=== PATIENT | female | born 1950 | race Caucasian/White ===

== ENCOUNTER 2024-05-31 22:23 | Inpatient (IN) | payer MEDICAID, OTHER ==
[~2024-05-31] VITALS: Ht 149.9 cm; Wt 66.0 kg
[2024-05-31 22:42] VITALS: PULSE 120; RESP 25; O2SAT 82
--- NOTE | 2024-05-31 22:43 | ED.PDOC ---
HPI Comments 74-year-old female came to the ER due to chest pains. Patient has history of hypertension, diabetes and dyslipidemia. Patient Lithuanian-speaking. States she has been having episodes of chest pains the past few days but the resolves spontaneously. For the past 2 hours, patient has been having constant substernal chest pains, pressure, radiating down her left arm, associated with shortness of breath. Denies any nausea or vomiting. Persistence of chest pains prompted patient to come to the emergency room. Patient saturating of 76% on room air, with a blood pressure of 155/82 mm Hg Chief Complaint: Chest Pain Time Seen by MD: 22:42 Reviewed Notes: Nurses Notes Allergies: Coded Allergies: No Known Drug Allergy (Verified Allergy, Unknown, 05/31/24) Information Source: Patient Mode of Arrival: Ambulatory Severity: Moderate Timing: Hours Duration: Since onset Prehospital treatment: None Location: Substernal Radiation: Arm (L) Quality: Pressure Onset: With Light Exertion Cardiac Risk Factors: Hyperlipidemia, HTN, Diabetes History of: Similar pain in past Associated Signs and Symptoms: SOB Past Medical History PAST MEDICAL HISTORY: DM, High Lipids, HTN Surgical History: Denies all surgeries LONG TERM CARE ADMINISTRATOR History: Denies all LONG TERM CARE ADMINISTRATOR Hx Family History Family History: Reviewed,noncontributory to illness Social History Smoker: Non-Smoker Alcohol: Denies ETOH Use Drugs: Denies Drug Use Lives In: Home Constitutional: denies: chills, diaphoresis, fatigue, fever, malaise, sweats, weakness, others EENTM: denies: blurred vision, double vision, ear bleeding, ear discharge, ear drainage, ear pain, ear ringing, eye pain, eye redness, hearing loss, mouth pain, mouth swelling, nasal discharge, nose bleeding, nose congestion, nose pain, photophobia, tearing, throat pain, throat swelling, voice changes, others Respiratory: reports: SOB at rest, shortness of breath; denies: cough, hemoptysis, orthopnea, SOB with excertion, stridor, wheezing, others Cardiovascular: reports: chest pain, dizzy spells, diaphoresis, left arm pain; denies: Dyspnea on exertion, edema, irregular heart beat, lightheadedness, palpitations, PND, syncope, others Gastrointestinal: denies: abdomen distended, abdominal pain, blood streaked bowels, constipated, diarrhea, dysphagia, difficulty swallowing, hematemesis, melena, nausea, poor appetite, poor fluid intake, rectal bleeding, rectal pain, vomiting, others Genitourinary: denies: abnormal vagina bleeding, burning, dyspareunia, dysuria, flank pain, frequency, hematuria, incontinence, pain, , vagina discharge, urgency, others Neurological: denies: dizziness, fainting, headache, left sided numbness, left sided weakness, numbness, paresthesia, pre-existing deficit, right sided numbness, right sided weakness, seizure, speech problems, tingling, tremors, weakness, others Musculoskeletal: denies: back pain, gout, joint pain, joint swelling, muscle pain, muscle stiffness, neck pain, others Integumetry: denies: bruises, change in color, change in hair/nails, dryness, laceration, lesions, lumps, rash, wounds, others Allergic/Immunocompromised: denies: Difficulty Healing, Frequent Infections, Hives, Itching, others Hematologic/Lymphatic: denies: anemia, blood clots, easy bleeding, easy bruising, swollen glands, others Endocrine: denies: excessive hunger, excessive sweating, excessive thirst, excessive urination, flushing, intolerance to cold, intolerance to heat, unexplained weight gain, unexplained weight loss, others Psychiatric: denies: anxiety, bipolar disorder, depression, hopeless, panic disorder, schizophrenia, sleepless, suicidal, others Physical Exam General Appearance: No Apparent Distress, Normal HEENT: Normal ENT Inspection, Pharynx Normal, TMs Normal Neck: Full Range of Motion, Non-Tender, Normal, Normal Inspection Respiratory: Chest Non-Tender, Lungs Clear, No Accessory Muscle Use, No Respiratory Distress, Normal Breath Sounds Cardiovascular: No Edema, No JVD, No Murmur, No Gallop, Normal Peripheral Pulses, Regular Rate/Rhythm Breast Exam: Deferred Gastrointestinal: No Organomegaly, Non Tender, No Pulsatile Mass, Normal Bowel Sounds, Soft Genitalia: Deferred Pelvic: Deferred Rectal: Deferred Extremities: No calf tenderness, Normal capillary refill, Normal inspection, Normal range of motion, Non-tender, No pedal edema Musculoskeletal : Apperance: Normal 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 Was a procedure done?: No CP Differential Dx Differential Diagnosis: Angina, Anxiety / Panic Attack, Hypoxia Differential Diagnosis: CHF Differential Diagnosis: Angina, Chest Wall Pain, Costochondritis, Esophageal reflux/spasm, Gastritis, Myocardial Infarction, Pneumonia X-Ray, Labs, Meds, VS Vital Signs Date Time Temp Pulse Resp B/P (MAP) Pulse Ox O2 Delivery O2 Flow Rate FiO2 06/01/24 02:16 127/50 06/01/24 02:00 90 31 127/50 (75) 93 06/01/24 02:00 86 06/01/24 01:48 93 06/01/24 01:13 109 24 165/76 (105) 100 06/01/24 01:10 105 164/76 99 Facial BiPAP Mask 80 06/01/24 00:37 190/69 06/01/24 00:00 98 22 209/94 (132) 100 05/31/24 23:52 158/91 05/31/24 23:08 104 24 158/91 (113) 100 05/31/24 23:05 105 21 100 Bi-Pap+ 80 80 05/31/24 23:00 105 25 158/91 95 80 05/31/24 22:55 106 158/91 95 Facial BiPAP Mask 80 05/31/24 22:52 205/91 05/31/24 22:49 114 05/31/24 22:43 109 05/31/24 22:43 106 05/31/24 22:42 120 25 82 Non-Rebreather 15 N/A 05/31/24 22:42 97.2 120 25 205/103 (137) 82 97.2 05/31/24 22:39 98.4 116 22 155/82 (106) 77 98.4 05/31/24 22:37 111 05/31/24 22:26 106 Lab Test 06/01/24 01:02 06/01/24 00:55 06/01/24 00:45 05/31/24 23:47 Range/Units Blood Gas Specimen Type Arterial Blood Gas Sample Site Right radial Blood Gas Patient Temperature 37.0 Arterial Blood Date Drawn [id number] Arterial Blood pH 7.274 L 7.350-7.450 Arterial Blood Partial Pressure CO2 31.2 L 32.0-45.0 mmHg Arterial Blood Partial Pressure O2 201.5 H 83.0-108.0 mmHg Arterial Blood HCO3 14.1 L 21.0-28.0 mmol/L Arterial Blood Oxygen Saturation 98.9 H 94.0-98.0 % Arterial Blood Base Excess -11.6 L -2.0-3.0 mmol/L Arterial Blood Oxyhemoglobin 98.3 H 94.0-98.0 % Arterial Blood Carboxyhemoglobin 0.3 L 0.5-1.5 % Arterial Blood Methemoglobin 0.3 0.0-1.5 % Anil Test Yes Blood Gas Total Hemoglobin 9.20 L 12.0-16.0 g/dL Blood Gas Modality Mask - bipap FiO2 % 80.0 Blood Gas EPAP 5 Blood Gas IPAP 12 Lactic Acid Level 1.8 0.4-2.0 mmol/L Troponin I High Sensitivity 2372 *H 1354 *H </=34 ng/L Test 05/31/24 22:36 Range/Units White Blood Count 21.0 H 4.4-10.8 10^3/uL Red Blood Count 3.29 L 4.0-5.20 10^6/uL Hemoglobin 9.1 L 12.2-16.2 g/dL Hematocrit 27.7 L 36.0-46.0 % Mean Corpuscular Volume 84.1 80.0-100.0 fL Mean Corpuscular Hemoglobin 27.6 L 28.0-32.0 pg Mean Corpuscular Hemoglobin Concent 32.8 32.0-36.0 g/dL Red Cell Distribution Width 14.4 H 11.8-14.3 % Platelet Count 397 140-450 10^3/uL Mean Platelet Volume 9.3 6.9-10.8 fL Neutrophils (%) (Auto) 81.4 H 37.0-80.0 % Lymphocytes (%) (Auto) 12.9 10.0-50.0 % Monocytes (%) (Auto) 4.7 0.0-12.0 % Eosinophils (%) (Auto) 0.6 0.0-7.0 % Basophils (%) (Auto) 0.4 0.0-2.0 % Neutrophils # (Auto) 17.1 H 1.6-8.6 10 ^3/uL Lymphocytes # (Auto) 2.7 0.4-5.4 10 ^3/uL Monocytes # (Auto) 1.0 0-1.3 10 ^3/uL Eosinophils # (Auto) 0.1 0-0.8 10 ^3/uL Basophils # (Auto) 0.1 0-0.2 10 ^3/uL Nucleated Red Blood Cells 0.0 % Prothrombin Time 10.0 9.3-11.8 sec Prothrombin Time INR 0.94 0.9-1.15 Activated Partial Thromboplast Time 30.1 24.5-34.5 SEC Sodium Level 133 L 136-145 mmol/L Potassium Level 5.4 H 3.5-5.1 mmol/L Chloride Level 102 98-107 mmol/L Carbon Dioxide Level 15 L 20-31 mmol/L Anion Gap 16 H 5-15 Blood Urea Nitrogen 101 *H 9-23 mg/dL Creatinine 7.38 H 0.550-1.02 mg/dL Glomerular Filtration Rate Calc 5 >90 mL/min BUN/Creatinine Ratio 13.7 10.0-20.0 Serum Glucose 349 H 74-106 mg/dL Calcium Level 9.6 8.7-10.4 mg/dL Troponin I High Sensitivity 276 *H </=34 ng/L B-Type Natriuretic Peptide 604.23 0-100 pg/mL Microbiology Date/Time Source Procedure Growth Status 06/01/24 00:55 Blood Blood Culture - Preliminary Resulted 06/01/24 00:45 Blood Blood Culture - Preliminary NO GROWTH AFTER 72 HOURS OF INCUBATION. Resulted CHEST RADIOGRAPH Indication: chest pain Technique: Single frontal view of the chest was obtained COMPARISON: None FINDINGS: Lines and Tubes: None Lungs: Clear Pleura: No effusion. No pneumothorax. Cardiomediastinal contours: Unremarkable Bones: Unremarkable IMPRESSION: No acute disease. Time of 1ST Reevaluation: 22:37 Reevaluation 1ST: Unchanged Patient Education/Counseling: Diagnosis, Treatment Family Education/Counseling: No Family Present Departure 1 Departure Time of Disposition: 01:49 (Patient with a acute on chronic respiratory failure presented with the shortness of breath. Patient likely with flash pulmonary edema. Patient placed on BiPAP received nitro patient was admitted for further workup) Impression: Primary Impression: Acute and chronic respiratory failure Additional Impressions: Shortness of breath Chest pain Qualified Codes: R07.9 - Chest pain, unspecified Disposition: 09 ADMITTED INPATIENT Admit to: Med Surg Condition: Serious Critical Care Note Critical Care Time?: Yes (45 min-critical care time only) Critical care comment: Acute chest pain Authorized and Performed by: Roberto Gaitan MD Total critical care time: Approximately 39 minutes Due to a high probability of clinically significant, life threatening deterioration, the patient required my highest level of preparedness to intervene emergently and I personally spent this critical care time directly and personally managing the patient. This critical care time included obtaining a history; examining the patient; pulse oximetry; ordering and review of studies; arranging urgent treatment with development of a management plan; evaluation of patient's response to treatment; frequent reassessment; and, discussions with other providers. This critical care time was performed to assess and manage the high probability of imminent, life-threatening deterioration that could result in multi-organ failure. It was exclusive of separately billable procedures and treating other patients and teaching time. Please see my other sections and the rest of the note for further information on patient assessment and treatment. Stability Stability form required: No Heart Score Heart Score: Heart Score Response (Comments) Value History Highly Suspicious [address]-Deviation 2 Age >65 2 Risk Factors >3 or Hx ASHD 2 Troponin 1-2 x's Normal limit 1 Total 9 I personally scribed for ROBERTO GAITAN MD (ÓSCAR) on 05/31/24 at 22:43. Electronically submitted by Ceasar Nieto ([employer]). I personally scribed for ROBERTO GAITAN MD (ÓSCAR) on 06/01/24 at 01:52. Electronically submitted by Ceasar Nieto ([employer]). I personally scribed for ROBERTO GAITAN MD (ÓSCAR) on 06/02/24 at 00:50. Electronically submitted by Ceasar Nieto ([facility]). ROBERTO GAITAN MD May 31, 2024 22:43
[2024-05-31 22:49] LABS: Basophils # (auto) 0.1 10 ^3/uL (0-0.2); Basophils % (auto) 0.4 % (0.0-2.0); Eosinophils # (auto) 0.1 10 ^3/uL (0-0.8); Eosinophils % (auto) 0.6 % (0.0-7.0); Hematocrit 27.7 % (36.0-46.0); Hemoglobin 9.1 g/dL (12.2-16.2); Lymphocytes # (auto) 2.7 10 ^3/uL (0.4-5.4); Lymphocytes % (auto) 12.9 % (10.0-50.0); Mean Corpuscular Hemoglobin 27.6 pg (28.0-32.0); Mean Corpuscular Hgb Conc. 32.8 g/dL (32.0-36.0); Mean Corpuscular Volume 84.1 fL (80.0-100.0); Monocytes % (auto) 4.7 % (0.0-12.0); Neutrophils # (auto) 17.1 10 ^3/uL (1.6-8.6); Neutrophils % (auto) 81.4 % (37.0-80.0); Platelet Count (auto) 397 10^3/uL (140-450); Red Blood Cells 3.29 10^6/uL (4.0-5.20); Red Cell Distribution Width 14.4 % (11.8-14.3)
[2024-05-31] MEDS: ASPirin 81 mg TAB PO ONE (22:52)
[2024-05-31] MEDS: NITROGLYCERIN 0.4 MG SL TAB SL ONE (22:52)
[2024-05-31 22:55] VITALS: BP 158/91; PULSE 106; O2SAT 95
[2024-05-31 23:00] VITALS: BP 158/91; PULSE 105; RESP 25; O2SAT 95
[2024-05-31 23:05] VITALS: PULSE 105; RESP 21; O2SAT 100
[2024-05-31 23:05] LABS: Chloride 102 mmol/L (98-107)
[2024-05-31 23:06] LABS: Anion Gap 16 (5-15); Calcium 9.6 mg/dL (8.7-10.4)
[2024-05-31 23:11] LABS: BUN/Creatinine Ratio 13.7 (10.0-20.0)
[2024-05-31 23:12] LABS: Carbon Dioxide 15 mmol/L (20-31); Glucose 349 mg/dL (74-106); Potassium 5.4 mmol/L (3.5-5.1); Sodium 133 mmol/L (136-145)
[2024-05-31 23:13] LABS: Blood Urea Nitrogen 101 mg/dL (9-23)
--- NOTE | 2024-05-31 23:22 | DVH ---
CHEST RADIOGRAPH Indication: chest pain Technique: Single frontal view of the chest was obtained COMPARISON: None FINDINGS: Lines and Tubes: None Lungs: Clear Pleura: No effusion. No pneumothorax. Cardiomediastinal contours: Unremarkable Bones: Unremarkable IMPRESSION: No acute disease.
[2024-06-01] VITALS (37 sets, daily range): BP systolic 96–164; BP diastolic 43–89; PULSE 84–116; RESP 19–30; TEMP 94.5–98.2; O2SAT 89–100
[2024-06-01] MEDS: hydrALAZINE HCL 20 MG/ML VL IV ONE (00:37)
[2024-06-01 00:50] LABS: INR 0.94 (0.9-1.15); Partial Thromboplastin Time 30.1 SEC (24.5-34.5)
[2024-06-01] MEDS: VANCOMYCIN 1GM/200ML PM 200 ML IV ONE (01:07)
[2024-06-01 01:12] LABS: Base Excess -11.6 mmol/L (-2.0-3.0)
[2024-06-01] MEDS: HEPARIN SODIUM (PORCINE) 5000 UNITS/ML 1ML VIAL IV ONE (01:42)
[2024-06-01] MEDS: HEPARIN DRIP/D5W 100UNITS/ML 250 ML IV SCH ×2 (01:57→09:30)
[2024-06-01] MEDS: CEFEPIME 2GM/50ML NS 50 ML IV ONE (02:08)
[2024-06-01] MEDS ORDERED: NITROGLYCERIN 50MG/250ML 250 ML IV SCH (02:15)
[2024-06-01] MEDS: NITROGLYCERIN 50MG/250ML 250 ML IV ONE (02:16)
[2024-06-01] MEDS ORDERED: DOCUSATE SOD 100 MG CAP PO PRN (02:30)
[2024-06-01] MEDS ORDERED: MORPHINE SULFATE INJ 2 MG/ml SYRG IV PRN ×2 (02:30)
[2024-06-01] MEDS ORDERED: DEXTROSE (50%) 50ML SYRG IV PRN ×4 (02:30→13:30)
[2024-06-01] MEDS ORDERED: NITROGLYCERIN 0.4 MG SL TAB SL PRN (02:30)
[2024-06-01] MEDS ORDERED: LORazepam 0.5 MG TAB PO PRN (02:30)
[2024-06-01] MEDS ORDERED: ONDANSETRON HCL 4 MG/2 ML VIAL IV PRN (02:30)
[2024-06-01] MEDS ORDERED: ACETAMINOPHEN 325 MG TAB PO PRN (02:30)
[2024-06-01] MEDS: INSULIN DRIP 100 UNIT/100ML 100 ML IV SCH ×3 (03:01→08:49)
--- NOTE | 2024-06-01 03:01 | DVHHPRES ---
History of Present Illness Resident Creating Document: IZZY MEJIAS History of Present Illness Shea Aviles 74-year-old female patient who presents to ED with chief complaint of intermittent oppressive retrosternal chest pain which started approximately two weeks ago in functional class IV which lasted approximately 30 minutes with intensity 5/10, radiates towards left arm and associated with dyspnea. Patient reports that her chest pain increased in intensity to 10/10, prompting her visit to the ED. patient came this past Tuesday to [place] to visit her daughter for Marlena, she is originally from [place]. Her PCP is in [place], when asked about her home medication, she presents all her pills in one bottle of telmisartan and hydrochlorothiazide, she does not recall what medication she takes and she is noncompliant with this medication. denies fever, chills, palpitation, syncope, nausea, vomiting, diarrhea, constipation, sick contacts, dysuria, bleeding and motor or sensory deficit. Time Past medical history: Hypertension, diabetes non insulin requiring, non adherent Surgical history: Denies Family history: Noncontributory Social history: Patient lives in [place], came to visit her daughter in [place]. Denies current tobacco, alcohol and other drug abuse Allergies: Denies Home medication: She does not recall home medication. Patient showed a bottle of telmisartan and hydrochlorothiazide Patient seen and examined at bedside. Currently has no chest pain. She is on nasal cannula at 2 liters/minute. Required during her ED visit BiPAP with FiO2 at 80%. Past Medical History Per HPI Past Surgical History Per HPI Family History Per HPI Past Social History Per HPI Review of Systems Review of Systems Per HPI Allergies: Coded Allergies: No Known Drug Allergy (Verified Allergy, Unknown, 05/31/24) Medications Current Medications Medications Dose Ordered Sig/[place] Route Start Time Stop Time Status Last Admin Dose Admin Heparin Sodium/ Dextrose 250 ml @ 6 mls/hr Q24H IV 06/01/24 01:45 06/01/24 01:57 6 MLS/HR Lorazepam 0.5 mg Q6HP PRN PO 06/01/24 02:30 UNV Docusate Sodium 100 mg BIDPRN PRN PO 06/01/24 02:30 UNV Acetaminophen 650 mg Q6HP PRN PO 06/01/24 02:30 UNV Ondansetron HCl 4 mg Q4HP PRN IV 06/01/24 02:30 UNV Morphine Sulfate 2 mg Q4HPRN PRN IV 06/01/24 02:30 UNV Nitroglycerin 0.4 mg Q5MINP PRN SL 06/01/24 02:30 UNV Morphine Sulfate 2 mg Q30M PRN IV 06/01/24 02:30 UNV Insulin Human (Reg)/Sodium Chloride 100 ml @ 0.5 mls/hr Q24H IV 06/01/24 02:30 UNV Diagnostic Test (Pha) 1 strip Q90MIN 06/01/24 03:00 UNV Dextrose 50 ml PRN PRN IV 06/01/24 02:30 UNV Insulin Glargine 15 units DAILY SC 06/02/24 10:00 UNV Aspirin 81 mg DAILY PO 06/01/24 10:00 UNV Atorvastatin Calcium 40 mg HS PO 06/01/24 22:00 UNV Carvedilol 3.125 mg Q12HR PO 06/01/24 10:00 UNV Furosemide 20 mg DAILY IV 06/01/24 10:00 UNV Pantoprazole Sodium 40 mg DAILY IV 06/01/24 10:00 UNV Ipratropium Lyman 0.5 mg Q6HWA NEB 06/01/24 06:00 UNV Levalbuterol HCl 0.625 mg Q6HR NEB 06/01/24 06:00 UNV Ceftriaxone Sodium 50 ml @ 100 mls/hr DAILY@09 IV 06/01/24 09:00 UNV Exam Vital Signs Vital Signs Date Time Temp Pulse Resp B/P (MAP) Pulse Ox O2 Delivery O2 Flow Rate FiO2 06/01/24 02:16 127/50 06/01/24 02:00 90 31 93 06/01/24 01:10 Facial BiPAP Mask 80 05/31/24 22:42 15 05/31/24 22:42 97.2 97.2 Exam Patient lying in bed, in no acute distress General: Lucid, afebrile, mucosae are moist Cardiovascular: Normal S1 and S2. No murmurs, gallops or rubs Respiratory: Regular ventilation mechanics, tachypneic. Diffuse expiratory wheezing, bibasilar rales, rest of lung auscultation is clear. She is on nasal cannula2 liters/minute Abdomen: Soft, nontender, no organomegaly, normal bowel sounds MSK/skin: Mobilizes 4 limbs. Skin is dry and warm Neurological: Oriented in 3 spheres. No motor no sensitive deficits. Pupils are isocoric and reactive Labs/Xrays Labs Test 06/01/24 01:02 06/01/24 00:55 06/01/24 00:45 05/31/24 22:36 Range/Units Blood Gas Specimen Type Arterial Blood Gas Sample Site Right radial Blood Gas Patient Temperature 37.0 Arterial Blood Date Drawn [id number] Arterial Blood pH 7.274 L 7.350-7.450 Arterial Blood Partial Pressure CO2 31.2 L 32.0-45.0 mmHg Arterial Blood Partial Pressure O2 201.5 H 83.0-108.0 mmHg Arterial Blood HCO3 14.1 L 21.0-28.0 mmol/L Arterial Blood Oxygen Saturation 98.9 H 94.0-98.0 % Arterial Blood Base Excess -11.6 L -2.0-3.0 mmol/L Arterial Blood Oxyhemoglobin 98.3 H 94.0-98.0 % Arterial Blood Carboxyhemoglobin 0.3 L 0.5-1.5 % Arterial Blood Methemoglobin 0.3 0.0-1.5 % Anil Test Yes Blood Gas Total Hemoglobin 9.20 L 12.0-16.0 g/dL Blood Gas Modality Mask - bipap FiO2 % 80.0 Blood Gas EPAP 5 Blood Gas IPAP 12 Lactic Acid Level 1.8 0.4-2.0 mmol/L Troponin I High Sensitivity 2372 *H </=34 ng/L White Blood Count 21.0 H 4.4-10.8 10^3/uL Red Blood Count 3.29 L 4.0-5.20 10^6/uL Hemoglobin 9.1 L 12.2-16.2 g/dL Hematocrit 27.7 L 36.0-46.0 % Mean Corpuscular Volume 84.1 80.0-100.0 fL Mean Corpuscular Hemoglobin 27.6 L 28.0-32.0 pg Mean Corpuscular Hemoglobin Concent 32.8 32.0-36.0 g/dL Red Cell Distribution Width 14.4 H 11.8-14.3 % Platelet Count 397 140-450 10^3/uL Mean Platelet Volume 9.3 6.9-10.8 fL Neutrophils (%) (Auto) 81.4 H 37.0-80.0 % Lymphocytes (%) (Auto) 12.9 10.0-50.0 % Monocytes (%) (Auto) 4.7 0.0-12.0 % Eosinophils (%) (Auto) 0.6 0.0-7.0 % Basophils (%) (Auto) 0.4 0.0-2.0 % Neutrophils # (Auto) 17.1 H 1.6-8.6 10 ^3/uL Lymphocytes # (Auto) 2.7 0.4-5.4 10 ^3/uL Monocytes # (Auto) 1.0 0-1.3 10 ^3/uL Eosinophils # (Auto) 0.1 0-0.8 10 ^3/uL Basophils # (Auto) 0.1 0-0.2 10 ^3/uL Nucleated Red Blood Cells 0.0 % Prothrombin Time 10.0 9.3-11.8 sec Prothrombin Time INR 0.94 0.9-1.15 Activated Partial Thromboplast Time 30.1 24.5-34.5 SEC Sodium Level 133 L 136-145 mmol/L Potassium Level 5.4 H 3.5-5.1 mmol/L Chloride Level 102 98-107 mmol/L Carbon Dioxide Level 15 L 20-31 mmol/L Anion Gap 16 H 5-15 Blood Urea Nitrogen 101 *H 9-23 mg/dL Creatinine 7.38 H 0.550-1.02 mg/dL Glomerular Filtration Rate Calc 5 >90 mL/min BUN/Creatinine Ratio 13.7 10.0-20.0 Serum Glucose 349 H 74-106 mg/dL Calcium Level 9.6 8.7-10.4 mg/dL B-Type Natriuretic Peptide 604.23 0-100 pg/mL Assessment/Plan Assessment/Plan Assessment: NSTEMI probable type 1 Hypertensive emergency DKA Sepsis probably secondary to UTI does pneumonia Acute congestive heart failure (pending LVEF) Acute respiratory failure due to above ROSSY hemodynamically mediated Hyperkalemia Diabetes Nonadherent Plan: Optimize afterload, resolved with IV hydralazine and p.o. antihypertensive medication. Nitroglycerin on standby Patient is currently on heparin drip, IV furosemide, administer low-dose aspirin, on statins. EKG completed which shows severe ischemia (ST elevation in aVR, which is associated with severe left main disease). Consulted Cardiology to evaluate coronary angiography (patient has severe ROSSY) Consulted Nephrology to evaluate need of hemodialysis Patient currently on IV insulin drip, oxygen therapy (on admission required BiPAP, currently on nasal cannula2 liters/minute), empiric IV antibiotic (ceftriaxone), bronchodilators. Have counseled patient with adherence to medication and the importance of knowing what medication she is taking. Goals of care discussed with patient for over 18 minutes: Full code status Discussed plan with Dr. Astudillo, patient, family and nurses: Patient is currently on LOVE status due to insulin drip, she is on heparin drip, requiring oxygen therapy, IV antibiotics, bronchodilators. Consulted Cardiology and Nephrology to optimize medical therapy and evaluate need for coronary angiography and hemodialysis. Patient has poor prognosis. Plan discussed with: Patient, Daughter, Other (Nurses) My Orders Orders - IZZY MEJIAS RESIDENT Procedure Category Date Status Time Admit ADMIT 06/01/24 Transmitted 02:26 Code Status CODE 06/01/24 Transmitted 02:26 Vital Signs [facility] 06/01/24 In Process 02:26 Review Orders With [facility] 06/01/24 In Process Adm. 02:26 Npo (Nothing By DIET 06/01/24 Transmitted Mouth) Diet Breakfast Lorazepam Tablet PHA 06/01/24 Logged (Ativan Tablet) 02:30 Docusate Sodium PHA 06/01/24 Logged Capsule (Colace 02:30 Acetaminophen Tablet PHA 06/01/24 Logged (Tylenol Tablet) 02:30 Notify Md Of Changes [facility] 06/01/24 In Process From Base 02:26 Advance Directive [facility] 06/01/24 In Process 02:26 Echo 2d Mode Cardiac US 06/01/24 Logged DOP 02:26 Patient Condition ORDERS 06/01/24 Transmitted 02:26 Allergies [facility] 06/01/24 In Process 02:26 Ondansetron Hcl PHA 06/01/24 Logged (Zofran) 02:30 Morphine Sulfate PHA 06/01/24 Logged Injection 02:30 Nitroglycerin PHA 06/01/24 Logged Sublingual (Ntrostat 02:30 Morphine Sulfate PHA 06/01/24 Logged Injection 02:30 Oxygen By Nasal RT 06/01/24 Transmitted Cannula 02:26 Notify Of Changes [facility] 06/01/24 In Process From Base 02:26 Brick Loader For [facility] 06/01/24 In Process 24 Hours 02:26 Emergency Dysrhythmia [facility] 06/01/24 In Process Protocol 02:26 Rhythm Strips Once [facility] 06/01/24 In Process Every Shift 02:26 Vitamin D, 25-Hydroxy LAB 06/01/24 Logged 02:26 Vitamin B12 LAB 06/01/24 Logged 02:26 Urinalysis LAB 06/01/24 Logged 02:26 Thyroid Stimulating LAB 06/01/24 Logged Hormone 02:26 Phosphorus LAB 06/01/24 Logged 02:26 Magnesium LAB 06/01/24 Logged 02:26 Lipid Panel LAB 06/01/24 Logged 02:26 Hemoglobin A1c LAB 06/01/24 Logged 02:26 Drug Screen LAB 06/01/24 Logged 02:26 Urine Creatinine LAB 06/01/24 Logged 02:26 Osmolality Urine LAB 06/01/24 Logged 02:26 Microalbumin Random LAB 06/01/24 Logged Urine 02:26 Urine Sodium LAB 06/01/24 Logged 02:26 Urine LAB 06/01/24 Logged Protein/Creatinine Urine Protein LAB 06/01/24 Logged 02:26 Urine Bacterial [facility] 06/01/24 Logged Culture 02:26 Kidney US 06/01/24 Logged 04:00 Complete Blood Count LAB 06/01/24 Logged 04:00 Insulin Drip 100 PHA 06/01/24 Logged Unit/100ml (Myxredlin 02:30 Glucose Blood PHA 06/01/24 Logged (Accu-Chek Comfort 03:00 D/C All Diabetic [facility] 06/01/24 In Process Medications 02:26 Insulin Drip Protocol [facility] 06/01/24 In Process 02:26 Dextrose 50% Syringe PHA 06/01/24 Logged 02:30 Insulin Lantus PHA 06/01/24 Logged (Glargine) (Lantus) 02:30 Insulin Lantus PHA 06/02/24 Logged (Glargine) (Lantus) 10:00 Basic Metabolic Panel LAB 06/01/24 Logged 02:26 Aspirin Tablet PHA 06/01/24 Logged 10:00 Atorvastatin (Lipitor) PHA 06/01/24 Logged 02:30 Atorvastatin (Lipitor) PHA 06/01/24 Logged 22:00 Carvedilol Tablet PHA 06/01/24 Logged (Coreg Tablet) 10:00 Furosemide Injection PHA 06/01/24 Logged (Lasix Injection) 10:00 Furosemide Injection PHA 06/01/24 Logged (Lasix Injection) 02:30 Pantoprazole PHA 06/01/24 Logged (Protonix) 02:30 Pantoprazole PHA 06/01/24 Logged (Protonix) 10:00 Ipratropium Medneb PHA 06/01/24 Logged (Atrovent Medneb) 06:00 Levalbuterol Hcl PHA 06/01/24 Logged (Xopenex Medneb) 06:00 Ceftriaxone 1gm/50ml PHA 06/01/24 Logged D5w (Rocephin) 09:00 Respiratory Culture [facility]ORGAN 06/01/24 Logged W/ Gs 02:38 Sputum Induction RT 06/01/24 Logged 02:38 Comprehensive LAB 06/01/24 Logged Metabolic Panel 04:00 Date of Service: Jun 01, 2024 Billing Provider: JOSHUA ASTUDILLO MD Common Visit Codes: [id number] INP/OBS CARE (HIGH) Secondary Visit Codes: [id number] CARE PLAN 30 MINUTES IZZY MEJIAS RESIDENT Jun 01, 2024 03:01 OJSHUA ASTUDILLO MD Jun 01, 2024 09:55
[2024-06-01] MEDS: ACCU-CHEK COMFORT CURVE STRIP VI SCH ×4 (03:03→16:40)
[2024-06-01 03:07] LABS: Basophils # (auto) 0.1 10 ^3/uL (0-0.2); Basophils % (auto) 0.4 % (0.0-2.0); Eosinophils # (auto) 0 10 ^3/uL (0-0.8); Lymphocytes # (auto) 0.6 10 ^3/uL (0.4-5.4); Lymphocytes % (auto) 2.5 % (10.0-50.0)
[2024-06-01 03:08] LABS: Hematocrit 25.4 % (36.0-46.0); Hemoglobin 7.8 g/dL (12.2-16.2); Mean Corpuscular Hemoglobin 26.8 pg (28.0-32.0); Mean Corpuscular Hgb Conc. 30.6 g/dL (32.0-36.0); Mean Corpuscular Volume 87.6 fL (80.0-100.0); Monocytes # (auto) 0.7 10 ^3/uL (0-1.3); Monocytes % (auto) 3.1 % (0.0-12.0); Neutrophils # (auto) 22.1 10 ^3/uL (1.6-8.6); Platelet Count (auto) 354 10^3/uL (140-450); Red Cell Distribution Width 14.4 % (11.8-14.3); White Blood Cell 23.5 10^3/uL (4.4-10.8)
[2024-06-01] MEDS: ATORVASTATIN 20 MG TAB PO ONE (03:13)
[2024-06-01] MEDS: INSULIN LANTUS (GLARGINE) 1 /0.01ml (100units/ml) SC ONE (03:13)
[2024-06-01] MEDS: PANTOPRAZOLE 40 MG/10 ML VIAL INJ IV ONE (03:13)
[2024-06-01] MEDS: FUROSEMIDE 20 MG/2 ML VIAL IV ONE (03:13)
[2024-06-01 03:31] LABS: Alanine Aminotransferase 14 U/L (7-40); Albumin 4.4 g/dL (3.2-4.8); Alkaline Phosphatase 99 U/L (46-116); Anion Gap 17 (5-15); Aspartate Aminotransferase 39 U/L (13-40); BUN/Creatinine Ratio 13.5 (10.0-20.0); Calcium 9.1 mg/dL (8.7-10.4); Chloride 102 mmol/L (98-107); Magnesium 2.5 mg/dL (1.6-2.6); Total Protein 7.8 g/dL (5.7-8.2)
[2024-06-01 03:37] LABS: Bilirubin, Total 0.3 mg/dL (0.2-1.0); Carbon Dioxide 12 mmol/L (20-31); Sodium 131 mmol/L (136-145)
[2024-06-01 03:38] LABS: Blood Urea Nitrogen 103 mg/dL (9-23); Glucose 419 mg/dL (74-106); Potassium 6.3 mmol/L (3.5-5.1)
[2024-06-01] MEDS: InsuLIN REG 1unit/0.01ml Soln (100units/ml) IV ONE (04:03)
[2024-06-01 04:14] LABS: Triglycerides 147 mg/dL (< 150)
[2024-06-01] MEDS: CALCIUM GLUC 1,000mg/50ml-NS 50 ML IV ONE (04:17)
[2024-06-01 04:19] LABS: Cholesterol 227 mg/dL (< 200); HDL Cholesterol 37 mg/dL (40-59); LDL Cholesterol 165 mg/dL (< 100)
[2024-06-01] MEDS: InsuLIN REG 1unit/0.01ml Soln (100units/ml) SC SCH ×2 (04:31→16:41)
[2024-06-01] MEDS: ALBUTEROL SULF 2.5 MG/0.5ML(0.5%) NEB SOLN NEB ONE (04:38)
[2024-06-01] MEDS: SODIUM ZIRCONIUM CYCL 10 GM PAK PO ONE (04:38)
[2024-06-01] MEDS: SODIUM BICARB 8.4% 50Meq/50ml SYR INJ IV ONE (04:50)
[2024-06-01] MEDS: DEXTROSE (50%) 50ML SYRG IV ONE (04:57)
[2024-06-01 05:24] LABS: Urine Bacteria None Seen /hpf (None Seen)
[2024-06-01 05:47] LABS: Creatinine, Urine 42.8 mg/dL (30.0-125.0); Creatinine, Urine 44.36 mg/dL (30.0-125.0)
[2024-06-01 05:50] LABS: Urine Protein/Creatinine Ratio 8.53
[2024-06-01 05:56] LABS: Amphetamine Screen, Urine Neg (NEGATIVE); Barbiturate Scree,Urine Neg (NEGATIVE); Benzodiazephine Screen, Urine Neg (NEGATIVE); Cannabinoid Screen, Urine Neg (NEGATIVE); Cocaine Screen, Urine Neg (NEGATIVE); Opiate Scree,Urine Neg (NEGATIVE); Phencyclidine Screen, Urine Neg (NEGATIVE); Protein, Urine 378.6 mg/dL (1-14)
[2024-06-01 06:08] LABS: Urine Blood 1+ /uL (Negative); Urine Clarity Clear (Clear); Urine Color Colorless (Yellow); Urine Protein, UAD 2+ (Negative); Urine Specific Gravity 1.012 (1.001-1.035); Urine Squamous Epithelial Cell FEW /hpf (<5); Urine Urobilinogen Normal (Negative); Urine WBC 17 /HPF (0-5)
[2024-06-01 06:19] LABS: COVID19 ANTIGEN SOFIA FIA NEGATIVE (NEGATIVE); Rapid Influenza A Negative (Negative); Rapid Influenza B Negative (Negative)
--- NOTE | 2024-06-01 06:48 | DVH ---
INDICATION: ROSSY TECHNIQUE: Multiple real-time sonographic images of the kidneys and bladder were obtained. COMPARISON: None FINDINGS: The right kidney measures 8.1 cm in length, which is normal in size. There is increased ech ogenicity of the right kidney. No hydronephrosis. Perinephric free fluid. The left kidney measures 9.3 cm in length, which is normal in size. There is increased echogenicity o f the left kidney. There is a hypoechoic mass with peripheral vascularity that measures 2.4 x 2.1 x 2 .3 cm in the interpolar region. No hydronephrosis. Perinephric free fluid. No large intraluminal masses are seen in the bladder. Prior to voiding the bladder volume measures vo lume 400 cc. IMPRESSION: 1. Increased echotexture of the kidneys which May suggest medical renal disease. No hydronephrosis. 2. Indeterminate 2.4 cm hypoechoic mass in the left kidney. MRI of the abdomen pelvis is recommende d with intravenous contrast when clinically feasible.
[2024-06-01] MEDS: LEVALBUTEROL HCL 1.25 MG/3 ML NEB NEB SCH ×2 (06:56→09:56)
[2024-06-01] MEDS: IPRATROPIUM BROM 0.5 MG/2.5ML INH SOL NEB SCH ×2 (06:56→09:56)
[2024-06-01 07:12] LABS: Base Excess -16.6 mmol/L (-2.0-3.0)
[2024-06-01 08:11] LABS: Chloride 102 mmol/L (98-107); Potassium 3.9 mmol/L (3.5-5.1)
[2024-06-01 08:12] LABS: Anion Gap 22 (5-15)
[2024-06-01 08:13] LABS: Calcium 9.8 mg/dL (8.7-10.4)
[2024-06-01 08:18] LABS: INR 0.97 (0.9-1.15); Partial Thromboplastin Time 36.5 SEC (24.5-34.5); Prothrombin Time 10.3 sec (9.3-11.8)
[2024-06-01 08:23] LABS: Carbon Dioxide 11 mmol/L (20-31); Sodium 135 mmol/L (136-145)
[2024-06-01 08:24] LABS: Blood Urea Nitrogen 106 mg/dL (9-23); Glucose 457 mg/dL (74-106)
--- NOTE | 2024-06-01 08:24 | ECG ---
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
--- NOTE | 2024-06-01 08:25 | ECG ---
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
--- NOTE | 2024-06-01 08:26 | ECG ---
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
[2024-06-01 08:27] LABS: BUN/Creatinine Ratio 13.7 (10.0-20.0)
[2024-06-01] MEDS ORDERED: LACTATED RINGER'S 250 ML IV ONE (08:30)
[2024-06-01] MEDS: SODIUM BICARB 8.4% 50Meq/50ml SYR Vial IV ONE (08:30)
[2024-06-01] MEDS ORDERED: SODIUM CHLORIDE 0.9% 250 ML IV ONE (08:30)
[2024-06-01] MEDS ORDERED: LABETALOL HCL 20 MG/4 ML VL IV PRN (08:45)
--- NOTE | 2024-06-01 08:58 | DVHINCON2 ---
Date Seen: Jun 01, 2024 Referring Physician MD Kandy Reason for Consultation NSTEMI, chest pain History of Present Illness This is a pleasant Maori-speaking 74-year-old female patient who presents to the emergency room with chief complaint of chest pain. The patient reports that she started experiencing chest pain on 05/28/24. She reports that the pain was intermittent and went away so she did not think much of it. She reports having intermittent chest pain everyday until emergency room arrival. She describes the pain as unprovoked, intermittent, pressure-like in nature, substernal with radiation towards her left arm. Associated symptoms include shortness of breath. Initial twelve lead electrocardiogram reveals sinus tachycardia with global ST segment changes. Initial troponin level of 276ng/L with significant up trend and current peak level at 3306ng/L. Significant past medical history includes hypertension, dyslipidemia, and type 2 diabetes mellitus. Of note, the patient came to the emergency room with blood pressures reaching as high as 209/94. The patient is not from this area and states that she is visiting her daughter from [place]. Past Medical History Past medical history reviewed. No other significant than mentioned above. Past Surgical History Family History Family history reviewed. Social History Denies the use of tobacco, alcohol or illicit drugs. Allergies: Coded Allergies: No Known Drug Allergy (Verified Allergy, Unknown, 05/31/24) Home Meds Home medications reviewed. Current Medications Current Medications Medications (Trade) Dose Ordered Sig/[place] Route PRN Reason Start Time Stop Time Status Last Admin Heparin Sodium/ Dextrose 250 ml @ 6 mls/hr Q24H IV 06/01/24 01:45 06/01/24 01:57 Nitroglycerin 250 ml @ 1.5 mls/hr Q24H IV 06/01/24 02:15 06/01/24 02:08 DC Lorazepam (Ativan Tablet) 0.5 mg Q6HP PRN PO ANXIETY 06/01/24 02:30 Docusate Sodium (Colace Capsule) 100 mg BIDPRN PRN PO FOR CONSTIPATION 06/01/24 02:30 06/01/24 08:29 DC Acetaminophen (Tylenol Tablet) 650 mg Q6HP PRN PO PAIN SCALE 1-3 OR TEMP>100.4 06/01/24 02:30 Ondansetron HCl (Zofran) 4 mg Q4HP PRN IV NAUSEA / VOMITING 06/01/24 02:30 Morphine Sulfate 2 mg Q4HPRN PRN IV SEVERE PAIN (7-10 PAIN SCALE) 06/01/24 02:30 Nitroglycerin (Ntrostat Sublingual) 0.4 mg Q5MINP PRN SL FOR CHEST PAIN 06/01/24 02:30 Morphine Sulfate 2 mg Q30M PRN IV FOR CHEST PAIN 06/01/24 02:30 Insulin Human (Reg)/Sodium Chloride 100 ml @ 0.5 mls/hr Q24H IV 06/01/24 02:30 06/01/24 08:30 DC 06/01/24 08:24 Diagnostic Test (Pha) (Accu-Chek Comfort Curve T) 1 strip Q90MIN 06/01/24 03:00 06/01/24 05:27 DC 06/01/24 03:03 Dextrose 50 ml PRN PRN IV BG LESS Than 70 AND CALL MD 06/01/24 02:30 06/01/24 03:04 DC Insulin Glargine (Lantus) 15 units DAILY SC 06/02/24 10:00 06/01/24 08:35 DC Aspirin 81 mg DAILY PO 06/01/24 10:00 Atorvastatin Calcium (Lipitor) 40 mg HS PO 06/01/24 22:00 Carvedilol (Coreg Tablet) 3.125 mg Q12HR PO 06/01/24 10:00 06/01/24 08:29 DC Furosemide (Lasix Injection) 20 mg DAILY IV 06/01/24 10:00 06/01/24 05:59 DC Pantoprazole Sodium (Protonix) 40 mg DAILY IV 06/01/24 10:00 Ipratropium [place] (Atrovent Medneb) 0.5 mg Q6HWA NEB 06/01/24 06:00 06/01/24 08:29 DC 06/01/24 06:56 Levalbuterol HCl (Xopenex Medneb) 0.625 mg Q6HR NEB 06/01/24 06:00 06/01/24 08:29 DC 06/01/24 06:56 Ceftriaxone Sodium 50 ml @ 100 mls/hr DAILY@09 IV 06/01/24 09:00 06/01/24 08:29 DC Diagnostic Test (Pha) (Accu-Chek Comfort Curve T) 1 strip IQ4HR 06/01/24 04:00 06/01/24 08:06 DC 06/01/24 04:25 Insulin Human Regular (InsuLIN R) IQ4HR SC 06/01/24 04:00 06/01/24 08:06 DC 06/01/24 04:31 Dextrose 50 ml UD PRN IV Blood Sugar LESS THAN 60 06/01/24 03:15 06/01/24 08:06 DC Insulin Human (Reg)/Sodium Chloride 100 ml @ 0.5 mls/hr Q24H IV 06/01/24 08:15 06/01/24 08:38 DC Diagnostic Test (Pha) (Accu-Chek Comfort Curve T) 1 strip Q90MIN 06/01/24 09:00 Dextrose 50 ml PRN PRN IV BG LESS Than 70 AND CALL MD 06/01/24 08:15 Insulin Glargine (Lantus) 15 units DAILY SC 06/02/24 10:00 Cancel Ipratropium [place] (Atrovent Medneb) 0.5 mg Q4HR NEB 06/01/24 10:00 Levalbuterol HCl (Xopenex Medneb) 0.625 mg Q4HR NEB 06/01/24 10:00 Cefepime HCl 50 ml @ 12.5 mls/hr DAILY IV 06/01/24 10:00 Doxycycline Hyclate 100 ml @ 50 mls/hr Q12H IV 06/01/24 08:30 Labetalol HCl (Labetalol HCl) 10 mg Q6HPRN PRN IV SBP>160 06/01/24 08:45 Insulin Human (Reg)/Sodium Chloride 100 ml @ 0.5 mls/hr Q24H IV 06/01/24 08:45 06/01/24 08:49 Review of Systems Constitutional: No symptom reported Ears, Nose, & Throat: No symptom reported Eyes: No symptom reported Neurological: No symptoms reported Pulmonary/Respiratory: Shortness of breath Cardiovascular: Chest pain Gastrointestinal: No symptom reported Genitourinary: No symptom reported Musculoskeletal: No symptom reported Skin: No symptom reported Psychiatric: No symptom reported Endocrine: No symptom reported Hematologic/Lymphatic: No symptom reported Vital Signs Vital Signs Date Time Temp Pulse Resp B/P (MAP) Pulse Ox O2 Delivery O2 Flow Rate FiO2 06/01/24 07:49 98 Simple Mask* 6 50 06/01/24 07:41 98.0 105 25 150/63 (92) 98.0 Physical Exam General Appearance: Cooperative. Well-developed. Well-nourished. No acute distress. Pulmonary/Respiratory: Coarse throughout Cardiovascular/Chest: Regular rate and rhythm. Peripheral Pulses: 2+ Radial (R). 2+ Radial (L). 2+ Pedal (R). 2+ Pedal (L) Abdominal Exam: Normal bowel sounds. Ankle Exam: Negative ankle edema Lower extremities: Negative lower extremity edema Neuro/Mental Status: A/OX4, coherent. Thoughts/Psych: Normal thought pattern. Appropriate mood and affect. Good judgment and insight. Appearance: No acute distress. Skin Exam: Normal inspection. Normal color. Warm and dry. Labs/Diagnostic Data Labs Test 06/01/24 08:25 06/01/24 07:56 06/01/24 07:50 06/01/24 07:05 Range/Units POC Glucose 421 *H 70-106 mg/dl Prothrombin Time 10.3 9.3-11.8 sec Prothrombin Time INR 0.97 0.9-1.15 Activated Partial Thromboplast Time 36.5 H 24.5-34.5 SEC Sodium Level 135 L 136-145 mmol/L Potassium Level 3.9 # 3.5-5.1 mmol/L Chloride Level 102 98-107 mmol/L Carbon Dioxide Level 11 L 20-31 mmol/L Anion Gap 22 H 5-15 Blood Urea Nitrogen 106 *H 9-23 mg/dL Creatinine 7.73 H 0.550-1.02 mg/dL Glomerular Filtration Rate Calc 5 >90 mL/min BUN/Creatinine Ratio 13.7 10.0-20.0 Serum Glucose 457 *H 74-106 mg/dL Calcium Level 9.8 8.7-10.4 mg/dL Beta-Hydroxybutyric Acid 0.137 < 0.4 mmol/L Blood Gas Specimen Type Arterial Blood Gas Sample Site Right radial Blood Gas Patient Temperature 37.0 Arterial Blood Date Drawn [id number] Arterial Blood pH 7.217 *L 7.350-7.450 Arterial Blood Partial Pressure CO2 24.1 L 32.0-45.0 mmHg Arterial Blood Partial Pressure O2 61.6 L 83.0-108.0 mmHg Arterial Blood HCO3 9.6 L 21.0-28.0 mmol/L Arterial Blood Oxygen Saturation 88.0 L 94.0-98.0 % Arterial Blood Base Excess -16.6 L -2.0-3.0 mmol/L Arterial Blood Oxyhemoglobin 87.5 L 94.0-98.0 % Arterial Blood Carboxyhemoglobin 0.2 L 0.5-1.5 % Arterial Blood Methemoglobin 0.4 0.0-1.5 % Anil Test Modified Blood Gas Total Hemoglobin 8.40 L 12.0-16.0 g/dL Blood Gas Liter Flow 5.00 Blood Gas Modality Nasal cannula Blood Gas Spontaneous Rate 28 FiO2 % 40.0 Blood Gas Critical Value Read Back Yes Blood Gas Notified Whom piotr Gardner Blood Gas Notified Time [id number] Blood Gas Notified By jeffrey Moran 06/01/24 05:07 06/01/24 05:05 06/01/24 02:55 06/01/24 01:02 Range/Units Urine Color Colorless Yellow Urine Clarity Clear Clear Urine pH 6.0 5.0-9.0 Urine Specific [place] 1.012 1.001-1.035 Urine Protein 2+ H Negative Urine Ketones Negative Negative Urine Blood 1+ H Negative /uL Urine Nitrite Negative Negative Urine Bilirubin Negative Negative Urine Urobilinogen Normal Negative mg/dL Urine Leukocyte Esterase Negative Negative /uL Urine RBC 2 0 - 4 /hpf Urine Microscopic WBC 17 H 0-5 /HPF Urine Squamous Epithelial Cells Few <5 /hpf Urine Bacteria None seen None Seen /hpf Urine Osmolality 382 mOsm/kg Urine Creatinine 44.36 30.0-125.0 mg/dL Urine Protein/Creatinine Ratio 8.53 Urine Sodium 49 40-220 mmol/L Urine Glucose 4+ H Normal mg/dL Urine Total Protein 378.6 H 1-14 mg/dL Urine Opiates Screen Neg NEGATIVE Urine Fentanyl Screen Neg NEGATIVE Urine Barbiturates Screen Neg NEGATIVE Urine Phencyclidine Screen Neg NEGATIVE Urine Amphetamines Screen Neg NEGATIVE Urine Benzodiazepines Screen Neg NEGATIVE Urine Cocaine Screen Neg NEGATIVE Urine Cannabinoids Screen Neg NEGATIVE Influenza Type A Antigen Negative Negative Influenza Type B Antigen Negative Negative SARS-CoV-2 Antigen (Rapid) Negative NEGATIVE White Blood Count 23.5 H 4.4-10.8 10^3/uL Red Blood Count 2.90 L 4.0-5.20 10^6/uL Hemoglobin 7.8 L 12.2-16.2 g/dL Hematocrit 25.4 L 36.0-46.0 % Mean Corpuscular Volume 87.6 # 80.0-100.0 fL Mean Corpuscular Hemoglobin 26.8 L 28.0-32.0 pg Mean Corpuscular Hemoglobin Concent 30.6 L 32.0-36.0 g/dL Red Cell Distribution Width 14.4 H 11.8-14.3 % Platelet Count 354 140-450 10^3/uL Mean Platelet Volume 9.3 6.9-10.8 fL Neutrophils (%) (Auto) 94.0 H 37.0-80.0 % Lymphocytes (%) (Auto) 2.5 L 10.0-50.0 % Monocytes (%) (Auto) 3.1 0.0-12.0 % Eosinophils (%) (Auto) 0.0 0.0-7.0 % Basophils (%) (Auto) 0.4 0.0-2.0 % Neutrophils # (Auto) 22.1 H 1.6-8.6 10 ^3/uL Lymphocytes # (Auto) 0.6 0.4-5.4 10 ^3/uL Monocytes # (Auto) 0.7 0-1.3 10 ^3/uL Eosinophils # (Auto) 0 0-0.8 10 ^3/uL Basophils # (Auto) 0.1 0-0.2 10 ^3/uL Nucleated Red Blood Cells 0.0 % Hemoglobin A1c 5.3 <5.7 % A1C Phosphorus Level 6.0 H 2.4-5.1 mg/dL Magnesium Level 2.5 1.6-2.6 mg/dL Total Bilirubin 0.3 0.2-1.0 mg/dL Aspartate Amino Transferase (AST) 39 13-40 U/L Alanine Aminotransferase (ALT) 14 7-40 U/L Alkaline Phosphatase 99 46-116 U/L Total Protein 7.8 5.7-8.2 g/dL Albumin 4.4 3.2-4.8 g/dL Triglycerides Level 147 < 150 mg/dL Cholesterol Level 227 H < 200 mg/dL LDL Cholesterol 165 H < 100 mg/dL HDL Cholesterol 37 L 40-59 mg/dL Vitamin B12 Level 390 211-911 pg/mL Vitamin D 25-Hydroxy 10.9 L 30.0-100 ng/mL Thyroid Stimulating Hormone (TSH) 0.71 0.55-4.78 uIU/mL Blood Gas EPAP 5 Blood Gas IPAP 12 Test 05/31/24 22:36 Range/Units B-Type Natriuretic Peptide 604.23 0-100 pg/mL Assessment NSTEMI, rule out type 1 Rule out structural heart disease Hypertensive emergency, resolved Dyslipidemia Sepsis DKA Acute kidney injury Hyperkalemia Plan/Recommendation We will continue with the following plan/recommendations (Dr. De La Cruz): * Transthoracic echocardiogram to evaluate cardiac function * Chest pain protocol * MARTHA score: 5 points * HEART score: 8 points (high score) * Heparin drip per pharmacy protocol * Single antiplatelet therapy and lipid-lowering agent * Antibiotics per primary care team * Close Cardiac surveillance Case discussed with . Given the patient's clinical presentation, elevated troponin level, and twelve lead electrocardiogram, the patient may benefit from a coronary angiogram with left heart catheterization.The procedure was discussed with the patient in full detail including risks and benefits. Risks include but are not limited to bleeding, contrast-induced nephropathy, stroke, and even . The patient and her family are concerned about risks of further renal damage. At this time, the patient would like time to consider undergoing a coronary angiogram. If the patient is agreeable, we will tentatively schedule the patient for coronary angiogram with left heart cath eterization on 06/04/24 if clinically stable. In the meantime, continue with medical management. Further recommendations per clinical course and progression. Thank you for allowing us to care for this patient. Please call with any questions or concerns. Critical care time spent: 44 minutes This medical document was created using an electronic medical record system with voice recognition software and computerized dictation system. Although this document has been carefully reviewed, there might still be some phonetic and typographical errors. Occasional wrong-word or ``sound-alike substitutions may have occurred due to the inherent limitations of voice recognition software. These areas are purely typographical due to imperfections of the software programs and do not reflect any compromise in the patient's medical care. Please read the chart carefully and recognize, using context, where these substitutions have occurred. Plan discussed with: Patient, Daughter NYHA Physical activity limitations: NA Date of Service: Jun 01, 2024 Billing Provider: RYAN WOODS Cardiology Common Codes: 33859-JNAFLIV INP/OBS CARE (High) Cardiology Consultation Codes: 38102-[id number] CONSULT <45MIN RYAN WOODS Jun 01, 2024 08:58
[2024-06-01] MEDS ORDERED: cefTRIAXone 1GM/50ML D5W 50 ML IV SCH (09:00)
[2024-06-01] MEDS: FUROSEMIDE 100 MG/10ML VIAL IV ONE (09:06)
[2024-06-01] MEDS: DOXYCYCLINE 100MG/100ML 100 ML IV SCH (09:14)
[2024-06-01] MEDS ORDERED: FUROSEMIDE 20 MG/2 ML VIAL IV SCH (10:00)
[2024-06-01] MEDS ORDERED: CEFEPIME 1GM/ 50ML 50 ML IV SCH (10:00)
[2024-06-01] MEDS ORDERED: CARVEDILOL 3.125 MG TAB PO SCH (10:00)
[2024-06-01] MEDS: SODIUM CHLORIDE 0.9% 500 ML IV ONE ×2 (10:06→22:00)
[2024-06-01] MEDS: PANTOPRAZOLE 40 MG/10 ML VIAL INJ IV SCH (10:10)
[2024-06-01] MEDS: ASPirin 81 mg TAB PO SCH (10:10)
--- NOTE | 2024-06-01 10:12 | DVHPNRES ---
Progress Note Date Seen: Jun 01, 2024 Resident Creating Document: MARIO SANDERS RESIDENT Medical Necessity Reason Pt with a Central, PICC or Fol: Yes The following are medically ne: Central Line, Dixon Catheter Subjective Review of Systems Patient was a 74-year-old female with a past medical history of type 2 diabetes mellitus, hypertension, hyperlipidemia presented to the ED with a chief complaint of chest pain. Patient reports that with the chest pain started 2 weeks ago while she was in [place] but was intermittent, left-sided/retrosternal which was [id number] in intensity which she acknowledged following which she came to the [facility] about a week ago. On Tuesday, patient started to have worsening chest pain which was radiating to the left arm and associated with dyspnea. Last night patient's chest pain increased in intensity to 10/10 following which she came to the ED. patient denied having fever or chills, had episodes of cough but denied any phlegm. Patient did not have any sick contacts. As the patient does not have teeth she has been eating pureed diet, denies any episode of syncope or loss of consciousness or aspiration. Past medical history: Type 2 diabetes mellitus, hypertension, hyperlipidemia Past surgical history: 1 C section Social history: Patient lives with her son in [place] and is currently visiting her daughter lives in [facility], denies smoking, alcohol or drug use Home medications: Amlodipine 5 mg, valsartan 160 mg, hydrochlorothiazide 12.5 mg, dapagliflozin 10 mg, aspirin 81 mg Review of systems Patient seen and examined at the bedside Had increased work of breathing and was not able to talk in full sentences with respiratory rate 24-30 Patient reported that the chest pain had improved while she was in the hospital Denied abdominal pain, nausea, vomiting, diarrhea or constipation Patient was in metabolic acidosis, increased work of breathing following which she had to be intubated and put on mechanical ventilation Objective vital signs Vital Sign Date Time Temp Pulse Resp B/P (MAP) Pulse Ox O2 Delivery O2 Flow Rate FiO2 06/01/24 09:06 136/59 06/01/24 09:00 98.1 100 25 98 98.1 06/01/24 07:49 Simple Mask* 6 50 Total Intake and Output 05/31/24 05/31/24 06/01/24 15:00 23:00 07:00 Intake Total 342.5 ml Balance 342.5 ml medications Current Medications Medications Dose Ordered Sig/[place] Route Start Time Stop Time Status Last Admin Dose Admin Lorazepam 0.5 mg Q6HP PRN PO 06/01/24 02:30 Acetaminophen 650 mg Q6HP PRN PO 06/01/24 02:30 Ondansetron HCl 4 mg Q4HP PRN IV 06/01/24 02:30 Morphine Sulfate 2 mg Q4HPRN PRN IV 06/01/24 02:30 Nitroglycerin 0.4 mg Q5MINP PRN SL 06/01/24 02:30 Morphine Sulfate 2 mg Q30M PRN IV 06/01/24 02:30 Aspirin 81 mg DAILY PO 06/01/24 10:00 06/01/24 10:10 81 MG Atorvastatin Calcium 40 mg HS PO 06/01/24 22:00 Pantoprazole Sodium 40 mg DAILY IV 06/01/24 10:00 06/01/24 10:10 40 MG Diagnostic Test (Pha) 1 strip Q90MIN 06/01/24 09:00 06/01/24 09:06 1 STRIP Dextrose 50 ml PRN PRN IV 06/01/24 08:15 Insulin Glargine 15 units DAILY SC 06/02/24 10:00 Cancel Ipratropium [place] 0.5 mg Q4HR NEB 06/01/24 10:00 06/01/24 09:56 0.5 MG Levalbuterol HCl 0.625 mg Q4HR NEB 06/01/24 10:00 06/01/24 09:56 0.625 MG Cefepime HCl 50 ml @ 12.5 mls/hr DAILY IV 06/01/24 10:00 Doxycycline Hyclate 100 ml @ 50 mls/hr Q12H IV 06/01/24 08:30 06/01/24 09:14 50 MLS/HR Labetalol HCl 10 mg Q6HPRN PRN IV 06/01/24 08:45 Insulin Human (Reg)/Sodium Chloride 100 ml @ 0.5 mls/hr Q24H IV 06/01/24 08:45 06/01/24 08:49 6 MLS/HR Heparin Sodium/ Dextrose 250 ml @ 8 mls/hr Q24H IV 06/01/24 09:30 06/01/24 09:48 8 MLS/HR Examination Constitutional: Patient is sedated and on mechanical ventilation with RASS -3 Gen - mild conjunctival pallor, no icterus, no cyanosis, no clubbing, no LAD, no pedal edema. Skin - Patients skin is warm and dry. HEENT - normocephalic, atraumatic, dry mucous membranes. Neck - full ROM, no LAD, no JVD Pulmonary - B/L diffuse coarse inspiratory crackles, no wheezing, no stridor. cardiovascular - Regular S1,S2 heard, no added sounds, no murmurs heard. capillary refill normal <2 secs. GI - soft, nontender abdomen. no hepatospleenomegaly. Bowel sounds normoactive Neurological -on mechanical ventilation, pupils equal and reactive, gag reflex present laboratory and microbiology Laboratory Tests 06/01/24 07:50 06/01/24 02:55 Test 06/01/24 07:50 Range/Units Serum Glucose 457 *H 74-106 mg/dL Problem List/Assessment/Plan Problem List/Assessment/Plan Neurology # Acute metabolic encephalopathy likely due to uremia # S/p Mechanical ventilation - sedated with fentanyl and midazolam - RASS -4 Respiratory # Acute hypoxic respiratory failure likely d/t acute CHF # B/L acute pulmonary edema # Sepsis likely due to pneumonia with Gram +/- bacteria # ?ARDS - On mechanical ventilation with PEEP 5, Vt- 400ml, FiO2- 70%, RR 22 - one dose of lasix 60mg IV given, will monitor for urine output and aggressive diuresis to be avoided as the patient is volume depleted with underlying sepsis - IV meropenam and doxycycline for broad spectrum coverage - sputum cultures pending Cardiovascular # NSTEMI likely type I # acute congestive heart failure - EKG shows ST elevation in aVr, STd in I,II,V5,V6 - troponins uptrending - on heparin drip - atorvastatin and aspirin - cardiology consultation for possible angiographic evaluation - POCUS revealed collapsible IVC and patient given fluids - ECHO shows right ventricular strain Nephrology # Anion Gap Metabolic acidosis likely due to uremia/lactic acidosis with sepsis # severe ROSSY on CKD likely d/t sepsis causing ATN # Lactic acidosis # DKA less likely - 100Meq sodium bicarb given - ABG reviewed shows metabolic acidosis - serum bicarb and anion gap improving - insulin drip but discontinued - responds to fluid challenge with improvement in lactic acid - nephrology on board Hematology # severe acute anemia - stool occult blood negative - given one unit PRBC - monitor H&H Infectious disease # Sepsis likely d/t pneumonia - IV meropenam and doxycycline for broad spectrum coverage - sputum cultures pending Goals of care discussed with the daughter for over 27 mins. Full code Lines right femoral TLC- inserted on 06/01 intubated- 06/01 dixon cath- 06/01 critical care time spent excluding procedures: 51 mins Plan discussed with Plan discussed with: Daughter My Orders My Orders Orders - MARIO SANDERS Procedure Category Date Status Time Ipratropium Medneb PHA 06/01/24 In Process (Atrovent Medneb) 10:00 Levalbuterol Hcl PHA 06/01/24 In Process (Xopenex Medneb) 10:00 Mrsa Screen MORGAN 06/01/24 Uncollected 08:21 Cefepime 1gm/ 50ml PHA 06/01/24 In Process (Maxipime 1gm/50ml) 10:00 Doxycycline PHA 06/01/24 In Process 100mg/100ml 08:[address] 06/01/24 Taken 08:35 Ferritin LAB 06/01/24 In Process 08:35 Stool Occult Blood LAB 06/01/24 Logged 08:35 Iron Panel LAB 06/01/24 In Process 08:35 Labetalol Hcl PHA 06/01/24 In Process (Labetalol Hcl) 08:45 Potassium Chloride PHA 06/01/24 In Process (Potassium Chloride). 09:30 Chest Xray 1 View XY 06/01/24 Taken 09:26 Sodium Chloride 0.9% PHA 06/01/24 In Process 09:30 Sodium Chloride 0.9% PHA 06/01/24 Logged 10:15 MARIO SANDERS Jun 01, 2024 10:11
[2024-06-01 10:26] LABS: % Iron Saturation 6.7 % (15-50)
[2024-06-01 10:46] LABS: Chloride 100 mmol/L (98-107); Potassium 3.6 mmol/L (3.5-5.1); Sodium 138 mmol/L (136-145)
[2024-06-01 10:47] LABS: Anion Gap 22 (5-15); Calcium 9.7 mg/dL (8.7-10.4)
[2024-06-01 10:50] LABS: Carbon Dioxide 16 mmol/L (20-31)
[2024-06-01 10:52] LABS: BUN/Creatinine Ratio 13.6 (10.0-20.0)
[2024-06-01 10:56] LABS: Glucose 366 mg/dL (74-106)
[2024-06-01 10:57] LABS: Blood Urea Nitrogen 104 mg/dL (9-23)
[2024-06-01] MEDS: SODIUM CHLORIDE 0.9% 1,000 ML IV ONE (11:19)
[2024-06-01] MEDS: POTASSIUM CHLORIDE 20 MEQ, LIDOCAINE 1% (LOCAL ANESTH.) 2 ML in SODIUM CHL 0.9% 100 ML IV ONE ×2 (11:32→17:44)
--- NOTE | 2024-06-01 11:41 | DVH ---
CHEST RADIOGRAPH Indication: SOB Technique: Single frontal view of the chest was obtained Comparison: XY CHEST PORTABLE on DOS: 05/31/24 FINDINGS: Lines and Tubes: None Lungs: Worsening interstitial edema Pleura: No effusion. No pneumothorax. Cardiomediastinal contours: Unremarkable Bones: No acute osseous abnormality. IMPRESSION: Worsening interstitial edema
[2024-06-01 12:03] LABS: Basophils # (auto) 0 10 ^3/uL (0-0.2); Eosinophils # (auto) 0 10 ^3/uL (0-0.8); Lymphocytes % (auto) 4.5 % (10.0-50.0)
[2024-06-01 12:05] LABS: Basophils % (auto) 0.2 % (0.0-2.0); Hematocrit 17.3 % (36.0-46.0); Lymphocytes # (auto) 0.6 10 ^3/uL (0.4-5.4); Mean Corpuscular Hemoglobin 27.6 pg (28.0-32.0); Mean Corpuscular Hgb Conc. 30.9 g/dL (32.0-36.0); Mean Corpuscular Volume 89.3 fL (80.0-100.0); Monocytes # (auto) 0.4 10 ^3/uL (0-1.3); Neutrophils # (auto) 13.3 10 ^3/uL (1.6-8.6); Neutrophils % (auto) 92.3 % (37.0-80.0); Platelet Count (auto) 234 10^3/uL (140-450); Red Blood Cells 1.94 10^6/uL (4.0-5.20); Red Cell Distribution Width 14.2 % (11.8-14.3); White Blood Cell 14.5 10^3/uL (4.4-10.8)
[2024-06-01 12:12] LABS: Hemoglobin 5.3 g/dL (12.2-16.2)
--- NOTE | 2024-06-01 12:43 | DVH ---
Procedure: CT CHEST WITHOUT CONTRAST Reason for study/Clinical History: pneumonia, pulmonary edema Comparison Study: None available at time of dictation. Exam Date: 06/01/2024 09:37 AM TECHNIQUE: Multidetector CT of the chest was performed from the lung apices to the upper abdomen with out the use of intravenous contract. Axial, coronal and sagittal multiplanar reformats were performed . Radiation Dose Information: CT Dose: CTDI volume is 14.73 mGy. Dose-length product is 467.96 mGy*cm The dose indicators for CT are the volume Computed Tomography (CT) Dose Index (CTDIvol) and the Dose Length Product (DLP), and are measured in units of mGy and mGy-cm, respectively. These indicators are not patient dose, but values generated from the CT scanner acquisition factors. The report includes radiation exposure data for exposures received during this examination. FINDINGS: Lower neck: Normal thyroid. Lungs: Increased interstitial edema. Heart/Vascular Structures: Cardiomegaly. Lymph Nodes: No adenopathy Pleura: Small bilateral pleural effusions. Increased interstitial edema. Musculoskeletal: No acute osseous abnormality. Soft tissues: Normal. Upper abdomen: Limited portions of the upper abdomen are unremarkable. IMPRESSION: Small bilateral pleural effusions. Increased interstitial edema. Radiation optimization: All CT scans at this facility use at least one of these dose optimization flaquita hniques: automated exposure control mA and/or kV adjustment per patient size (includes targeted exam s where dose is matched to clinical indication) or iterative reconstruction.
[2024-06-01] MEDS: ROCURONIUM 10MG/ML 10ML VIAL IV ONE ×2 (13:11→13:13)
[2024-06-01] MEDS: ETOMIDATE (2MG/ML) 20ML VIAL IV ONE ×2 (13:11→13:12)
[2024-06-01] MEDS ORDERED: NOREPINEPHRINE 8 MG/250ML KIT 250 ML IV SCH (13:15)
[2024-06-01] MEDS: fentaNYL Drip 2500mCg/250mlNS 250 ML IV SCH (13:18)
[2024-06-01] MEDS: MIDAZOLAM DRIP 50 mg/50mL 50 ML IV ONE (13:21)
[2024-06-01] MEDS: fentaNYL Drip 2500mCg/250mlNS 250 ML IV ONE (13:21)
[2024-06-01] MEDS: MIDAZOLAM DRIP 50 mg/50mL 50 ML IV SCH (13:23)
[2024-06-01 13:24] LABS: Base Excess -10.1 mmol/L (-2.0-3.0)
--- NOTE | 2024-06-01 14:06 | DVH ---
CHEST RADIOGRAPH Indication: OG TUBE, ET TUBE PLACEMENT Technique: Single frontal view of the chest was obtained COMPARISON: XY CHEST XRAY 1 VIEW on DOS: 06/01/24, XY CHEST PORTABLE on DOS: 05/31/24 FINDINGS: Lines and Tubes: Endotracheal tube and enteric catheter in satisfactory position. Lungs: Multifocal airspace disease. Pleura: No effusion. No pneumothorax. Cardiomediastinal contours: Unremarkable Bones: Unremarkable IMPRESSION: Endotracheal tube and enteric catheter in satisfactory position. Severe multifocal airspace disease.
[2024-06-01 14:41] LABS: Base Excess -10.4 mmol/L (-2.0-3.0)
[2024-06-01 14:44] LABS: Potassium 3.7 mmol/L (3.5-5.1); Sodium 143 mmol/L (136-145)
[2024-06-01 14:45] LABS: Anion Gap 17 (5-15)
[2024-06-01 14:46] LABS: Calcium 8.4 mg/dL (8.7-10.4); Carbon Dioxide 18 mmol/L (20-31); Chloride 108 mmol/L (98-107)
[2024-06-01 14:47] LABS: Lactic Acid w/Reflex 3.6 mmol/L (0.4-2.0)
[2024-06-01 14:50] LABS: BUN/Creatinine Ratio 14.9 (10.0-20.0)
[2024-06-01 14:51] LABS: Glucose 193 mg/dL (74-106)
[2024-06-01 14:53] LABS: Blood Urea Nitrogen 107 mg/dL (9-23)
--- NOTE | 2024-06-01 16:02 | DVHINCON2 ---
Date of service: Jun 01, [address] Paul Reason for Consultation acute kidney injury History of Present Illness Mrs. Lucio Aviles is a 74-year-old female from [place] who is visiting family who presented for further evaluation and management of reported subacute history of chest discomfort. Current consultation requested due to significant kidney insufficiency noted on initial lab data with creatinine elevated to 7 range. Her clinical course has been notable for respiratory demise requiring intubation, mechanical ventilatory support. She is seen in the emergency department, all the history was obtained through the chart. Initial lab data notable for metabolic acidosis with elevated anion gap. Her urine ketones were unremarkable. She has been treated with intravenous fluids, insulin, and therapeutic interventions for acute coronary syndrome.Per chart documentation, outpatient medications did include angiotensin receptor thang, and a thiazide diuretic Past Medical History diabetes Allergies: Coded Allergies: No Known Drug Allergy (Verified Allergy, Unknown, 05/31/24) Current Medications Current Medications Medications (Trade) Dose Ordered Sig/[place] Route PRN Reason Start Time Stop Time Status Last Admin Heparin Sodium/ Dextrose 250 ml @ 6 mls/hr Q24H IV 06/01/24 01:45 06/01/24 09:29 DC 06/01/24 01:57 Nitroglycerin 250 ml @ 1.5 mls/hr Q24H IV 06/01/24 02:15 06/01/24 02:08 DC Lorazepam (Ativan Tablet) 0.5 mg Q6HP PRN PO ANXIETY 06/01/24 02:30 06/01/24 13:29 DC Docusate Sodium (Colace Capsule) 100 mg BIDPRN PRN PO FOR CONSTIPATION 06/01/24 02:30 06/01/24 08:29 DC Acetaminophen (Tylenol Tablet) 650 mg Q6HP PRN PO PAIN SCALE 1-3 OR TEMP>100.4 06/01/24 02:30 06/01/24 13:29 DC Ondansetron HCl (Zofran) 4 mg Q4HP PRN IV NAUSEA / VOMITING 06/01/24 02:30 06/01/24 13:29 DC Morphine Sulfate 2 mg Q4HPRN PRN IV SEVERE PAIN (7-10 PAIN SCALE) 06/01/24 02:30 06/01/24 13:29 DC Nitroglycerin (Ntrostat Sublingual) 0.4 mg Q5MINP PRN SL FOR CHEST PAIN 06/01/24 02:30 06/01/24 13:29 DC Morphine Sulfate 2 mg Q30M PRN IV FOR CHEST PAIN 06/01/24 02:30 06/01/24 13:29 DC Insulin Human (Reg)/Sodium Chloride 100 ml @ 0.5 mls/hr Q24H IV 06/01/24 02:30 06/01/24 08:30 DC 06/01/24 08:24 Diagnostic Test (Pha) (Accu-Chek Comfort Curve T) 1 strip Q90MIN 06/01/24 03:00 06/01/24 05:27 DC 06/01/24 03:03 Dextrose 50 ml PRN PRN IV BG LESS Than 70 AND CALL MD 06/01/24 02:30 06/01/24 03:04 DC Insulin Glargine (Lantus) 15 units DAILY SC 06/02/24 10:00 06/01/24 08:35 DC Aspirin 81 mg DAILY PO 06/01/24 10:00 06/01/24 10:10 Atorvastatin Calcium (Lipitor) 40 mg HS PO 06/01/24 22:00 Carvedilol (Coreg Tablet) 3.125 mg Q12HR PO 06/01/24 10:00 06/01/24 08:29 DC Furosemide (Lasix Injection) 20 mg DAILY IV 06/01/24 10:00 06/01/24 05:59 DC Pantoprazole Sodium (Protonix) 40 mg DAILY IV 06/01/24 10:00 06/01/24 10:10 Ipratropium [place] (Atrovent Medneb) 0.5 mg Q6HWA NEB 06/01/24 06:00 06/01/24 08:29 DC 06/01/24 06:56 Levalbuterol HCl (Xopenex Medneb) 0.625 mg Q6HR NEB 06/01/24 06:00 06/01/24 08:29 DC 06/01/24 06:56 Ceftriaxone Sodium 50 ml @ 100 mls/hr DAILY@09 IV 06/01/24 09:00 06/01/24 08:29 DC Diagnostic Test (Pha) (Accu-Chek Comfort Curve T) 1 strip IQ4HR 06/01/24 04:00 06/01/24 08:06 DC 06/01/24 04:25 Insulin Human Regular (InsuLIN R) IQ4HR SC 06/01/24 04:00 06/01/24 08:06 DC 06/01/24 04:31 Dextrose 50 ml UD PRN IV Blood Sugar LESS THAN 60 06/01/24 03:15 06/01/24 08:06 DC Insulin Human (Reg)/Sodium Chloride 100 ml @ 0.5 mls/hr Q24H IV 06/01/24 08:15 06/01/24 08:38 DC Diagnostic Test (Pha) (Accu-Chek Comfort Curve T) 1 strip Q90MIN 06/01/24 09:00 06/01/24 13:33 DC 06/01/24 13:32 Dextrose 50 ml PRN PRN IV BG LESS Than 70 AND CALL 06/01/24 08:15 06/01/24 13:33 DC Insulin Glargine (Lantus) 15 units DAILY SC 06/02/24 10:00 Cancel Ipratropium [place] (Atrovent Medneb) 0.5 mg Q4HR NEB 06/01/24 10:00 06/01/24 14:45 Levalbuterol HCl (Xopenex Medneb) 0.625 mg Q4HR NEB 06/01/24 10:00 06/01/24 14:45 Cefepime HCl 50 ml @ 12.5 mls/hr DAILY IV 06/01/24 10:00 06/01/24 10:22 DC Doxycycline Hyclate 100 ml @ 50 mls/hr Q12H IV 06/01/24 08:30 06/01/24 09:14 Labetalol HCl (Labetalol HCl) 10 mg Q6HPRN PRN IV SBP>160 06/01/24 08:45 06/01/24 13:20 DC Insulin Human (Reg)/Sodium Chloride 100 ml @ 0.5 mls/hr Q24H IV 06/01/24 08:45 06/01/24 15:27 DC 06/01/24 08:49 Heparin Sodium/ Dextrose 250 ml @ 8 mls/hr Q24H IV 06/01/24 09:30 06/01/24 09:48 Meropenem 50 ml @ 17 mls/hr DAILY IV 06/02/24 10:00 Norepinephrine Bitartrate 250 ml @ 3.75 mls/hr Q24H IV 06/01/24 13:15 Midazolam HCl 50 ml @ 1 mls/hr Q24H IV 06/01/24 13:15 06/01/24 13:23 Fentanyl Citrate 250 ml @ 2.5 mls/hr Q24H IV 06/01/24 13:15 06/01/24 13:18 Diagnostic Test (Pha) (Accu-Chek Comfort Curve T) 1 strip IQ4HR 06/01/24 16:00 Insulin Human Regular (InsuLIN R) IQ4HR SC 06/01/24 16:00 Dextrose 50 ml UD PRN IV Blood Sugar LESS THAN 60 06/01/24 13:30 Review of Systems unable to be obtained due to patient's critical status. H&P Exam Vital Signs/I&O Vital Sign Date Time Temp Pulse Resp B/P (MAP) Pulse Ox O2 Delivery O2 Flow Rate FiO2 06/01/24 15:44 86 23 111/55 (73) 95 80 06/01/24 15:00 94.5 94.5 06/01/24 07:49 Simple Mask* 6 Intake and Output 05/31/24 06/01/24 19:00 07:00 Intake Total 342.5 ml Balance 342.5 ml Intake IV Total 342.5 ml Physical Exam gen: nad, elderly female, intubated heent: + ett lungs: coarse bs cvs: no rub abd: soft ext: no significant edema skin: no petechiae neuro: sedated Labs/Diagnostic Data Labs/Diagnostic Data Laboratory Tests Test 06/01/24 15:01 06/01/24 14:33 06/01/24 14:00 06/01/24 13:32 Range/Units POC Glucose 157 H 186 H 70-106 mg/dl Blood Gas Specimen Type Arterial Blood Gas Sample Site Right radial Blood Gas Patient Temperature 37.0 Arterial Blood Date Drawn [id number] Arterial Blood pH 7.122 *L 7.350-7.450 Arterial Blood Partial Pressure CO2 57.5 H 32.0-45.0 mmHg Arterial Blood Partial Pressure O2 90.5 83.0-108.0 mmHg Arterial Blood HCO3 18.4 L 21.0-28.0 mmol/L Arterial Blood Oxygen Saturation 93.6 L 94.0-98.0 % Arterial Blood Base Excess -10.4 L -2.0-3.0 mmol/L Arterial Blood Oxyhemoglobin 92.6 L 94.0-98.0 % Arterial Blood Carboxyhemoglobin 0.3 L 0.5-1.5 % Arterial Blood Methemoglobin 0.8 0.0-1.5 % Anil Test Modified Blood Gas Total Hemoglobin 7.70 L 12.0-16.0 g/dL Blood Gas Set Respiration Rate 22.0 Blood Gas Modality Vent - ac FiO2 % 100.0 Blood Gas Tidal Volume 400.0 Blood Gas PEEP or CPAP 5.0 Blood Gas Critical Value Read Back Yes Blood Gas Notified Whom S franklin boucher Blood Gas Notified Time [id number] Blood Gas Notified By Platform Builder melissa chilel Sodium Level 143 # 136-145 mmol/L Potassium Level 3.7 3.5-5.1 mmol/L Chloride Level 108 H 98-107 mmol/L Carbon Dioxide Level 18 L 20-31 mmol/L Anion Gap 17 H 5-15 Blood Urea Nitrogen 107 *H 9-23 mg/dL Creatinine 7.18 H 0.550-1.02 mg/dL Glomerular Filtration Rate Calc 6 >90 mL/min BUN/Creatinine Ratio 14.9 10.0-20.0 Serum Glucose 193 H 74-106 mg/dL Lactic Acid Level 3.6 *H 0.4-2.0 mmol/L Calcium Level 8.4 L 8.7-10.4 mg/dL Troponin I High Sensitivity 6715 *H </=34 ng/L Test 06/01/24 12:35 06/01/24 12:06 06/01/24 12:00 06/01/24 11:54 Range/Units Blood Gas Specimen Type Arterial Blood Gas Sample Site Left radial Blood Gas Patient Temperature 37.0 Arterial Blood Date Drawn [id number] Arterial Blood pH 7.310 L 7.350-7.450 Arterial Blood Partial Pressure CO2 30.9 L 32.0-45.0 mmHg Arterial Blood Partial Pressure O2 61.0 L 83.0-108.0 mmHg Arterial Blood HCO3 15.2 L 21.0-28.0 mmol/L Arterial Blood Oxygen Saturation 90.4 L 94.0-98.0 % Arterial Blood Base Excess -10.1 L -2.0-3.0 mmol/L Arterial Blood Oxyhemoglobin 89.3 L 94.0-98.0 % Arterial Blood Carboxyhemoglobin 0.5 0.5-1.5 % Arterial Blood Methemoglobin 0.7 0.0-1.5 % Anil Test Yes Blood Gas Total Hemoglobin 7.40 L 12.0-16.0 g/dL Blood Gas Liter Flow 10.00 Blood Gas Modality Mask - simple Blood Gas Spontaneous Rate 20 FiO2 % 70.0 POC Glucose 249 H 70-106 mg/dl Stool Occult Blood Negative Negative Stool Occult Blood Sample #3 Negative White Blood Count 14.5 #H 4.4-10.8 10^3/uL Red Blood Count 1.94 L 4.0-5.20 10^6/uL Hemoglobin 5.3 #*L 12.2-16.2 g/dL Hematocrit 17.3 #L 36.0-46.0 % Mean Corpuscular Volume 89.3 80.0-100.0 fL Mean Corpuscular Hemoglobin 27.6 L 28.0-32.0 pg Mean Corpuscular Hemoglobin Concent 30.9 L 32.0-36.0 g/dL Red Cell Distribution Width 14.2 11.8-14.3 % Platelet Count 234 140-450 10^3/uL Mean Platelet Volume 9.2 6.9-10.8 fL Neutrophils (%) (Auto) 92.3 H 37.0-80.0 % Lymphocytes (%) (Auto) 4.5 L 10.0-50.0 % Monocytes (%) (Auto) 3.0 0.0-12.0 % Eosinophils (%) (Auto) 0.0 0.0-7.0 % Basophils (%) (Auto) 0.2 0.0-2.0 % Neutrophils # (Auto) 13.3 H 1.6-8.6 10 ^3/uL Lymphocytes # (Auto) 0.6 0.4-5.4 10 ^3/uL Monocytes # (Auto) 0.4 0-1.3 10 ^3/uL Eosinophils # (Auto) 0 0-0.8 10 ^3/uL Basophils # (Auto) 0 0-0.2 10 ^3/uL Nucleated Red Blood Cells 0.0 % Troponin I High Sensitivity 3477 *H </=34 ng/L Test 06/01/24 10:45 06/01/24 10:17 06/01/24 09:03 06/01/24 08:25 Range/Units POC Glucose 310 H 394 H 70-106 mg/dl Sodium Level 138 136-145 mmol/L Potassium Level 3.6 3.5-5.1 mmol/L Chloride Level 100 98-107 mmol/L Carbon Dioxide Level 16 L 20-31 mmol/L Anion Gap 22 H 5-15 Blood Urea Nitrogen 104 *H 9-23 mg/dL Creatinine 7.66 H 0.550-1.02 mg/dL Glomerular Filtration Rate Calc 5 >90 mL/min BUN/Creatinine Ratio 13.6 10.0-20.0 Serum Glucose 366 H 74-106 mg/dL Lactic Acid Level 6.8 *H 7.0 *H 0.4-2.0 mmol/L Calcium Level 9.7 8.7-10.4 mg/dL Troponin I High Sensitivity 3845 *H 3306 *H </=34 ng/L Serum Osmolality 363 H 278-298 mOsm/kg Iron Level 16 L 50-170 ug/dL Total Iron Binding Capacity 239 L 250-425 ug/dL Percent Iron Saturation 6.7 L 15-50 % Ferritin 111.5 10-291 ng/mL Test 06/01/24 07:56 06/01/24 07:50 06/01/24 07:05 06/01/24 05:07 Range/Units POC Glucose 421 *H 70-106 mg/dl Prothrombin Time 10.3 9.3-11.8 sec Prothrombin Time INR 0.97 0.9-1.15 Activated Partial Thromboplast Time 36.5 H 24.5-34.5 SEC Sodium Level 135 L 136-145 mmol/L Potassium Level 3.9 # 3.5-5.1 mmol/L Chloride Level 102 98-107 mmol/L Carbon Dioxide Level 11 L 20-31 mmol/L Anion Gap 22 H 5-15 Blood Urea Nitrogen 106 *H 9-23 mg/dL Creatinine 7.73 H 0.550-1.02 mg/dL Glomerular Filtration Rate Calc 5 >90 mL/min BUN/Creatinine Ratio 13.7 10.0-20.0 Serum Glucose 457 *H 74-106 mg/dL Calcium Level 9.8 8.7-10.4 mg/dL Beta-Hydroxybutyric Acid 0.137 < 0.4 mmol/L Blood Gas Specimen Type Arterial Blood Gas Sample Site Right radial Blood Gas Patient Temperature 37.0 Arterial Blood Date Drawn [id number] Arterial Blood pH 7.217 *L 7.350-7.450 Arterial Blood Partial Pressure CO2 24.1 L 32.0-45.0 mmHg Arterial Blood Partial Pressure O2 61.6 L 83.0-108.0 mmHg Arterial Blood HCO3 9.6 L 21.0-28.0 mmol/L Arterial Blood Oxygen Saturation 88.0 L 94.0-98.0 % Arterial Blood Base Excess -16.6 L -2.0-3.0 mmol/L Arterial Blood Oxyhemoglobin 87.5 L 94.0-98.0 % Arterial Blood Carboxyhemoglobin 0.2 L 0.5-1.5 % Arterial Blood Methemoglobin 0.4 0.0-1.5 % Anil Test Modified Blood Gas Total Hemoglobin 8.40 L 12.0-16.0 g/dL Blood Gas Liter Flow 5.00 Blood Gas Modality Nasal cannula Blood Gas Spontaneous Rate 28 FiO2 % 40.0 Blood Gas Critical Value Read Back Yes Blood Gas Notified Whom piotr Gardner Blood Gas Notified Time [id number] Blood Gas Notified By Platform Builder jeffrey cruz Urine Color Colorless Yellow Urine Clarity Clear Clear Urine pH 6.0 5.0-9.0 Urine Specific Waves 1.012 1.001-1.035 Urine Protein 2+ H Negative Urine Ketones Negative Negative Urine Blood 1+ H Negative /uL Urine Nitrite Negative Negative Urine Bilirubin Negative Negative Urine Urobilinogen Normal Negative mg/dL Urine Leukocyte Esterase Negative Negative /uL Urine RBC 2 0 - 4 /hpf Urine Microscopic WBC 17 H 0-5 /HPF Urine Squamous Epithelial Cells Few <5 /hpf Urine Bacteria None seen None Seen /hpf Urine Osmolality 382 mOsm/kg Urine Creatinine 44.36 30.0-125.0 mg/dL Urine Protein/Creatinine Ratio 8.53 Urine Sodium 49 40-220 mmol/L Urine Glucose 4+ H Normal mg/dL Urine Total Protein 378.6 H 1-14 mg/dL Urine Opiates Screen Neg NEGATIVE Urine Fentanyl Screen Neg NEGATIVE Urine Barbiturates Screen Neg NEGATIVE Urine Phencyclidine Screen Neg NEGATIVE Urine Amphetamines Screen Neg NEGATIVE Urine Benzodiazepines Screen Neg NEGATIVE Urine Cocaine Screen Neg NEGATIVE Urine Cannabinoids Screen Neg NEGATIVE Test 06/01/24 05:05 06/01/24 04:24 06/01/24 04:02 06/01/24 02:55 Range/Units Influenza Type A Antigen Negative Negative Influenza Type B Antigen Negative Negative SARS-CoV-2 Antigen (Rapid) Negative NEGATIVE POC Glucose 395 H 404 *H 70-106 mg/dl White Blood Count 23.5 H 4.4-10.8 10^3/uL Red Blood Count 2.90 L 4.0-5.20 10^6/uL Hemoglobin 7.8 L 12.2-16.2 g/dL Hematocrit 25.4 L 36.0-46.0 % Mean Corpuscular Volume 87.6 # 80.0-100.0 fL Mean Corpuscular Hemoglobin 26.8 L 28.0-32.0 pg Mean Corpuscular Hemoglobin Concent 30.6 L 32.0-36.0 g/dL Red Cell Distribution Width 14.4 H 11.8-14.3 % Platelet Count 354 140-450 10^3/uL Mean Platelet Volume 9.3 6.9-10.8 fL Neutrophils (%) (Auto) 94.0 H 37.0-80.0 % Lymphocytes (%) (Auto) 2.5 L 10.0-50.0 % Monocytes (%) (Auto) 3.1 0.0-12.0 % Eosinophils (%) (Auto) 0.0 0.0-7.0 % Basophils (%) (Auto) 0.4 0.0-2.0 % Neutrophils # (Auto) 22.1 H 1.6-8.6 10 ^3/uL Lymphocytes # (Auto) 0.6 0.4-5.4 10 ^3/uL Monocytes # (Auto) 0.7 0-1.3 10 ^3/uL Eosinophils # (Auto) 0 0-0.8 10 ^3/uL Basophils # (Auto) 0.1 0-0.2 10 ^3/uL Nucleated Red Blood Cells 0.0 % Sodium Level 131 L 136-145 mmol/L Potassium Level 6.3 *H 3.5-5.1 mmol/L Chloride Level 102 98-107 mmol/L Carbon Dioxide Level 12 L 20-31 mmol/L Anion Gap 17 H 5-15 Blood Urea Nitrogen 103 *H 9-23 mg/dL Creatinine 7.63 H 0.550-1.02 mg/dL Glomerular Filtration Rate Calc 5 >90 mL/min BUN/Creatinine Ratio 13.5 10.0-20.0 Serum Glucose 419 *H 74-106 mg/dL Hemoglobin A1c 5.3 <5.7 % A1C Calcium Level 9.1 8.7-10.4 mg/dL Phosphorus Level 6.0 H 2.4-5.1 mg/dL Magnesium Level 2.5 1.6-2.6 mg/dL Total Bilirubin 0.3 0.2-1.0 mg/dL Aspartate Amino Transferase (AST) 39 13-40 U/L Alanine Aminotransferase (ALT) 14 7-40 U/L Alkaline Phosphatase 99 46-116 U/L Troponin I High Sensitivity 2762 *H </=34 ng/L Total Protein 7.8 5.7-8.2 g/dL Albumin 4.4 3.2-4.8 g/dL Triglycerides Level 147 < 150 mg/dL Cholesterol Level 227 H < 200 mg/dL LDL Cholesterol 165 H < 100 mg/dL HDL Cholesterol 37 L 40-59 mg/dL Vitamin B12 Level 390 211-911 pg/mL Vitamin D 25-Hydroxy 10.9 L 30.0-100 ng/mL Thyroid Stimulating Hormone (TSH) 0.71 0.55-4.78 uIU/mL Test 06/01/24 02:53 06/01/24 01:02 06/01/24 00:55 06/01/24 00:45 Range/Units POC Glucose 371 H 70-106 mg/dl Blood Gas Specimen Type Arterial Blood Gas Sample Site Right radial Blood Gas Patient Temperature 37.0 Arterial Blood Date Drawn [id number] Arterial Blood pH 7.274 L 7.350-7.450 Arterial Blood Partial Pressure CO2 31.2 L 32.0-45.0 mmHg Arterial Blood Partial Pressure O2 201.5 H 83.0-108.0 mmHg Arterial Blood HCO3 14.1 L 21.0-28.0 mmol/L Arterial Blood Oxygen Saturation 98.9 H 94.0-98.0 % Arterial Blood Base Excess -11.6 L -2.0-3.0 mmol/L Arterial Blood Oxyhemoglobin 98.3 H 94.0-98.0 % Arterial Blood Carboxyhemoglobin 0.3 L 0.5-1.5 % Arterial Blood Methemoglobin 0.3 0.0-1.5 % Anil Test Yes Blood Gas Total Hemoglobin 9.20 L 12.0-16.0 g/dL Blood Gas Modality Mask - bipap FiO2 % 80.0 Blood Gas EPAP 5 Blood Gas IPAP 12 Lactic Acid Level 1.8 0.4-2.0 mmol/L Troponin I High Sensitivity 2372 *H </=34 ng/L Test 05/31/24 23:47 05/31/24 22:36 Range/Units Troponin I High Sensitivity 1354 *H 276 *H </=34 ng/L White Blood Count 21.0 H 4.4-10.8 10^3/uL Red Blood Count 3.29 L 4.0-5.20 10^6/uL Hemoglobin 9.1 L 12.2-16.2 g/dL Hematocrit 27.7 L 36.0-46.0 % Mean Corpuscular Volume 84.1 80.0-100.0 fL Mean Corpuscular Hemoglobin 27.6 L 28.0-32.0 pg Mean Corpuscular Hemoglobin Concent 32.8 32.0-36.0 g/dL Red Cell Distribution Width 14.4 H 11.8-14.3 % Platelet Count 397 140-450 10^3/uL Mean Platelet Volume 9.3 6.9-10.8 fL Neutrophils (%) (Auto) 81.4 H 37.0-80.0 % Lymphocytes (%) (Auto) 12.9 10.0-50.0 % Monocytes (%) (Auto) 4.7 0.0-12.0 % Eosinophils (%) (Auto) 0.6 0.0-7.0 % Basophils (%) (Auto) 0.4 0.0-2.0 % Neutrophils # (Auto) 17.1 H 1.6-8.6 10 ^3/uL Lymphocytes # (Auto) 2.7 0.4-5.4 10 ^3/uL Monocytes # (Auto) 1.0 0-1.3 10 ^3/uL Eosinophils # (Auto) 0.1 0-0.8 10 ^3/uL Basophils # (Auto) 0.1 0-0.2 10 ^3/uL Nucleated Red Blood Cells 0.0 % Prothrombin Time 10.0 9.3-11.8 sec Prothrombin Time INR 0.94 0.9-1.15 Activated Partial Thromboplast Time 30.1 24.5-34.5 SEC Sodium Level 133 L 136-145 mmol/L Potassium Level 5.4 H 3.5-5.1 mmol/L Chloride Level 102 98-107 mmol/L Carbon Dioxide Level 15 L 20-31 mmol/L Anion Gap 16 H 5-15 Blood Urea Nitrogen 101 *H 9-23 mg/dL Creatinine 7.38 H 0.550-1.02 mg/dL Glomerular Filtration Rate Calc 5 >90 mL/min BUN/Creatinine Ratio 13.7 10.0-20.0 Serum Glucose 349 H 74-106 mg/dL Calcium Level 9.6 8.7-10.4 mg/dL B-Type Natriuretic Peptide 604.23 0-100 pg/mL Microbiology Date/Time Source Procedure Growth Status 06/01/24 06:11 Nose MRSA Screen - Final Complete Assessment IMP: 1) hemodynamically mediated acute kidney injury, possible ischemic ATN 2) NSTEMI 3) acute anemia 4) acute hypoxemic respiratory failure 5) DM II 6) AGMA - possible uremic acidosis REC: - Agree with current plan of care, supportive measures - will continue to evaluate daily for KRT - Will repeat urine studies, maintain strict I's and O's, And monitor efficacy of loop diuretic tx. - General recommendations to avoid NSAIDs, intravenous contrast studies if able. - Should left heart catheterization be required for diagnostic and/or therapeutic purpose, in current situation, this intervention would be considered lifesaving and would pursue Cardiac catheterization as per discretion of cardiology. - will continue to follow closely with you. Thank you for the consultation. Plan discussed with: Other COOPER LOPEZ MD Jun 01, 2024 16:02
[2024-06-01] MEDS: NOREPINEPHRINE BITARTRATE 16 MG in SODIUM CHL 0.9% 234 ML IV SCH (16:30)
[2024-06-01 16:39] LABS: INR 1.01 (0.9-1.15); Prothrombin Time 10.7 sec (9.3-11.8)
--- NOTE | 2024-06-01 16:51 | DVHNC2 ---
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) Indication: Hypotension Room prepared for procedure: Yes Superintendent Stevedoring performed hand hygien: Yes Maximal sterile barrier precau: Mask/Eye shield, Sterile gown, Cap, Sterlie gloves, Large sterlie drape Skin Preparation: Providine iodine Skin preparation completely dr: Yes Insertion site: Right, Femoral Central line catheter type: [id number] dialysis Number of lumens: 3 Informed consent obtained: Yes Risks/benefits/alt described: Yes Date of Service: Jun 01, 2024 Billing Provider: DEIRDRE CASTANO MD Common Visit Codes: PROCEDURE ONLY MARIO SANDERS RESIDENT Jun 01, 2024 16:51
--- NOTE | 2024-06-01 16:54 | DVHNC2 ---
Intubation Indication: Respiratory Insufficiency Prep: Preoxygenation Pretreated with: Sedation (etomidate) Medicated with: Other (rocuronium) Intubation Approach: Orotracheal Intubation size: cm (8) Informed consent obtained: Yes Risks/benefits/alt described: Yes Notes ET 8.0 SECURED AT 22CM @ THE LIP + ETCO2 COLOR CHANGE TO YELLOW + CONDENSATION IN THE ET TUBE + BILATERAL EQUAL CHEST RISE AND FALL + BILATERAL ANTERIOR AND LATERAL LOWER LUNG SOUND Date of Service: Jun 01, 2024 Billing Provider: DEIRDRE CASTANO MD Common Visit Codes: PROCEDURE ONLY MARIO SANDERS RESIDENT Jun 01, 2024 16:54
[2024-06-01 19:28] LABS: Base Excess -10.3 mmol/L (-2.0-3.0)
[2024-06-01 19:42] LABS: Chloride 107 mmol/L (98-107); Potassium 4.8 mmol/L (3.5-5.1); Sodium 142 mmol/L (136-145)
[2024-06-01 19:43] LABS: Anion Gap 17 (5-15)
[2024-06-01 19:44] LABS: Calcium 9.1 mg/dL (8.7-10.4)
[2024-06-01 19:49] LABS: BUN/Creatinine Ratio 13.8 (10.0-20.0)
[2024-06-01 19:53] LABS: Carbon Dioxide 18 mmol/L (20-31); Glucose 208 mg/dL (74-106)
[2024-06-01 19:55] LABS: Blood Urea Nitrogen 103 mg/dL (9-23)
[2024-06-01 21:39] LABS: Hematocrit 25.6 % (36.0-46.0); Hemoglobin 8.5 g/dL (12.2-16.2)
[2024-06-01] MEDS: ATORVASTATIN 20 MG TAB PO SCH (22:00)
[2024-06-01 22:28] LABS: Potassium 4.5 mmol/L (3.5-5.1); Sodium 143 mmol/L (136-145)
[2024-06-01 22:29] LABS: Anion Gap 17 (5-15); Calcium 8.9 mg/dL (8.7-10.4)
[2024-06-01 22:34] LABS: BUN/Creatinine Ratio 13.8 (10.0-20.0)
[2024-06-01 22:37] LABS: Carbon Dioxide 18 mmol/L (20-31); Chloride 108 mmol/L (98-107); Glucose 212 mg/dL (74-106)
[2024-06-01 22:40] LABS: Blood Urea Nitrogen 104 mg/dL (9-23)
[2024-06-01 22:58] LABS: INR 1.02 (0.9-1.15); Prothrombin Time 10.8 sec (9.3-11.8)
[2024-06-01 23:03] LABS: Partial Thromboplastin Time 90.1 SEC (24.5-34.5)
--- NOTE | 2024-06-01 23:48 | DVHINCON2 ---
Date Seen: Jun 01, 2024 Referring Physician MD Kandy Reason for Consultation NSTEMI, chest pain History of Present Illness This is a Croatian-speaking 74-year-old female with a past medical history of hypertension, dyslipidemia, and type 2 diabetes mellitus who presents to the emergency room with a complaint of chest pain. The patient reports that she started experiencing chest pain on 05/28/24. She reports that the pain was intermittent and went away so she did not think much of it. She reports having intermittent chest pain everyday until emergency room arrival. She describes the pain as unprovoked, intermittent, pressure-like in nature, substernal with radiation towards her left arm. Associated symptoms include shortness of breath. Initial twelve lead electrocardiogram reveals sinus tachycardia with global ST segment changes. Initial troponin level of 276ng/L with significant up trend and current peak level at 3306ng/L. Chest x-ray showed NAD. Of note, the patient came to the emergency room with blood pressures reaching as high as 209/94. The patient is not from this area and states that she is visiting her daughter from [place]. Patient was admitted to the hospital. I am asked to consult on this patient. Allergies: Coded Allergies: No Known Drug Allergy (Verified Allergy, Unknown, 05/31/24) Current Medications Current Medications Medications (Trade) Dose Ordered Sig/[place] Route PRN Reason Start Time Stop Time Status Last Admin Heparin Sodium/ Dextrose 250 ml @ 6 mls/hr Q24H IV 06/01/24 01:45 06/01/24 09:29 DC 06/01/24 01:57 Nitroglycerin 250 ml @ 1.5 mls/hr Q24H IV 06/01/24 02:15 06/01/24 02:08 DC Lorazepam (Ativan Tablet) 0.5 mg Q6HP PRN PO ANXIETY 06/01/24 02:30 06/01/24 13:29 DC Docusate Sodium (Colace Capsule) 100 mg BIDPRN PRN PO FOR CONSTIPATION 06/01/24 02:30 06/01/24 08:29 DC Acetaminophen (Tylenol Tablet) 650 mg Q6HP PRN PO PAIN SCALE 1-3 OR TEMP>100.4 06/01/24 02:30 06/01/24 13:29 DC Ondansetron HCl (Zofran) 4 mg Q4HP PRN IV NAUSEA / VOMITING 06/01/24 02:30 06/01/24 13:29 DC Morphine Sulfate 2 mg Q4HPRN PRN IV SEVERE PAIN (7-10 PAIN SCALE) 06/01/24 02:30 06/01/24 13:29 DC Nitroglycerin (Ntrostat Sublingual) 0.4 mg Q5MINP PRN SL FOR CHEST PAIN 06/01/24 02:30 06/01/24 13:29 DC Morphine Sulfate 2 mg Q30M PRN IV FOR CHEST PAIN 06/01/24 02:30 06/01/24 13:29 DC Insulin Human (Reg)/Sodium Chloride 100 ml @ 0.5 mls/hr Q24H IV 06/01/24 02:30 06/01/24 08:30 DC 06/01/24 08:24 Diagnostic Test (Pha) (Accu-Chek Comfort Curve T) 1 strip Q90MIN 06/01/24 03:00 06/01/24 05:27 DC 06/01/24 03:03 Dextrose 50 ml PRN PRN IV BG LESS Than 70 AND CALL MD 06/01/24 02:30 06/01/24 03:04 DC Insulin Glargine (Lantus) 15 units DAILY SC 06/02/24 10:00 06/01/24 08:35 DC Aspirin 81 mg DAILY PO 06/01/24 10:00 06/01/24 10:10 Atorvastatin Calcium (Lipitor) 40 mg HS PO 06/01/24 22:00 Carvedilol (Coreg Tablet) 3.125 mg Q12HR PO 06/01/24 10:00 06/01/24 08:29 DC Furosemide (Lasix Injection) 20 mg DAILY IV 06/01/24 10:00 06/01/24 05:59 DC Pantoprazole Sodium (Protonix) 40 mg DAILY IV 06/01/24 10:00 06/01/24 10:10 Ipratropium [place] (Atrovent Medneb) 0.5 mg Q6HWA NEB 06/01/24 06:00 06/01/24 08:29 DC 06/01/24 06:56 Levalbuterol HCl (Xopenex Medneb) 0.625 mg Q6HR NEB 06/01/24 06:00 06/01/24 08:29 DC 06/01/24 06:56 Ceftriaxone Sodium 50 ml @ 100 mls/hr DAILY@09 IV 06/01/24 09:00 06/01/24 08:29 DC Diagnostic Test (Pha) (Accu-Chek Comfort Curve T) 1 strip IQ4HR 06/01/24 04:00 06/01/24 08:06 DC 06/01/24 04:25 Insulin Human Regular (InsuLIN R) IQ4HR SC 06/01/24 04:00 06/01/24 08:06 DC 06/01/24 04:31 Dextrose 50 ml UD PRN IV Blood Sugar LESS THAN 60 06/01/24 03:15 06/01/24 08:06 DC Insulin Human (Reg)/Sodium Chloride 100 ml @ 0.5 mls/hr Q24H IV 06/01/24 08:15 06/01/24 08:38 DC Diagnostic Test (Pha) (Accu-Chek Comfort Curve T) 1 strip Q90MIN 06/01/24 09:00 06/01/24 13:33 DC 06/01/24 13:32 Dextrose 50 ml PRN PRN IV BG LESS Than 70 AND CALL MD 06/01/24 08:15 06/01/24 13:33 DC Insulin Glargine (Lantus) 15 units DAILY SC 06/02/24 10:00 Cancel Ipratropium [place] (Atrovent Medneb) 0.5 mg Q4HR NEB 06/01/24 10:00 06/01/24 18:51 Levalbuterol HCl (Xopenex Medneb) 0.625 mg Q4HR NEB 06/01/24 10:00 06/01/24 18:51 Cefepime HCl 50 ml @ 12.5 mls/hr DAILY IV 06/01/24 10:00 06/01/24 10:22 DC Doxycycline Hyclate 100 ml @ 50 mls/hr Q12H IV 06/01/24 08:30 06/01/24 09:14 Labetalol HCl (Labetalol HCl) 10 mg Q6HPRN PRN IV SBP>160 06/01/24 08:45 06/01/24 13:20 DC Insulin Human (Reg)/Sodium Chloride 100 ml @ 0.5 mls/hr Q24H IV 06/01/24 08:45 06/01/24 15:27 DC 06/01/24 08:49 Heparin Sodium/ Dextrose 250 ml @ 8 mls/hr Q24H IV 06/01/24 09:30 06/01/24 09:48 Meropenem 50 ml @ 17 mls/hr DAILY IV 06/02/24 10:00 Norepinephrine Bitartrate 250 ml @ 3.75 mls/hr Q24H IV 06/01/24 13:15 06/01/24 17:28 DC Midazolam HCl 50 ml @ 1 mls/hr Q24H IV 06/01/24 13:15 06/01/24 13:23 Fentanyl Citrate 250 ml @ 2.5 mls/hr Q24H IV 06/01/24 13:15 06/01/24 13:18 Diagnostic Test (Pha) (Accu-Chek Comfort Curve T) 1 strip IQ4HR 06/01/24 16:00 06/01/24 20:29 Insulin Human Regular (InsuLIN R) IQ4HR SC 06/01/24 16:00 06/01/24 20:29 Dextrose 50 ml UD PRN IV Blood Sugar LESS THAN 60 06/01/24 13:30 Norepinephrine Bitartrate 16 mg/ Sodium Chloride 250 ml @ 1.875 mls/ hr Q24H IV 06/01/24 16:30 Review of Systems Constitutional: No symptom reported Ears, Nose, & Throat: No symptom reported Eyes: No symptom reported Neurological: No symptoms reported Pulmonary/Respiratory: Shortness of breath Cardiovascular: Chest pain Gastrointestinal: No symptom reported Genitourinary: No symptom reported Musculoskeletal: No symptom reported Skin: No symptom reported Psychiatric: No symptom reported Endocrine: No symptom reported Hematologic/Lymphatic: No symptom reported Vital Signs Vital Signs Date Time Temp Pulse Resp B/P (MAP) Pulse Ox O2 Delivery O2 Flow Rate FiO2 06/01/24 20:00 103 06/01/24 19:32 28 146/79 (101) 100 60 06/01/24 19:00 95.0 95.0 06/01/24 07:49 Simple Mask* 6 Physical Exam GENERAL: Alert and oriented x 3. No acute distress. EYES: PERRL, EOMI. Anicteric. HENT: Moist mucous membranes. LUNGS: Coarse breath sounds. CARDIOVASCULAR: Regular rate and rhythm. ABDOMEN: Soft, nontender and nondistended. EXTREMITIES: No edema. NEUROLOGIC: No focal neurological deficits. SKIN: Warm, dry. Labs/Diagnostic Data Labs Test 06/01/24 22:05 06/01/24 21:30 06/01/24 19:39 06/01/24 19:23 Range/Units Hemoglobin 8.5 #L 12.2-16.2 g/dL Hematocrit 25.6 #L 36.0-46.0 % Lactic Acid Level 1.7 0.4-2.0 mmol/L POC Glucose 193 H 70-106 mg/dl Blood Gas Specimen Type Arterial Blood Gas Sample Site Right radial Blood Gas Patient Temperature 37.0 Arterial Blood Date Drawn [id number] Arterial Blood pH 7.248 *L 7.350-7.450 Arterial Blood Partial Pressure CO2 37.9 32.0-45.0 mmHg Arterial Blood Partial Pressure O2 84.8 83.0-108.0 mmHg Arterial Blood HCO3 16.2 L 21.0-28.0 mmol/L Arterial Blood Oxygen Saturation 95.6 94.0-98.0 % Arterial Blood Base Excess -10.3 L -2.0-3.0 mmol/L Arterial Blood Oxyhemoglobin 94.7 94.0-98.0 % Arterial Blood Carboxyhemoglobin 0.3 L 0.5-1.5 % Arterial Blood Methemoglobin 0.6 0.0-1.5 % Anil Test Modified Blood Gas Total Hemoglobin 9.00 L 12.0-16.0 g/dL Blood Gas Set Respiration Rate 26.0 Blood Gas Modality Vent - ac FiO2 % 70.0 Blood Gas Tidal Volume 400.0 Blood Gas PEEP or CPAP 5.0 Blood Gas Critical Value Read Back Yes Blood Gas Notified Whom Md shorej Blood Gas Notified Time [id number] Blood Gas Notified By Cul[employer] Teacher edis rosa elena Test 06/01/24 14:00 06/01/24 12:35 06/01/24 12:00 06/01/24 11:54 Range/Units Troponin I High Sensitivity 6715 *H </=34 ng/L Blood Gas Liter Flow 10.00 Blood Gas Spontaneous Rate 20 Stool Occult Blood Negative Negative Stool Occult Blood Sample #3 Negative White Blood Count 14.5 #H 4.4-10.8 10^3/uL Red Blood Count 1.94 L 4.0-5.20 10^6/uL Mean Corpuscular Volume 89.3 80.0-100.0 fL Mean Corpuscular Hemoglobin 27.6 L 28.0-32.0 pg Mean Corpuscular Hemoglobin Concent 30.9 L 32.0-36.0 g/dL Red Cell Distribution Width 14.2 11.8-14.3 % Platelet Count 234 140-450 10^3/uL Mean Platelet Volume 9.2 6.9-10.8 fL Neutrophils (%) (Auto) 92.3 H 37.0-80.0 % Lymphocytes (%) (Auto) 4.5 L 10.0-50.0 % Monocytes (%) (Auto) 3.0 0.0-12.0 % Eosinophils (%) (Auto) 0.0 0.0-7.0 % Basophils (%) (Auto) 0.2 0.0-2.0 % Neutrophils # (Auto) 13.3 H 1.6-8.6 10 ^3/uL Lymphocytes # (Auto) 0.6 0.4-5.4 10 ^3/uL Monocytes # (Auto) 0.4 0-1.3 10 ^3/uL Eosinophils # (Auto) 0 0-0.8 10 ^3/uL Basophils # (Auto) 0 0-0.2 10 ^3/uL Nucleated Red Blood Cells 0.0 % Test 06/01/24 08:25 06/01/24 07:50 06/01/24 05:07 06/01/24 05:05 Range/Units Serum Osmolality 363 H 278-298 mOsm/kg Iron Level 16 L 50-170 ug/dL Total Iron Binding Capacity 239 L 250-425 ug/dL Percent Iron Saturation 6.7 L 15-50 % Ferritin 111.5 10-291 ng/mL Beta-Hydroxybutyric Acid 0.137 < 0.4 mmol/L Urine Color Colorless Yellow Urine Clarity Clear Clear Urine pH 6.0 5.0-9.0 Urine Specific [place] 1.012 1.001-1.035 Urine Protein 2+ H Negative Urine Ketones Negative Negative Urine Blood 1+ H Negative /uL Urine Nitrite Negative Negative Urine Bilirubin Negative Negative Urine Urobilinogen Normal Negative mg/dL Urine Leukocyte Esterase Negative Negative /uL Urine RBC 2 0 - 4 /hpf Urine Microscopic WBC 17 H 0-5 /HPF Urine Squamous Epithelial Cells Few <5 /hpf Urine Bacteria None seen None Seen /hpf Urine Osmolality 382 mOsm/kg Urine Creatinine 44.36 30.0-125.0 mg/dL Urine Protein/Creatinine Ratio 8.53 Urine Sodium 49 40-220 mmol/L Urine Glucose 4+ H Normal mg/dL Urine Total Protein 378.6 H 1-14 mg/dL Urine Opiates Screen Neg NEGATIVE Urine Fentanyl Screen Neg NEGATIVE Urine Barbiturates Screen Neg NEGATIVE Urine Phencyclidine Screen Neg NEGATIVE Urine Amphetamines Screen Neg NEGATIVE Urine Benzodiazepines Screen Neg NEGATIVE Urine Cocaine Screen Neg NEGATIVE Urine Cannabinoids Screen Neg NEGATIVE Influenza Type A Antigen Negative Negative Influenza Type B Antigen Negative Negative SARS-CoV-2 Antigen (Rapid) Negative NEGATIVE Test 06/01/24 02:55 06/01/24 01:02 05/31/24 22:36 Range/Units Hemoglobin A1c 5.3 <5.7 % A1C Phosphorus Level 6.0 H 2.4-5.1 mg/dL Magnesium Level 2.5 1.6-2.6 mg/dL Total Bilirubin 0.3 0.2-1.0 mg/dL Aspartate Amino Transferase (AST) 39 13-40 U/L Alanine Aminotransferase (ALT) 14 7-40 U/L Alkaline Phosphatase 99 46-116 U/L Total Protein 7.8 5.7-8.2 g/dL Albumin 4.4 3.2-4.8 g/dL Triglycerides Level 147 < 150 mg/dL Cholesterol Level 227 H < 200 mg/dL LDL Cholesterol 165 H < 100 mg/dL HDL Cholesterol 37 L 40-59 mg/dL Vitamin B12 Level 390 211-911 pg/mL Vitamin D 25-Hydroxy 10.9 L 30.0-100 ng/mL Thyroid Stimulating Hormone (TSH) 0.71 0.55-4.78 uIU/mL Blood Gas EPAP 5 Blood Gas IPAP 12 B-Type Natriuretic Peptide 604.23 0-100 pg/mL Microbiology Date/Time Source Procedure Growth Status 06/01/24 06:11 Nose MRSA Screen - Final Complete Assessment NSTEMI, rule out type 1. Rule out structural heart disease. Hypertensive emergency, resolved. Dyslipidemia. Sepsis. DKA. Acute kidney injury. Hyperkalemia. Plan/Recommendation I agree with your ongoing assessment and care of plan. Patient has been seen by Marguerite Willard NP on my behalf, her and I discussed the plan with the patient. Given the patient's clinical presentation, elevated troponin level, and twelve lead electrocardiogram, the patient may benefit from a coronary angiogram with left heart catheterization.The procedure was discussed with the patient in full detail including risks and benefits. Risks include but are not limited to bleeding, contrast-induced nephropathy, stroke, and even . The patient and her family are concerned about risks of further renal damage. At this time, the patient would like time to consider undergoing a coronary angiogram. If the patient is agreeable, we will tentatively schedule the patient for coronary angiogram with left heart catheterization on 06/04/24 if clinically stable. In the meantime, continue with medical management. Transthoracic echocardiogram to evaluate cardiac function. Chest pain protocol. MARTHA score: 5 points. HEART score: 8 points (high score). Heparin drip per pharmacy protocol. Single antiplatelet therapy and lipid-lowering agent. Antibiotics per primary care team. Close Cardiac surveillance. Additional plan as per the hospital course. Plan discussed with: Patient NYHA Physical activity limitations: NA Date of Service: Jun 01, 2024 Billing Provider: BRADEN RIVERA MD Cardiology Common Codes: 11227-[id number] INP/OBS CARE (High) Cardiology Consultation Codes: [id number] CONSULT <45MIN BRADEN RIVERA MD Jun 01, 2024 22:27
[2024-06-02] VITALS (105 sets, daily range): BP systolic 90–131; BP diastolic 41–69; PULSE 101–124; RESP 20–26; TEMP 98.6–101.3; O2SAT 96–100
[2024-06-02] MEDS: HEPARIN DRIP/D5W 100UNITS/ML 250 ML IV SCH ×2 (00:01→11:00)
--- NOTE | 2024-06-02 00:03 | DVH ---
CHEST RADIOGRAPH Indication: Eval ETT Technique: Single frontal view of the chest was obtained COMPARISON: XY CHEST XRAY 1 VIEW on DOS: 06/01/24, XY CHEST XRAY 1 VIEW on DOS: 06/01/24, XY CHEST PORT ABLE on DOS: 05/31/24 FINDINGS: Lines and Tubes: Unchanged. Lungs: Diffuse bilateral patchy multifocal consolidative infiltrate is grossly stable in appearance. Pleura: No effusion. No pneumothorax. Cardiomediastinal contours: Unremarkable Bones: Unremarkable IMPRESSION: 1. Stable diffuse patchy multifocal consolidative appearing bilateral pulmonary airspace disease. 2. Lines and tubes unchanged.
--- NOTE | 2024-06-02 01:44 | DVHSR ---
APPROVED REPORT EXAM: Two-dimensional and M-mode echocardiogram with Doppler and color Doppler. Blood Pressure: 150/63 mmHg INDICATION NSTEMI RISK FACTORS Height: 50, Weight: 105 DIMENSIONS LVDd (3.8-5.7cm)LA (2D)4.3 (1.9-4.0cm)Aortic Root2.8 (2.0-3.7cm) LVDs (2.5-4.0cm)LA (MM) (1.9-4.0cm)Aortic Cusp Exc1.3 (1.5-2.0cm) EF (%) 60.0 (55-70%)Rt. Atrium3.6 (1.9-4.0cm)Asc. Aorta cm Mitral Valve MitralMitral Stenosis E wave1.25m/sMV Mean GR.3mmHg A wave0.91m/sMV Peak GR.149mmHg E/A ratio1.42D MVAcm2 DECEL [id number] 1/2 Dhts73tu IVRTmsDop MVA4.30cm2 Aortic Valve Aortic ValveAortic Stenosis V10.99m/Lino Mean GR.6mmHg V21.72m/Lino Peak GR.12mmHg LVOT Diameter1.7 (1.8-2.4cm)Doppler AVA1.31cm2 Pulmonic Valve V21.36m/s Tricuspid Valve TR Velocity2.96m/s [id number] Conclusion MILD LVH AND MILD LV DIASTOLIC DYSFUNCTION LV EF IS 65% MODERATELY DILATED LA MODERATELY SEVERE MITRAL REGURGITATION SEVERE PULMONARY HYPERTENSION RVSP IS 67 MM OF HG AND IS VERY HIGH NO EFFUSION MILD AORTIC STENOSIS
[2024-06-02 02:31] LABS: Potassium 4.5 mmol/L (3.5-5.1); Sodium 142 mmol/L (136-145)
[2024-06-02 02:32] LABS: Anion Gap 18 (5-15)
[2024-06-02 02:33] LABS: Calcium 8.8 mg/dL (8.7-10.4)
[2024-06-02 02:37] LABS: BUN/Creatinine Ratio 13.7 (10.0-20.0)
[2024-06-02 02:40] LABS: Carbon Dioxide 16 mmol/L (20-31); Chloride 108 mmol/L (98-107); Glucose 158 mg/dL (74-106)
[2024-06-02 02:41] LABS: Blood Urea Nitrogen 103 mg/dL (9-23)
[2024-06-02 03:44] LABS: Basophils # (auto) 0 10 ^3/uL (0-0.2); Eosinophils # (auto) 0 10 ^3/uL (0-0.8); Hematocrit 22.3 % (36.0-46.0); Lymphocytes # (auto) 1.2 10 ^3/uL (0.4-5.4); Monocytes # (auto) 0.6 10 ^3/uL (0-1.3); Potassium 4.3 mmol/L (3.5-5.1); Red Blood Cells 2.64 10^6/uL (4.0-5.20); Sodium 142 mmol/L (136-145)
[2024-06-02 03:45] LABS: Anion Gap 17 (5-15)
[2024-06-02 03:46] LABS: Basophils % (auto) 0.2 % (0.0-2.0); Calcium 8.9 mg/dL (8.7-10.4); Hemoglobin 7.4 g/dL (12.2-16.2); Lymphocytes % (auto) 7.4 % (10.0-50.0); Mean Corpuscular Hemoglobin 28.1 pg (28.0-32.0); Mean Corpuscular Hgb Conc. 33.4 g/dL (32.0-36.0); Mean Corpuscular Volume 84.3 fL (80.0-100.0); Monocytes % (auto) 3.5 % (0.0-12.0); Neutrophils # (auto) 14.3 10 ^3/uL (1.6-8.6); Neutrophils % (auto) 88.9 % (37.0-80.0); Platelet Count (auto) 223 10^3/uL (140-450); White Blood Cell 16.1 10^3/uL (4.4-10.8)
[2024-06-02 03:58] LABS: Carbon Dioxide 16 mmol/L (20-31); Chloride 109 mmol/L (98-107); Glucose 149 mg/dL (74-106); INR 1.03 (0.9-1.15); Partial Thromboplastin Time 46.6 SEC (24.5-34.5); Prothrombin Time 10.9 sec (9.3-11.8)
[2024-06-02 03:59] LABS: Blood Urea Nitrogen 105 mg/dL (9-23)
[2024-06-02] MEDS: ACETAMINOPHEN 325 MG TAB PO PRN (04:38)
[2024-06-02 06:35] LABS: Base Excess -5.8 mmol/L (-2.0-3.0)
--- NOTE | 2024-06-02 06:41 | DVH ---
CHEST RADIOGRAPH Indication: b/l opacities in previus x ray, s/p mech ventilation Technique: Single frontal view of the chest was obtained COMPARISON: XY CHEST PORTABLE on DOS: 06/01/24, XY CHEST XRAY 1 VIEW on DOS: 06/01/24, XY CHEST XRAY 1 VIEW on DOS: 06/01/24, XY CHEST PORTABLE on DOS: 05/31/24 FINDINGS: Lines and Tubes: Unchanged. Lungs: Slight interval improvement in diffuse patchy multifocal bilateral pulmonary airspace disease. Pleura: No effusion. No pneumothorax. Cardiomediastinal contours: Unremarkable Bones: Unremarkable IMPRESSION: 1. Slight interval improvement in diffuse patchy multifocal bilateral pulmonary airspace disease. 2. Lines and tubes unchanged.
[2024-06-02] MEDS: MEROPENEM 500MG IVPB 50 ML IV SCH (09:17)
[2024-06-02] MEDS ORDERED: INSULIN LANTUS (GLARGINE) 1 /0.01ml (100units/ml) SC SCH ×2 (10:00)
--- NOTE | 2024-06-02 11:12 | CONS ---
Pharmacy Clinical Information: HEPARIN PER RX APTT RESULT 46.6 [06/02@0319] OLD RATE 500U/ML TO BE INCREASED TO NEW RATE 700U/ML (7ML/HR) NEXT APTT 06/02@1300 COMMUNICATED WITH RN YVETTE GAYTAN PHARMACIST Jun 02, 2024 11:12
--- NOTE | 2024-06-02 11:53 | DVHPN2 ---
Subjective Orally intubated No cardiac events reported Changes from previous H/P or p: No Changes Objective Vitals Vital Signs Date Time Temp Pulse Resp B/P (MAP) Pulse Ox O2 Delivery O2 Flow Rate FiO2 06/02/24 11:01 101.1 06/02/24 10:30 111 26 116/61 (79) 99 06/02/24 10:18 35 06/02/24 10:00 Mechanical Ventilator+ 06/01/24 07:49 6 Intake/Output Intake and Output 06/02/24 07:00 Intake Total 2867.0 ml Output Total 900 ml Balance 1967.0 ml Intake Oral 20 ml IV Total 2247.0 ml Tube Feeding 0 ml Blood Product 600 ml Other 0 ml Output Urine Total 900 ml Urine/Stool Mix 0 ml Gastric Drainage Total 0 ml Emesis 0 ml Chest Tube Drainage Total 0 ml Drainage Total 0 ml Other 0 ml Cardiovascular: Regular rate, Normal S1, Normal S2 Medications Current Medications Medications Dose Ordered Sig/[place] Route Start Time Stop Time Status Last Admin Dose Admin Aspirin 81 mg DAILY PO 06/01/24 10:00 06/02/24 09:17 81 MG Atorvastatin Calcium 40 mg HS PO 06/01/24 22:00 Pantoprazole Sodium 40 mg DAILY IV 06/01/24 10:00 06/02/24 09:17 40 MG Insulin Glargine 15 units DAILY SC 06/02/24 10:00 Cancel Ipratropium [place] 0.5 mg Q4HR NEB 06/01/24 10:00 06/02/24 10:32 0.5 MG Levalbuterol HCl 0.625 mg Q4HR NEB 06/01/24 10:00 06/02/24 10:32 0.625 MG Doxycycline Hyclate 100 ml @ 50 mls/hr Q12H IV 06/01/24 08:30 06/02/24 07:50 50 MLS/HR Meropenem 50 ml @ 17 mls/hr DAILY IV 06/02/24 10:00 06/02/24 09:17 17 MLS/HR Midazolam HCl 50 ml @ 1 mls/hr Q24H IV 06/01/24 13:15 06/02/24 07:49 6 MLS/HR Fentanyl Citrate 250 ml @ 2.5 mls/hr Q24H IV 06/01/24 13:15 06/01/24 13:18 2.5 MLS/HR Diagnostic Test (Pha) 1 strip IQ4HR 06/01/24 16:00 06/02/24 08:05 1 STRIP Insulin Human Regular IQ4HR SC 06/01/24 16:00 06/01/24 23:59 4 UNITS Dextrose 50 ml UD PRN IV 06/01/24 13:30 Norepinephrine Bitartrate 16 mg/ Sodium Chloride 250 ml @ 1.875 mls/ hr Q24H IV 06/01/24 16:30 Acetaminophen 650 mg Q6HP PRN PO 06/02/24 04:15 06/02/24 11:01 650 MG Heparin Sodium/ Dextrose 250 ml @ 7 mls/hr Q24H IV 06/02/24 11:00 Laboratory Results Laboratory Tests 06/02/24 03:19 Chemistry Test 06/01/24 14:00 06/01/24 19:09 06/01/24 22:05 06/02/24 02:10 Calcium Level 8.4 mg/dL (8.7-10.4) L 9.1 mg/dL (8.7-10.4) 8.9 mg/dL (8.7-10.4) 8.8 mg/dL (8.7-10.4) Test 06/02/24 03:19 Calcium Level 8.9 mg/dL (8.7-10.4) Phosphorus Level 5.7 mg/dL (2.4-5.1) H Coagulation Test 06/01/24 15:55 06/01/24 22:05 06/02/24 03:19 Prothrombin Time 10.7 sec (9.3-11.8) 10.8 sec (9.3-11.8) 10.9 sec (9.3-11.8) Prothrombin Time INR 1.01 (0.9-1.15) 1.02 (0.9-1.15) 1.03 (0.9-1.15) Activated Partial Thromboplast Time 53.0 SEC (24.5-34.5) H 90.1 SEC (24.5-34.5) *H 46.6 SEC (24.5-34.5) H Urinalysis Test 06/01/24 05:07 Urine Color Colorless (Yellow) Urine Clarity Clear (Clear) Urine pH 6.0 (5.0-9.0) Urine Specific [place] 1.012 (1.001-1.035) Urine Protein 2+ (Negative) H Urine Ketones Negative (Negative) Urine Blood 1+ /uL (Negative) H Urine Nitrite Negative (Negative) Urine Bilirubin Negative (Negative) Urine Urobilinogen Normal mg/dL (Negative) Urine Leukocyte Esterase Negative /uL (Negative) Urine RBC 2 /hpf (0 - 4) Urine Microscopic WBC 17 /HPF (0-5) H Urine Squamous Epithelial Cells Few /hpf (<5) Urine Bacteria None seen /hpf (None Seen) Urine Osmolality 382 mOsm/kg Urine Random Microalbumin Pending Urine Creatinine 44.36 mg/dL (30.0-125.0) Urine Protein/Creatinine Ratio 8.53 Urine Sodium 49 mmol/L (40-220) Urine Glucose 4+ mg/dL (Normal) H Urine Total Protein 378.6 mg/dL (1-14) H Blood Gas Results Test 06/01/24 12:35 06/01/24 14:33 06/01/24 19:23 06/02/24 06:30 Arterial Blood pH 7.310 (7.350-7.450) 7.122 (7.350-7.450) 7.248 (7.350-7.450) 7.467 (7.350-7.450) FiO2 % 70.0 100.0 70.0 45.0 Microbiology Microbiology Date/Time Source Procedure Growth Status 06/01/24 06:11 Nose MRSA Screen - Final Complete 06/01/24 05:07 Urine - [place] Urine Culture - Preliminary Resulted 06/01/24 00:55 Blood Blood Culture - Preliminary NO GROWTH AFTER 24 HOURS OF INCUBATION. Resulted Assessment/Plan Assessment/Plan NSTEMI, rule out type 1 Rule out structural heart disease Hypertensive emergency, resolved Dyslipidemia Sepsis DKA Acute kidney injury Hyperkalemia Plan/recommendation ( Dr. Rivera) * Transthoracic echocardiogram to evaluate cardiac function * Chest pain protocol- , MARTHA score 5, heart score 8 * Heparin drip * Single antiplatelet therapy and lipid lowering agent * Antibiotics per primary team Close cardiac surveillance, we will re-evaluate for possible ischemic workup once patient stabilized and family agree with the preprocedure. Plan discussed with: Patient, Other (RN) Date of Service: Jun 02, 2024 Billing Provider: BRADEN RIVERA MD Common Visit Codes: CONSULT ONLY MONO PICHARDO DIRECTOR [employer] Jun 02, 2024 11:53
--- NOTE | 2024-06-02 12:39 | DVHPN2 ---
Progress Note - Dictate Date Seen: Jun 02, 2024 Medical Necessity Reason Pt with a Central, PICC or Fol: Yes The following are medically ne: Central Line, [place]az Catheter Subjective Urine output improved vital signs Vital Sign Date Time Temp Pulse Resp B/P (MAP) Pulse Ox O2 Delivery O2 Flow Rate FiO2 06/02/24 12:02 120 26 97/52 (67) 97 35 06/02/24 12:00 Mechanical Ventilator+ 06/02/24 11:56 101.1 06/01/24 07:49 6 Total Intake and Output 06/01/24 06/01/24 06/02/24 14:59 22:59 06:59 Intake Total 1759.5 ml 778.5 ml 305.0 ml Output Total 500 ml 400 ml Balance 1759.5 ml 278.5 ml -95.0 ml medications Current Medications Medications Dose Ordered Sig/[place] Route Start Time Stop Time Status Last Admin Dose Admin Aspirin 81 mg DAILY PO 06/01/24 10:00 06/02/24 09:17 81 MG Atorvastatin Calcium 40 mg HS PO 06/01/24 22:00 Pantoprazole Sodium 40 mg DAILY IV 06/01/24 10:00 06/02/24 09:17 40 MG Insulin Glargine 15 units DAILY SC 06/02/24 10:00 Cancel Ipratropium [place] 0.5 mg Q4HR NEB 06/01/24 10:00 06/02/24 10:32 0.5 MG Levalbuterol HCl 0.625 mg Q4HR NEB 06/01/24 10:00 06/02/24 10:32 0.625 MG Doxycycline Hyclate 100 ml @ 50 mls/hr Q12H IV 06/01/24 08:30 06/02/24 07:50 50 MLS/HR Meropenem 50 ml @ 17 mls/hr DAILY IV 06/02/24 10:00 06/02/24 09:17 17 MLS/HR Midazolam HCl 50 ml @ 1 mls/hr Q24H IV 06/01/24 13:15 06/02/24 07:49 6 MLS/HR Fentanyl Citrate 250 ml @ 2.5 mls/hr Q24H IV 06/01/24 13:15 06/02/24 12:30 17.5 MLS/HR Diagnostic Test (Pha) 1 strip IQ4HR 06/01/24 16:00 06/02/24 11:55 1 STRIP Insulin Human Regular IQ4HR SC 06/01/24 16:00 06/01/24 23:59 4 UNITS Dextrose 50 ml UD PRN IV 06/01/24 13:30 Norepinephrine Bitartrate 16 mg/ Sodium Chloride 250 ml @ 1.875 mls/ hr Q24H IV 06/01/24 16:30 Acetaminophen 650 mg Q6HP PRN PO 06/02/24 04:15 06/02/24 11:01 650 MG Heparin Sodium/ Dextrose 250 ml @ 7 mls/hr Q24H IV 06/02/24 11:00 objective Gen: nad, elderly female, intubated heent: nc/at, lungs: Occasional rhonchi cvs: no rub abd: soft, bowel sounds audible ext: no edema skin: no rash laboratory and microbiology Laboratory Tests 06/02/24 03:19 Test 06/02/24 03:19 Range/Units Serum Glucose 149 H 74-106 mg/dL Assessment/Plan IMP: 1) hemodynamically mediated acute kidney injury, possible ischemic ATN 2) NSTEMI 3) acute anemia 4) acute hypoxemic respiratory failure 5) DM II 6) AGMA - possible uremic acidosis REC: - fluid challenge - metabolic parameters improved, we will continue to follow for signs of meaningful Kidney recovery - without urgent indication for dialysis. Plan discussed with: Other CC Plasma Assessment Blood Product Administration S: [id number] COOPER LOPEZ MD Jun 02, 2024 12:38
[2024-06-02] MEDS: SODIUM CHLORIDE 0.9% 500 ML IV ONE (12:45)
[2024-06-02] MEDS: SODIUM CHLORIDE 0.9% 1,000 ML IV SCH (12:45)
[2024-06-02 14:55] LABS: INR 1.04 (0.9-1.15); Partial Thromboplastin Time 59.8 SEC (24.5-34.5)
--- NOTE | 2024-06-02 18:51 | DVHPN2 ---
Consult Progress Note Subjective Other Systems: Patient was seen and evaluated in follow up in the ICU. Overnight the patient was intubated for airway protection. No cardiac events reported. 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 Chest x-ray shows slight interval improvement in diffuse patchy multifocal bilateral pulmonary airspace disease. Objective vital signs Vital Sign Date Time Temp Pulse Resp B/P (MAP) Pulse Ox O2 Delivery O2 Flow Rate FiO2 06/02/24 12:02 120 26 97/52 (67) 97 35 06/02/24 12:00 Mechanical Ventilator+ 06/02/24 11:56 101.1 06/01/24 07:49 6 Total Intake and Output 06/01/24 06/01/24 06/02/24 15:00 23:00 07:00 Intake Total 1765.0 ml 791.0 ml 311.0 ml Output Total 500 ml 400 ml Balance 1765.0 ml 291.0 ml -89.0 ml medications Current Medications Medications Dose Ordered Sig/[place] Route Start Time Stop Time Status Last Admin Dose Admin Aspirin 81 mg DAILY PO 06/01/24 10:00 06/02/24 09:17 81 MG Atorvastatin Calcium 40 mg HS PO 06/01/24 22:00 Pantoprazole Sodium 40 mg DAILY IV 06/01/24 10:00 06/02/24 09:17 40 MG Insulin Glargine 15 units DAILY SC 06/02/24 10:00 Cancel Ipratropium [place] 0.5 mg Q4HR NEB 06/01/24 10:00 06/02/24 10:32 0.5 MG Levalbuterol HCl 0.625 mg Q4HR NEB 06/01/24 10:00 06/02/24 10:32 0.625 MG Doxycycline Hyclate 100 ml @ 50 mls/hr Q12H IV 06/01/24 08:30 06/02/24 07:50 50 MLS/HR Meropenem 50 ml @ 17 mls/hr DAILY IV 06/02/24 10:00 06/02/24 09:17 17 MLS/HR Midazolam HCl 50 ml @ 1 mls/hr Q24H IV 06/01/24 13:15 06/02/24 07:49 6 MLS/HR Fentanyl Citrate 250 ml @ 2.5 mls/hr Q24H IV 06/01/24 13:15 06/02/24 12:30 17.5 MLS/HR Diagnostic Test (Pha) 1 strip IQ4HR 06/01/24 16:00 06/02/24 11:55 1 STRIP Insulin Human Regular IQ4HR SC 06/01/24 16:00 06/01/24 23:59 4 UNITS Dextrose 50 ml UD PRN IV 06/01/24 13:30 Norepinephrine Bitartrate 16 mg/ Sodium Chloride 250 ml @ 1.875 mls/ hr Q24H IV 06/01/24 16:30 Acetaminophen 650 mg Q6HP PRN PO 06/02/24 04:15 06/02/24 11:01 650 MG Heparin Sodium/ Dextrose 250 ml @ 7 mls/hr Q24H IV 06/02/24 11:00 Sodium Chloride 1,000 ml @ 100 mls/hr Q10H IV 06/02/24 12:45 06/02/24 12:45 100 MLS/HR Examination: GENERAL:Abnormal (intubated on vent), HEENT:Normal, LUNGS:Abnormal (Decreased breath sounds ), ABDOMEN:Normal, NEURO:Abnormal (Sedated ) laboratory and microbiology Laboratory Tests 06/02/24 03:19 Test 06/02/24 03:19 Range/Units Serum Glucose 149 H 74-106 mg/dL Problem List/Assessment/Plan Problem List/Assessment/Plan Assessment NSTEMI, rule out type 1. Rule out structural heart disease. Hypertensive emergency, resolved. Dyslipidemia. Sepsis. DKA. Acute kidney injury. Hyperkalemia. Plan/Recommendation Continued all current supportive medical care. Patient has been seen by Joan Maki NP on my behalf, her and I discussed the plan with the patient. Transthoracic echocardiogram to evaluate cardiac function. Chest pain protocol- , MARTHA score 5, heart score 8. Heparin drip. Single antiplatelet therapy and lipid lowering agent. Antibiotics per primary team. Close cardiac surveillance, we will re-evaluate for possible ischemic workup once patient stabilized and family agree with the preprocedure. Additional plan as per the hospital course. Plan discussed with: Other CC Plasma Assessment Blood Product Administration S: [id number] Date of Service: Jun 02, 2024 Billing Provider: BRADEN RIVERA MD Cardiology Common Codes: [id number] CARE 30-74 MIN BRADEN RIVERA MD Jun 02, 2024 13:31
--- NOTE | 2024-06-02 20:21 | DVHPN2 ---
Subjective Patient was a 74-year-old female with a past medical history of type 2 diabetes mellitus, hypertension, hyperlipidemia presented to the ED with a chief complaint of chest pain. Patient reports that with the chest pain started 2 weeks ago while she was in [place] but was intermittent, left-sided/retrosternal which was [id number] in intensity which she acknowledged following which she came to the [facility] about a week ago. On Tuesday, patient started to have worsening chest pain which was radiating to the left arm and associated with dyspnea. Last night patient's chest pain increased in intensity to 10/10 following which she came to the ED. patient denied having fever or chills, had episodes of cough but denied any phlegm. Patient did not have any sick contacts. As the patient does not have teeth she has been eating pureed diet, denies any episode of syncope or loss of consciousness or aspiration. Past medical history: Type 2 diabetes mellitus, hypertension, hyperlipidemia Past surgical history: 1 C section Social history: Patient lives with her son in [place] and is currently visiting her daughter lives in [facility], denies smoking, alcohol or drug use Home medications: Amlodipine 5 mg, valsartan 160 mg, hydrochlorothiazide 12.5 mg, dapagliflozin 10 mg, aspirin 81 mg Review of systems Patient seen and examined at the bedside, intubated, ventilated, no vasopressor Reviewed: H&P Changes from previous H/P or p: No Changes General: Per HPI Objective Vitals Vital Signs Date Time Temp Pulse Resp B/P (MAP) Pulse Ox O2 Delivery O2 Flow Rate FiO2 06/02/24 19:52 105 26 106/54 (71) 100 35 06/02/24 18:45 100.6 213.1 06/02/24 18:00 Mechanical Ventilator+ 06/01/24 07:49 6 Intake/Output Intake and Output 06/02/24 07:00 Intake Total 2867.0 ml Output Total 900 ml Balance 1967.0 ml Intake Oral 20 ml IV Total 2247.0 ml Tube Feeding 0 ml Blood Product 600 ml Other 0 ml Output Urine Total 900 ml Urine/Stool Mix 0 ml Gastric Drainage Total 0 ml Emesis 0 ml Chest Tube Drainage Total 0 ml Drainage Total 0 ml Other 0 ml Exam Constitutional: Patient is sedated and on mechanical ventilation with RASS -3 Gen - mild conjunctival pallor, no icterus, no cyanosis, no clubbing, no LAD, no pedal edema. Skin - Patients skin is warm and dry. HEENT - normocephalic, atraumatic, dry mucous membranes. Neck - full ROM, no LAD, no JVD Pulmonary - B/L diffuse coarse inspiratory crackles, no wheezing, no stridor. cardiovascular - Regular S1,S2 heard, no added sounds, no murmurs heard. capillary refill normal <2 secs. GI - soft, nontender abdomen. no hepatospleenomegaly. Bowel sounds normoactive Neurological -on mechanical ventilation, pupils equal and reactive, gag reflex present Cardiovascular: Regular rate, Normal S1, Normal S2 Medications Current Medications Medications Dose Ordered Sig/[place] Route Start Time Stop Time Status Last Admin Dose Admin Aspirin 81 mg DAILY PO 06/01/24 10:00 06/02/24 09:17 81 MG Atorvastatin Calcium 40 mg HS PO 06/01/24 22:00 Pantoprazole Sodium 40 mg DAILY IV 06/01/24 10:00 06/02/24 09:17 40 MG Insulin Glargine 15 units DAILY SC 06/02/24 10:00 Cancel Ipratropium [place] 0.5 mg Q4HR NEB 06/01/24 10:00 06/02/24 18:25 0.5 MG Levalbuterol HCl 0.625 mg Q4HR NEB 06/01/24 10:00 06/02/24 18:25 0.625 MG Doxycycline Hyclate 100 ml @ 50 mls/hr Q12H IV 06/01/24 08:30 06/02/24 07:50 50 MLS/HR Meropenem 50 ml @ 17 mls/hr DAILY IV 06/02/24 10:00 06/02/24 09:17 17 MLS/HR Midazolam HCl 50 ml @ 1 mls/hr Q24H IV 06/01/24 13:15 06/02/24 07:49 6 MLS/HR Fentanyl Citrate 250 ml @ 2.5 mls/hr Q24H IV 06/01/24 13:15 06/02/24 12:30 17.5 MLS/HR Diagnostic Test (Pha) 1 strip IQ4HR 06/01/24 16:00 06/02/24 16:00 1 STRIP Insulin Human Regular IQ4HR SC 06/01/24 16:00 06/01/24 23:59 4 UNITS Dextrose 50 ml UD PRN IV 06/01/24 13:30 Norepinephrine Bitartrate 16 mg/ Sodium Chloride 250 ml @ 1.875 mls/ hr Q24H IV 06/01/24 16:30 Acetaminophen 650 mg Q6HP PRN PO 06/02/24 04:15 06/02/24 16:57 650 MG Heparin Sodium/ Dextrose 250 ml @ 7 mls/hr Q24H IV 06/02/24 11:00 Sodium Chloride 1,000 ml @ 100 mls/hr Q10H IV 06/02/24 12:45 06/02/24 12:45 100 MLS/HR Laboratory Results Laboratory Tests 06/02/24 03:19 Chemistry Test 06/01/24 22:05 06/02/24 02:10 06/02/24 03:19 Calcium Level 8.9 mg/dL (8.7-10.4) 8.8 mg/dL (8.7-10.4) 8.9 mg/dL (8.7-10.4) Phosphorus Level 5.7 mg/dL (2.4-5.1) H Coagulation Test 06/01/24 22:05 06/02/24 03:19 06/02/24 14:24 Prothrombin Time 10.8 sec (9.3-11.8) 10.9 sec (9.3-11.8) 11.0 sec (9.3-11.8) Prothrombin Time INR 1.02 (0.9-1.15) 1.03 (0.9-1.15) 1.04 (0.9-1.15) Activated Partial Thromboplast Time 90.1 SEC (24.5-34.5) *H 46.6 SEC (24.5-34.5) H 59.8 SEC (24.5-34.5) H Urinalysis Test 06/01/24 05:07 Urine Color Colorless (Yellow) Urine Clarity Clear (Clear) Urine pH 6.0 (5.0-9.0) Urine Specific [place] 1.012 (1.001-1.035) Urine Protein 2+ (Negative) H Urine Ketones Negative (Negative) Urine Blood 1+ /uL (Negative) H Urine Nitrite Negative (Negative) Urine Bilirubin Negative (Negative) Urine Urobilinogen Normal mg/dL (Negative) Urine Leukocyte Esterase Negative /uL (Negative) Urine RBC 2 /hpf (0 - 4) Urine Microscopic WBC 17 /HPF (0-5) H Urine Squamous Epithelial Cells Few /hpf (<5) Urine Bacteria None seen /hpf (None Seen) Urine Osmolality 382 mOsm/kg Urine Random Microalbumin Pending Urine Creatinine 44.36 mg/dL (30.0-125.0) Urine Protein/Creatinine Ratio 8.53 Urine Sodium 49 mmol/L (40-220) Urine Glucose 4+ mg/dL (Normal) H Urine Total Protein 378.6 mg/dL (1-14) H Blood Gas Results Test 06/02/24 06:30 Arterial Blood pH 7.467 (7.350-7.450) FiO2 % 45.0 Microbiology Microbiology Date/Time Source Procedure Growth Status 06/02/24 03:30 Nose MRSA Screen - Final Complete 06/01/24 13:21 Sputum Gram Stain - Preliminary Resulted 06/01/24 13:21 Sputum Respiratory Culture - Preliminary Resulted 06/01/24 05:07 Urine - [place] Urine Culture - Preliminary Resulted 06/01/24 00:55 Blood Blood Culture - Preliminary NO GROWTH AFTER 24 HOURS OF INCUBATION. Resulted Labs and/or images reviewed: Labs reviewed by me, Image(s) reviewed by me Assessment/Plan Assessment/Plan Update 06/02 Conner at bedside with RN. Nephrology recently seen patient. Patient making minimal urine. We will try fluid challenge. Vent settings are stable with ABG stable. Patient was status post 1 unit packed RBC and hemoglobin holding well. Patient was left heart catheterization. Also getting patient antibiotics meropenem/doxycycline with source of pneumonia. Cardiology and nephrology following. Neurology # Acute metabolic encephalopathy likely due to uremia # S/p Mechanical ventilation - sedated with fentanyl and midazolam - RASS -4 Respiratory # Acute hypoxic respiratory failure likely d/t acute CHF # B/L acute pulmonary edema # Sepsis likely due to pneumonia with Gram +/- bacteria # ?ARDS - On mechanical ventilation with PEEP 5, Vt- 400ml, FiO2- 70%, RR 22 - one dose of lasix 60mg IV given, will monitor for urine output and aggressive diuresis to be avoided as the patient is volume depleted with underlying sepsis - IV meropenam and doxycycline for broad spectrum coverage - sputum cultures pending Cardiovascular # NSTEMI likely type I # acute congestive heart failure - EKG shows ST elevation in aVr, STd in I,II,V5,V6 - troponins uptrending - on heparin drip - atorvastatin and aspirin - cardiology consultation for possible angiographic evaluation - POCUS revealed collapsible IVC and patient given fluids - ECHO shows right ventricular strain Nephrology # Anion Gap Metabolic acidosis likely due to uremia/lactic acidosis with sepsis # severe ROSSY on CKD likely d/t sepsis causing ATN # Lactic acidosis # DKA less likely - 100Meq sodium bicarb given - ABG reviewed shows metabolic acidosis - serum bicarb and anion gap improving - insulin drip but discontinued - responds to fluid challenge with improvement in lactic acid - nephrology on board Hematology # severe acute anemia - stool occult blood negative - given one unit PRBC - monitor H&H Infectious disease # Sepsis likely d/t pneumonia - IV meropenam and doxycycline for broad spectrum coverage - sputum cultures pending Goals of care discussed with the daughter for over 27 mins. Full code Lines right femoral TLC- inserted on 06/01 intubated- 06/01 dixon cath- 06/01 critical care time spent excluding procedures: 51 mins Plan discussed with: Patient Date of Service: Jun 02, 2024 Billing Provider: SHARON PINK MD Common Visit Codes: [id number] CARE 30-74 MIN SHARON PINK MD Jun 02, 2024 20:21
[2024-06-02 21:06] LABS: INR 1.06 (0.9-1.15); Partial Thromboplastin Time 69.3 SEC (24.5-34.5); Prothrombin Time 11.2 sec (9.3-11.8)
--- NOTE | 2024-06-02 22:48 | DVHINCON2 ---
Date of service: Jun 02, 2024 Referring Physician Yoana Rose MD Reason for Consultation Acute hypoxic respiratory failure requiring mechanical ventilator History of Present Illness A 74-year-old woman with PMHx of hypertension and diabetes who presented to ED on 06/01/24 with c/o intermittent retrosternal chest pain x 2 weeks, functional class IV which lasted approximately 30 minutes with intensity 5/10, radiating towards left arm with associated dyspnea. Subsequently pain increased in intensity to 10/10, prompting her visit to the ED. Patient is originally from [place], visiting her daughter here. Her PCP is in [place]. Pt is noncompliant with her meds. Denied fever, chills, palpitation, N/V/D or other complaints. Patient was admitted for further care, and pulmonary consultation is requested for evaluation and management d/t the above findings. Review of Systems: 14-point review of systems negative unless otherwise noted above. Past Medical History: Hypertension and diabetes, [id number], non adherent Past Surgical History: None Medications: Reviewed. Allergies: No known drug allergies. Family History: No family history of premature CAD. No family history of lung disorders. Social History: Nonsmoker. No alcohol or illicit drug use. Allergies: Coded Allergies: No Known Drug Allergy (Verified Allergy, Unknown, 05/31/24) Current Medications Current Medications Medications (Trade) Dose Ordered Sig/[place] Route PRN Reason Start Time Stop Time Status Last Admin Insulin Glargine (Lantus) 15 units DAILY SC 06/02/24 10:00 06/01/24 08:35 DC Insulin Glargine (Lantus) 15 units DAILY SC 06/02/24 10:00 Cancel Meropenem 50 ml @ 17 mls/hr DAILY IV 06/02/24 10:00 06/02/24 09:17 Heparin Sodium/ Dextrose 250 ml @ 5 mls/hr Q24H IV 06/02/24 00:00 06/02/24 10:59 DC 06/02/24 09:24 Acetaminophen (Tylenol Tablet) 650 mg Q6HP PRN PO PAIN SCALE 1-3 OR TEMP>100.4 06/02/24 04:15 06/02/24 16:57 Heparin Sodium/ Dextrose 250 ml @ 7 mls/hr Q24H IV 06/02/24 11:00 Sodium Chloride 1,000 ml @ 100 mls/hr Q10H IV 06/02/24 12:45 06/02/24 12:45 Vital Signs Vital Signs Date Time Temp Pulse Resp B/P (MAP) Pulse Ox O2 Delivery O2 Flow Rate FiO2 06/02/24 21:25 101 20 100/47 (64) 100 35 06/02/24 18:45 100.6 213.1 06/02/24 18:00 Mechanical Ventilator+ 06/01/24 07:49 6 Physical Exam Gen.: Patient lying in bed in medical ICU. Sedated, intubated on mechanical ventilator. Head: Normocephalic, atraumatic. Eyes: PERRLA. Ears: Normal external anatomy. Throat: Endotracheal tube and orogastric tube in place. Neck: Supple, trachea midline. Chest: Transmitted breath sounds bilaterally. Decreased air entry bilaterally. No wheezing. Bibasilar crackles. Cardiovascular: Positive S1, positive S2. Regular rate and rhythm. Abdomen: Positive bowel sounds in all 4 quadrants. Soft, nontender, nondistended. : Paz in place. Normal external genitalia. Rectal: Deferred. Skin: Warm, dry. Intact. Extremities: 2+ radial pulses bilaterally. No lower extremity edema. Neuro: Sedated. Labs/Diagnostic Data Labs Test 06/02/24 20:32 06/02/24 20:20 06/02/24 06:30 06/02/24 03:19 Range/Units POC Glucose 77 70-106 mg/dl Prothrombin Time 11.2 9.3-11.8 sec Prothrombin Time INR 1.06 0.9-1.15 Activated Partial Thromboplast Time 69.3 H 24.5-34.5 SEC Blood Gas Specimen Type Arterial Blood Gas Sample Site Right radial Blood Gas Patient Temperature 37.0 Arterial Blood Date Drawn [id number] Arterial Blood pH 7.467 H 7.350-7.450 Arterial Blood Partial Pressure CO2 24.1 L 32.0-45.0 mmHg Arterial Blood Partial Pressure O2 74.8 L 83.0-108.0 mmHg Arterial Blood HCO3 17.0 L 21.0-28.0 mmol/L Arterial Blood Oxygen Saturation 95.6 94.0-98.0 % Arterial Blood Base Excess -5.8 L -2.0-3.0 mmol/L Arterial Blood Oxyhemoglobin 94.9 94.0-98.0 % Arterial Blood Carboxyhemoglobin 0.2 L 0.5-1.5 % Arterial Blood Methemoglobin 0.5 0.0-1.5 % Anil Test Modified Blood Gas Total Hemoglobin 7.70 L 12.0-16.0 g/dL Blood Gas Set Respiration Rate 26.0 Blood Gas Modality Vent - ac Blood Gas Spontaneous Rate 26 FiO2 % 45.0 Blood Gas Tidal Volume 400.0 Blood Gas Spontaneous Tidal Volume 849 Blood Gas PEEP or CPAP 5.0 White Blood Count 16.1 H 4.4-10.8 10^3/uL Red Blood Count 2.64 L 4.0-5.20 10^6/uL Hemoglobin 7.4 L 12.2-16.2 g/dL Hematocrit 22.3 #L 36.0-46.0 % Mean Corpuscular Volume 84.3 # 80.0-100.0 fL Mean Corpuscular Hemoglobin 28.1 28.0-32.0 pg Mean Corpuscular Hemoglobin Concent 33.4 32.0-36.0 g/dL Red Cell Distribution Width 14.0 11.8-14.3 % Platelet Count 223 140-450 10^3/uL Mean Platelet Volume 9.5 6.9-10.8 fL Neutrophils (%) (Auto) 88.9 H 37.0-80.0 % Lymphocytes (%) (Auto) 7.4 L 10.0-50.0 % Monocytes (%) (Auto) 3.5 0.0-12.0 % Eosinophils (%) (Auto) 0.0 0.0-7.0 % Basophils (%) (Auto) 0.2 0.0-2.0 % Neutrophils # (Auto) 14.3 H 1.6-8.6 10 ^3/uL Lymphocytes # (Auto) 1.2 0.4-5.4 10 ^3/uL Monocytes # (Auto) 0.6 0-1.3 10 ^3/uL Eosinophils # (Auto) 0 0-0.8 10 ^3/uL Basophils # (Auto) 0 0-0.2 10 ^3/uL Nucleated Red Blood Cells 0.0 % Sodium Level 142 136-145 mmol/L Potassium Level 4.3 3.5-5.1 mmol/L Chloride Level 109 H 98-107 mmol/L Carbon Dioxide Level 16 L 20-31 mmol/L Anion Gap 17 H 5-15 Blood Urea Nitrogen 105 *H 9-23 mg/dL Creatinine 7.52 H 0.550-1.02 mg/dL Glomerular Filtration Rate Calc 5 >90 mL/min BUN/Creatinine Ratio 14.0 10.0-20.0 Serum Glucose 149 H 74-106 mg/dL Calcium Level 8.9 8.7-10.4 mg/dL Phosphorus Level 5.7 H 2.4-5.1 mg/dL Test 06/01/24 21:30 06/01/24 19:23 06/01/24 14:00 06/01/24 12:35 Range/Units Lactic Acid Level 1.7 0.4-2.0 mmol/L Blood Gas Critical Value Read Back Yes Blood Gas Notified Whom Md reid Blood Gas Notified Time [id number] Blood Gas Notified By Director Of Product Development edis [place] Troponin I High Sensitivity 6715 *H </=34 ng/L Blood Gas Liter Flow 10.00 Test 06/01/24 12:00 06/01/24 08:25 06/01/24 07:50 06/01/24 05:07 Range/Units Stool Occult Blood Negative Negative Stool Occult Blood Sample #3 Negative Serum Osmolality 363 H 278-298 mOsm/kg Iron Level 16 L 50-170 ug/dL Total Iron Binding Capacity 239 L 250-425 ug/dL Percent Iron Saturation 6.7 L 15-50 % Ferritin 111.5 10-291 ng/mL Beta-Hydroxybutyric Acid 0.137 < 0.4 mmol/L Urine Color Colorless Yellow Urine Clarity Clear Clear Urine pH 6.0 5.0-9.0 Urine Specific [place] 1.012 1.001-1.035 Urine Protein 2+ H Negative Urine Ketones Negative Negative Urine Blood 1+ H Negative /uL Urine Nitrite Negative Negative Urine Bilirubin Negative Negative Urine Urobilinogen Normal Negative mg/dL Urine Leukocyte Esterase Negative Negative /uL Urine RBC 2 0 - 4 /hpf Urine Microscopic WBC 17 H 0-5 /HPF Urine Squamous Epithelial Cells Few <5 /hpf Urine Bacteria None seen None Seen /hpf Urine Osmolality 382 mOsm/kg Urine Creatinine 44.36 30.0-125.0 mg/dL Urine Protein/Creatinine Ratio 8.53 Urine Sodium 49 40-220 mmol/L Urine Glucose 4+ H Normal mg/dL Urine Total Protein 378.6 H 1-14 mg/dL Urine Opiates Screen Neg NEGATIVE Urine Fentanyl Screen Neg NEGATIVE Urine Barbiturates Screen Neg NEGATIVE Urine Phencyclidine Screen Neg NEGATIVE Urine Amphetamines Screen Neg NEGATIVE Urine Benzodiazepines Screen Neg NEGATIVE Urine Cocaine Screen Neg NEGATIVE Urine Cannabinoids Screen Neg NEGATIVE Test 06/01/24 05:05 06/01/24 02:55 06/01/24 01:02 05/31/24 22:36 Range/Units Influenza Type A Antigen Negative Negative Influenza Type B Antigen Negative Negative SARS-CoV-2 Antigen (Rapid) Negative NEGATIVE Hemoglobin A1c 5.3 <5.7 % A1C Magnesium Level 2.5 1.6-2.6 mg/dL Total Bilirubin 0.3 0.2-1.0 mg/dL Aspartate Amino Transferase (AST) 39 13-40 U/L Alanine Aminotransferase (ALT) 14 7-40 U/L Alkaline Phosphatase 99 46-116 U/L Total Protein 7.8 5.7-8.2 g/dL Albumin 4.4 3.2-4.8 g/dL Triglycerides Level 147 < 150 mg/dL Cholesterol Level 227 H < 200 mg/dL LDL Cholesterol 165 H < 100 mg/dL HDL Cholesterol 37 L 40-59 mg/dL Vitamin B12 Level 390 211-911 pg/mL Vitamin D 25-Hydroxy 10.9 L 30.0-100 ng/mL Thyroid Stimulating Hormone (TSH) 0.71 0.55-4.78 uIU/mL Blood Gas EPAP 5 Blood Gas IPAP 12 B-Type Natriuretic Peptide 604.23 0-100 pg/mL Microbiology Date/Time Source Procedure Growth Status 06/02/24 03:30 Nose MRSA Screen - Final Complete 06/01/24 13:21 Sputum Gram Stain - Preliminary Resulted 06/01/24 13:21 Sputum Respiratory Culture - Preliminary Resulted 06/01/24 05:07 Urine - [place] Urine Culture - Preliminary Resulted 06/01/24 00:55 Blood Blood Culture - Preliminary NO GROWTH AFTER 24 HOURS OF INCUBATION. Resulted Assessment Impression: Acute hypoxic respiratory failure On mechanical ventilator Non-ST elevation NM Obesity Hyperglycemia Plan: s/p intubation on mechanical ventilator. CXR image and report reviewed. Devices in place. On AC mode; RR 26, VT 400, PEEP 5, FiO2 35% Titrate FIO2 to keep O2 saturation above 90%. VAP bundle. Daily ABG and CXR while intubated Sedate for ventilator synchrony ABG reviewed, alkalemia. Decrease RR to 20 On heparin drip Follow up Cardiology recommendations Follow up Echocardiogram Plan for C Continue antibiotics. F/u cultures. Accu-Cheks, ISS. Pressors as necessary for hemodynamic support Titrate to keep mean arterial pressure greater than 65 mmHg. Monitor renal function Monitor electrolytes. Supplement as necessary. Monitor ins and outs. Maintain euvolemia. GI prophylaxis. DVT prophylaxis. Prognosis: Poor given patient's multiple co-morbidities. Condition: Critical Rest of plan per hospitalist and other consultants. A total of 36 minutes of critical care time was spent reviewing the patient record, examining the patient, making a diagnostic and therapeutic plan, discussing this plan with the medical personnel, following up on diagnostic studies and following the patient for clinical stability excluding any and all procedures. At least 50% of this time was spent in direct, [id number] contact. Thank you, Dr. Rose, for allowing me to participate in this patient's care. Further recommendations will depend on the patient's clinical course. Please do not hesitate to contact me if you have any questions or concerns. This medical document was created using an electronic medical record system with [employer] dictation system. Although these documentations are being carefully reviewed, there may still be some phonetic and typographical changes. The errors are purely typographical, due to imperfection on the software program, and do not reflect any compromise in the patient's medical care. Plan discussed with: Other (REYNALDO Cleary/Dr. Rose) TOBIN COLE MD Jun 02, 2024 22:48
[2024-06-03] VITALS (60 sets, daily range): BP systolic 81–130; BP diastolic 35–58; PULSE 79–106; RESP 17–22; TEMP 98.2–100.4; O2SAT 95–100
[2024-06-03 03:23] LABS: Alanine Aminotransferase 17 U/L (7-40); Alkaline Phosphatase 70 U/L (46-116); Anion Gap 18 (5-15); BUN/Creatinine Ratio 13.3 (10.0-20.0); Potassium 4.3 mmol/L (3.5-5.1); Sodium 144 mmol/L (136-145); Total Protein 5.9 g/dL (5.7-8.2)
[2024-06-03 03:24] LABS: Albumin 3.3 g/dL (3.2-4.8); Bilirubin, Total 0.3 mg/dL (0.2-1.0)
[2024-06-03 03:29] LABS: INR 1.04 (0.9-1.15); Partial Thromboplastin Time 57.8 SEC (24.5-34.5)
[2024-06-03 03:32] LABS: Basophils # (auto) 0.1 10 ^3/uL (0-0.2); Lymphocytes # (auto) 1.6 10 ^3/uL (0.4-5.4); Mean Corpuscular Volume 87.4 fL (80.0-100.0); Nucleated Red Blood Cells % 0.3 %
[2024-06-03 03:33] LABS: Aspartate Aminotransferase 72 U/L (13-40); Basophils % (auto) 0.7 % (0.0-2.0); Calcium 8.5 mg/dL (8.7-10.4); Carbon Dioxide 14 mmol/L (20-31); Chloride 112 mmol/L (98-107); Eosinophils # (auto) 0 10 ^3/uL (0-0.8); Eosinophils % (auto) 0.3 % (0.0-7.0); Glucose 114 mg/dL (74-106); Hematocrit 21.1 % (36.0-46.0); Lymphocytes % (auto) 10.1 % (10.0-50.0); Mean Corpuscular Hemoglobin 28.2 pg (28.0-32.0); Mean Corpuscular Hgb Conc. 32.3 g/dL (32.0-36.0); Monocytes # (auto) 0.9 10 ^3/uL (0-1.3); Monocytes % (auto) 5.7 % (0.0-12.0); Neutrophils # (auto) 13.6 10 ^3/uL (1.6-8.6); Neutrophils % (auto) 83.2 % (37.0-80.0); Platelet Count (auto) 228 10^3/uL (140-450); Red Blood Cells 2.42 10^6/uL (4.0-5.20); Red Cell Distribution Width 14.3 % (11.8-14.3); White Blood Cell 16.3 10^3/uL (4.4-10.8)
[2024-06-03 03:35] LABS: Blood Urea Nitrogen 109 mg/dL (9-23)
[2024-06-03 03:36] LABS: Hemoglobin 6.8 g/dL (12.2-16.2)
[2024-06-03 03:56] LABS: Large Platelets FEW; Platelet Estimate Adequa
[2024-06-03 06:26] LABS: Base Excess -13.2 mmol/L (-2.0-3.0)
--- NOTE | 2024-06-03 06:38 | DVH ---
CHEST RADIOGRAPH Indication: INTUBATED Technique: Single frontal view of the chest was obtained COMPARISON: XY CHEST XRAY 1 VIEW on DOS: 06/02/24, XY CHEST PORTABLE on DOS: 06/01/24, XY CHEST XRAY 1 VIEW on DOS: 06/01/24, XY CHEST XRAY 1 VIEW on DOS: 06/01/24, XY CHEST PORTABLE on DOS: 05/31/24 FINDINGS: Lines and Tubes: Endotracheal tube and enteric catheter in satisfactory position. Lungs: Severe multifocal airspace disease Pleura: No effusion. No pneumothorax. Cardiomediastinal contours: Unremarkable Bones: Unremarkable IMPRESSION: Lines and tubes in satisfactory position. No significant interval change.
[2024-06-03] MEDS: SODIUM BICARB 8.4% 50Meq/50ml SYR Vial IV ONE (07:57)
[2024-06-03] MEDS: PROPOFOL 100 ML IV SCH (08:35)
[2024-06-03] MEDS: ASPirin 81 mg TAB GT SCH (11:00)
--- NOTE | 2024-06-03 12:54 | DVHPN2 ---
Progress Note - Dictate Date Seen: Jun 03, 2024 Medical Necessity Reason Pt with a Central, PICC or Fol: Yes The following are medically ne: Central Line, Paz Catheter Subjective Patient's daughter and granddaughter at bedside vital signs Vital Sign Date Time Temp Pulse Resp B/P (MAP) Pulse Ox O2 Delivery O2 Flow Rate FiO2 06/03/24 12:37 101/45 06/03/24 10:03 87 20 100 35 06/03/24 07:20 Mechanical Ventilator+ 06/03/24 07:20 99.1 99.1 06/01/24 07:49 6 Total Intake and Output 06/02/24 06/02/24 06/03/24 15:00 23:00 07:00 Intake Total 998 ml 1127.0 ml 1045.000 ml Output Total 150 ml 200 ml Balance 998 ml 977.0 ml 845.000 ml medications Current Medications Medications Dose Ordered Sig/[place] Route Start Time Stop Time Status Last Admin Dose Admin Pantoprazole Sodium 40 mg DAILY IV 06/01/24 10:00 06/03/24 10:24 40 MG Insulin Glargine 15 units DAILY SC 06/02/24 10:00 Cancel Ipratropium [place] 0.5 mg Q4HR NEB 06/01/24 10:00 06/03/24 10:03 0.5 MG Levalbuterol HCl 0.625 mg Q4HR NEB 06/01/24 10:00 06/03/24 10:03 0.625 MG Doxycycline Hyclate 100 ml @ 50 mls/hr Q12H IV 06/01/24 08:30 06/03/24 09:01 50 MLS/HR Meropenem 50 ml @ 17 mls/hr DAILY IV 06/02/24 10:00 06/03/24 12:41 17 MLS/HR Midazolam HCl 50 ml @ 1 mls/hr Q24H IV 06/01/24 13:15 06/03/24 12:37 15 MLS/HR Fentanyl Citrate 250 ml @ 2.5 mls/hr Q24H IV 06/01/24 13:15 06/03/24 09:51 27.5 MLS/HR Diagnostic Test (Pha) 1 strip IQ4HR 06/01/24 16:00 06/03/24 12:20 1 STRIP Insulin Human Regular IQ4HR SC 06/01/24 16:00 06/03/24 04:56 2 UNITS Dextrose 50 ml UD PRN IV 06/01/24 13:30 Norepinephrine Bitartrate 16 mg/ Sodium Chloride 250 ml @ 1.875 mls/ hr Q24H IV 06/01/24 16:30 06/03/24 01:04 1.875 MLS/HR Acetaminophen 650 mg Q6HP PRN PO 06/02/24 04:15 06/02/24 23:58 650 MG Heparin Sodium/ Dextrose 250 ml @ 7 mls/hr Q24H IV 06/02/24 11:00 06/03/24 11:00 7 MLS/HR Sodium Chloride 1,000 ml @ 100 mls/hr Q10H IV 06/02/24 12:45 06/03/24 02:30 100 MLS/HR Propofol 100 ml @ 2.1 mls/hr Q24H IV 06/03/24 07:00 06/03/24 08:35 2.1 MLS/HR Aspirin 81 mg DAILY GT 06/03/24 11:00 06/03/24 11:00 81 MG Atorvastatin Calcium 40 mg HS GT 06/03/24 22:00 objective Gen: nad, elderly female, intubated heent: nc/at, lungs: Occasional rhonchi cvs: no rub abd: soft, bowel sounds audible ext: + edema skin: no rash laboratory and microbiology Laboratory Tests 06/03/24 02:55 Test 06/03/24 02:55 Range/Units Serum Glucose 114 H 74-106 mg/dL Assessment/Plan IMP: 1) hemodynamically mediated acute kidney injury, possible ischemic ATN 2) NSTEMI 3) acute anemia 4) acute hypoxemic respiratory failure 5) DM II 6) AGMA - possible uremic acidosis REC: - initiation of dialysis for solute removal - noted plans for possible left heart catheterization tomorrow - discussed risks and benefits of dialysis and kidney replacement therapy with patient's daughter and patient's granddaughter. Patient's daughter currently has been designated as power of defense attorney for Healthcare per her family, and agrees to pursue Dialysis treatments for the patient. Plan discussed with: Daughter CC Plasma Assessment Blood Product Administration S: 16:05 COOPER LOPEZ MD Jun 03, 2024 12:54
--- NOTE | 2024-06-03 18:12 | DVHPN2 ---
Subjective Patient was a 74-year-old female with a past medical history of type 2 diabetes mellitus, hypertension, hyperlipidemia presented to the ED with a chief complaint of chest pain. Patient reports that with the chest pain started 2 weeks ago while she was in [place] but was intermittent, left-sided/retrosternal which was [id number] in intensity which she acknowledged following which she came to the [facility] about a week ago. On Tuesday, patient started to have worsening chest pain which was radiating to the left arm and associated with dyspnea. Last night patient's chest pain increased in intensity to 10/10 following which she came to the ED. patient denied having fever or chills, had episodes of cough but denied any phlegm. Patient did not have any sick contacts. As the patient does not have teeth she has been eating pureed diet, denies any episode of syncope or loss of consciousness or aspiration. Past medical history: Type 2 diabetes mellitus, hypertension, hyperlipidemia Past surgical history: 1 C section Social history: Patient lives with her son in [place] and is currently visiting her daughter lives in [facility], denies smoking, alcohol or drug use Home medications: Amlodipine 5 mg, valsartan 160 mg, hydrochlorothiazide 12.5 mg, dapagliflozin 10 mg, aspirin 81 mg Review of systems Patient seen and examined at the bedside, intubated, ventilated, no vasopressor Reviewed: H&P Changes from previous H/P or p: No Changes General: Per HPI Objective Vitals Vital Signs Date Time Temp Pulse Resp B/P (MAP) Pulse Ox O2 Delivery O2 Flow Rate FiO2 06/03/24 17:34 98.2 87 20 119/50 98.2 06/03/24 16:13 98 30 06/03/24 07:20 Mechanical Ventilator+ 06/01/24 07:49 6 Intake/Output Intake and Output 06/03/24 07:00 Intake Total 3170.000 ml Output Total 350 ml Balance 2820.000 ml Intake Oral 60 ml IV Total 3110.000 ml Output Urine Total 350 ml Exam Constitutional: Patient is sedated and on mechanical ventilation with RASS -3 Gen - mild conjunctival pallor, no icterus, no cyanosis, no clubbing, no LAD, no pedal edema. Skin - Patients skin is warm and dry. HEENT - normocephalic, atraumatic, dry mucous membranes. Neck - full ROM, no LAD, no JVD Pulmonary - B/L diffuse coarse inspiratory crackles, no wheezing, no stridor. cardiovascular - Regular S1,S2 heard, no added sounds, no murmurs heard. capillary refill normal <2 secs. GI - soft, nontender abdomen. no hepatospleenomegaly. Bowel sounds normoactive Neurological -on mechanical ventilation, pupils equal and reactive, gag reflex present Cardiovascular: Regular rate, Normal S1, Normal S2 Medications Current Medications Medications Dose Ordered Sig/[place] Route Start Time Stop Time Status Last Admin Dose Admin Pantoprazole Sodium 40 mg DAILY IV 06/01/24 10:00 06/03/24 10:24 40 MG Insulin Glargine 15 units DAILY SC 06/02/24 10:00 Cancel Ipratropium [place] 0.5 mg Q4HR NEB 06/01/24 10:00 06/03/24 14:34 0.5 MG Levalbuterol HCl 0.625 mg Q4HR NEB 06/01/24 10:00 06/03/24 14:34 0.625 MG Doxycycline Hyclate 100 ml @ 50 mls/hr Q12H IV 06/01/24 08:30 06/03/24 09:01 50 MLS/HR Meropenem 50 ml @ 17 mls/hr DAILY IV 06/02/24 10:00 06/03/24 12:41 17 MLS/HR Midazolam HCl 50 ml @ 1 mls/hr Q24H IV 06/01/24 13:15 06/03/24 12:37 15 MLS/HR Fentanyl Citrate 250 ml @ 2.5 mls/hr Q24H IV 06/01/24 13:15 06/03/24 09:51 27.5 MLS/HR Diagnostic Test (Pha) 1 strip IQ4HR 06/01/24 16:00 06/03/24 16:14 1 STRIP Insulin Human Regular IQ4HR SC 06/01/24 16:00 06/03/24 16:17 2 UNITS Dextrose 50 ml UD PRN IV 06/01/24 13:30 Norepinephrine Bitartrate 16 mg/ Sodium Chloride 250 ml @ 1.875 mls/ hr Q24H IV 06/01/24 16:30 06/03/24 01:04 1.875 MLS/HR Acetaminophen 650 mg Q6HP PRN PO 06/02/24 04:15 06/02/24 23:58 650 MG Heparin Sodium/ Dextrose 250 ml @ 7 mls/hr Q24H IV 06/02/24 11:00 06/03/24 11:00 7 MLS/HR Sodium Chloride 1,000 ml @ 100 mls/hr Q10H IV 06/02/24 12:45 06/03/24 02:30 100 MLS/HR Propofol 100 ml @ 2.1 mls/hr Q24H IV 06/03/24 07:00 06/03/24 08:35 2.1 MLS/HR Aspirin 81 mg DAILY GT 06/03/24 11:00 06/03/24 11:00 81 MG Atorvastatin Calcium 40 mg HS GT 06/03/24 22:00 Laboratory Results Laboratory Tests 06/03/24 02:55 Chemistry Test 06/03/24 02:55 Albumin 3.3 g/dL (3.2-4.8) Calcium Level 8.5 mg/dL (8.7-10.4) L Total Protein 5.9 g/dL (5.7-8.2) Coagulation Test 06/02/24 20:20 06/03/24 02:55 Prothrombin Time 11.2 sec (9.3-11.8) 11.0 sec (9.3-11.8) Prothrombin Time INR 1.06 (0.9-1.15) 1.04 (0.9-1.15) Activated Partial Thromboplast Time 69.3 SEC (24.5-34.5) H 57.8 SEC (24.5-34.5) H LFT Test 06/03/24 02:55 Alanine Aminotransferase (ALT) 17 U/L (7-40) Alkaline Phosphatase 70 U/L (46-116) Aspartate Amino Transferase (AST) 72 U/L (13-40) H Total Bilirubin 0.3 mg/dL (0.2-1.0) Urinalysis Test 06/01/24 05:07 Urine Color Colorless (Yellow) Urine Clarity Clear (Clear) Urine pH 6.0 (5.0-9.0) Urine Specific [place] 1.012 (1.001-1.035) Urine Protein 2+ (Negative) H Urine Ketones Negative (Negative) Urine Blood 1+ /uL (Negative) H Urine Nitrite Negative (Negative) Urine Bilirubin Negative (Negative) Urine Urobilinogen Normal mg/dL (Negative) Urine Leukocyte Esterase Negative /uL (Negative) Urine RBC 2 /hpf (0 - 4) Urine Microscopic WBC 17 /HPF (0-5) H Urine Squamous Epithelial Cells Few /hpf (<5) Urine Bacteria None seen /hpf (None Seen) Urine Osmolality 382 mOsm/kg Urine Random Microalbumin 2548.9 ug/mL (Not Estab.) Urine Creatinine 44.36 mg/dL (30.0-125.0) Urine Protein/Creatinine Ratio 8.53 Urine Sodium 49 mmol/L (40-220) Urine Glucose 4+ mg/dL (Normal) H Urine Total Protein 378.6 mg/dL (1-14) H Blood Gas Results Test 06/03/24 06:20 Arterial Blood pH 7.241 (7.350-7.450) FiO2 % 35.0 Microbiology Microbiology Date/Time Source Procedure Growth Status 06/02/24 03:30 Nose MRSA Screen - Final Complete 06/01/24 13:21 Sputum Gram Stain - Final Complete 06/01/24 13:21 Sputum Respiratory Culture - Final Complete 06/01/24 05:07 Urine - [place] Urine Culture - Final Complete 06/01/24 00:55 Blood Blood Culture - Preliminary Resulted Labs and/or images reviewed: Labs reviewed by me, Image(s) reviewed by me Assessment/Plan Assessment/Plan Update 06/03 06/02 round at bedside with RN. Nephrology recently seen patient. Patient making minimal urine. We will try fluid challenge. Vent settings are stable with ABG stable. Patient was status post 1 unit packed RBC and hemoglobin holding well. Patient was left heart catheterization. Also getting patient antibiotics meropenem/doxycycline with source of pneumonia. Cardiology and nephrology following. 06/03 - round at bedside with RN. We tried the fluid bolus which has not improved urine output. Patient vitals become unstable with any sedation vacation and PULM consult is on for med management. Palm wants higher sedation to allow optimal vent management. Patient easily fights of went and vitals become unstable with any decrease sedation. Patient anemic again today requiring another unit of blood we will get retic count to ensure it is not marrow related. Patient had significant Troponinemia with abnormal EKG in left heart catheterization is pending stabilization and clearance with nephro. Continue IV antibiotics for possible pneumonia meropenem/doxy Neurology # Acute metabolic encephalopathy likely due to uremia # S/p Mechanical ventilation - sedated with fentanyl and midazolam - RASS -4 Respiratory # Acute hypoxic respiratory failure likely d/t acute CHF # B/L acute pulmonary edema # Sepsis likely due to pneumonia with Gram +/- bacteria # ?ARDS - On mechanical ventilation with PEEP 5, Vt- 400ml, FiO2- 70%, RR 22 - one dose of lasix 60mg IV given, will monitor for urine output and aggressive diuresis to be avoided as the patient is volume depleted with underlying sepsis - IV meropenam and doxycycline for broad spectrum coverage - sputum cultures pending Cardiovascular # NSTEMI likely type I # acute congestive heart failure - EKG shows ST elevation in aVr, STd in I,II,V5,V6 - troponins uptrending - on heparin drip - atorvastatin and aspirin - cardiology consultation for possible angiographic evaluation - POCUS revealed collapsible IVC and patient given fluids - ECHO shows right ventricular strain Nephrology # Anion Gap Metabolic acidosis likely due to uremia/lactic acidosis with sepsis # severe ROSSY on CKD likely d/t sepsis causing ATN # Lactic acidosis # DKA less likely - 100Meq sodium bicarb given - ABG reviewed shows metabolic acidosis - serum bicarb and anion gap improving - insulin drip but discontinued - responds to fluid challenge with improvement in lactic acid - nephrology on board Hematology # severe acute anemia - stool occult blood negative - given one unit PRBC, 1x 06/03, - monitor H&H Infectious disease # Sepsis likely d/t pneumonia - IV meropenam and doxycycline for broad spectrum coverage - sputum cultures pending Goals of care discussed with the daughter for over 27 mins. Full code Lines right femoral TLC- inserted on 06/01 intubated- 06/01 dixon cath- 06/01 critical care time spent excluding procedures: 51 mins Plan discussed with: Patient Date of Service: Jun 03, 2024 Billing Provider: SHARON PINK MD Common Visit Codes: 12069-[id number] CARE 30-74 MIN SHARON PINK MD Jun 03, 2024 18:12
[2024-06-03] MEDS: ATORVASTATIN 20 MG TAB GT SCH (21:42)
--- NOTE | 2024-06-03 21:44 | DVHPN2 ---
Progress Note - Dictate Date Seen: Jun 03, 2024 Medical Necessity Reason Pt with a Central, PICC or Fol: Yes The following are medically ne: Central Line, Paz Catheter Subjective Patient was seen and evaluated in follow-up in the ICU. Patient is intubated and sedated on ventilator. 30% FiO2. Family is at bedside. WBC 16.3, HGB 6.8, HCT 21.1, PTT 57.8. vital signs Vital Sign Date Time Temp Pulse Resp B/P (MAP) Pulse Ox O2 Delivery O2 Flow Rate FiO2 06/03/24 17:34 98.2 87 20 119/50 98.2 06/03/24 16:13 98 30 06/03/24 07:20 Mechanical Ventilator+ 06/01/24 07:49 6 Total Intake and Output 06/02/24 06/02/24 06/03/24 15:00 23:00 07:00 Intake Total 998 ml 1127.0 ml 1045.000 ml Output Total 150 ml 200 ml Balance 998 ml 977.0 ml 845.000 ml medications Current Medications Medications Dose Ordered Sig/[place] Route Start Time Stop Time Status Last Admin Dose Admin Pantoprazole Sodium 40 mg DAILY IV 06/01/24 10:00 06/03/24 10:24 40 MG Insulin Glargine 15 units DAILY SC 06/02/24 10:00 Cancel Ipratropium [place] 0.5 mg Q4HR NEB 06/01/24 10:00 06/03/24 14:34 0.5 MG Levalbuterol HCl 0.625 mg Q4HR NEB 06/01/24 10:00 06/03/24 14:34 0.625 MG Doxycycline Hyclate 100 ml @ 50 mls/hr Q12H IV 06/01/24 08:30 06/03/24 09:01 50 MLS/HR Meropenem 50 ml @ 17 mls/hr DAILY IV 06/02/24 10:00 06/03/24 12:41 17 MLS/HR Midazolam HCl 50 ml @ 1 mls/hr Q24H IV 06/01/24 13:15 06/03/24 12:37 15 MLS/HR Fentanyl Citrate 250 ml @ 2.5 mls/hr Q24H IV 06/01/24 13:15 06/03/24 09:51 27.5 MLS/HR Diagnostic Test (Pha) 1 strip IQ4HR 06/01/24 16:00 06/03/24 16:14 1 STRIP Insulin Human Regular IQ4HR SC 06/01/24 16:00 06/03/24 16:17 2 UNITS Dextrose 50 ml UD PRN IV 06/01/24 13:30 Norepinephrine Bitartrate 16 mg/ Sodium Chloride 250 ml @ 1.875 mls/ hr Q24H IV 06/01/24 16:30 06/03/24 01:04 1.875 MLS/HR Acetaminophen 650 mg Q6HP PRN PO 06/02/24 04:15 06/02/24 23:58 650 MG Heparin Sodium/ Dextrose 250 ml @ 7 mls/hr Q24H IV 06/02/24 11:00 06/03/24 11:00 7 MLS/HR Sodium Chloride 1,000 ml @ 100 mls/hr Q10H IV 06/02/24 12:45 06/03/24 02:30 100 MLS/HR Propofol 100 ml @ 2.1 mls/hr Q24H IV 06/03/24 07:00 06/03/24 08:35 2.1 MLS/HR Aspirin 81 mg DAILY GT 06/03/24 11:00 06/03/24 11:00 81 MG Atorvastatin Calcium 40 mg HS GT 06/03/24 22:00 objective GENERAL: Il appearing, intubated on ventilator. EYES: PERRL, EOMI. Anicteric. HENT: Moist mucous membranes. LUNGS: Decreased breath sounds. CARDIOVASCULAR: Regular rate and rhythm. ABDOMEN: Soft, nontender and nondistended. EXTREMITIES: No edema. SKIN: Warm, dry. laboratory and microbiology Laboratory Tests 06/03/24 02:55 Test 06/03/24 02:55 Range/Units Serum Glucose 114 H 74-106 mg/dL Problem List NSTEMI, rule out type 1. Rule out structural heart disease. Hypertensive emergency, resolved. Dyslipidemia. Sepsis. DKA. Acute kidney injury. Hyperkalemia. Assessment/Plan Continued all current supportive medical care. Aspirin, Lipitor. Heparin drip per pharmacy. GI prophylactics. Vasopressors for hemodynamic support. IV antibiotics as ordered. Additional plan as per the hospital course. Critical care time of 45 minutes provided to include time spent evaluation of patient at bedside, when appropriate patient/family education for diagnosis, treatment plan, review of pertinent medical information and discussion of care with specialty providers and PCP. Mechanical ventilator parameters, treatment and adjustments have personally been reviewed by me and treatment plan by plastic process technician has also been reviewed. Plan discussed with: Other CC Plasma Assessment Blood Product Administration S: [id number] BRADEN RIVERA MD Jun 03, 2024 18:34
--- NOTE | 2024-06-03 23:49 | DVHPN2 ---
Progress Note - Dictate Date Seen: Jun 03, 2024 Medical Necessity Reason Pt with a Central, PICC or Fol: Yes The following are medically ne: Central Line, Dixon Catheter Reason for dixon catheter: Strict I&O Subjective Patient seen and examined at bedside. Sedated, intubated on mechanical ventilator. Overnight events reviewed. vital signs Vital Sign Date Time Temp Pulse Resp B/P (MAP) Pulse Ox O2 Delivery O2 Flow Rate FiO2 06/03/24 23:30 98.6 88 20 119/58 (78) 97 209.5 06/03/24 22:00 Mechanical Ventilator+ 30 30 06/01/24 07:49 6 Total Intake and Output 06/02/24 06/02/24 06/03/24 15:00 23:00 07:00 Intake Total 998 ml 1127.0 ml 1045.000 ml Output Total 150 ml 200 ml Balance 998 ml 977.0 ml 845.000 ml medications Current Medications Medications Dose Ordered Sig/[place] Route Start Time Stop Time Status Last Admin Dose Admin Pantoprazole Sodium 40 mg DAILY IV 06/01/24 10:00 06/03/24 10:24 40 MG Insulin Glargine 15 units DAILY SC 06/02/24 10:00 Cancel Ipratropium [place] 0.5 mg Q4HR NEB 06/01/24 10:00 06/03/24 21:52 0.5 MG Levalbuterol HCl 0.625 mg Q4HR NEB 06/01/24 10:00 06/03/24 21:52 0.625 MG Doxycycline Hyclate 100 ml @ 50 mls/hr Q12H IV 06/01/24 08:30 06/03/24 20:39 50 MLS/HR Meropenem 50 ml @ 17 mls/hr DAILY IV 06/02/24 10:00 06/03/24 12:41 17 MLS/HR Midazolam HCl 50 ml @ 1 mls/hr Q24H IV 06/01/24 13:15 06/03/24 21:39 15 MLS/HR Fentanyl Citrate 250 ml @ 2.5 mls/hr Q24H IV 06/01/24 13:15 06/03/24 19:09 27.5 MLS/HR Diagnostic Test (Pha) 1 strip IQ4HR 06/01/24 16:00 06/03/24 20:19 1 STRIP Insulin Human Regular IQ4HR SC 06/01/24 16:00 06/03/24 16:17 2 UNITS Dextrose 50 ml UD PRN IV 06/01/24 13:30 Norepinephrine Bitartrate 16 mg/ Sodium Chloride 250 ml @ 1.875 mls/ hr Q24H IV 06/01/24 16:30 06/03/24 01:04 1.875 MLS/HR Acetaminophen 650 mg Q6HP PRN PO 06/02/24 04:15 06/02/24 23:58 650 MG Heparin Sodium/ Dextrose 250 ml @ 7 mls/hr Q24H IV 06/02/24 11:00 06/03/24 20:03 7 MLS/HR Sodium Chloride 1,000 ml @ 100 mls/hr Q10H IV 06/02/24 12:45 06/03/24 18:45 100 MLS/HR Propofol 100 ml @ 2.1 mls/hr Q24H IV 06/03/24 07:00 06/03/24 08:35 2.1 MLS/HR Aspirin 81 mg DAILY GT 06/03/24 11:00 06/03/24 11:00 81 MG Atorvastatin Calcium 40 mg HS GT 06/03/24 22:00 06/03/24 21:42 40 MG objective Gen.: Patient lying in bed in medical ICU. Sedated, intubated on mechanical ventilator. Head: Normocephalic, atraumatic. Eyes: PERRLA. Ears: Normal external anatomy. Throat: Endotracheal tube and orogastric tube in place. Neck: Supple, trachea midline. Chest: Transmitted breath sounds bilaterally. Decreased air entry bilaterally. No wheezing. Bibasilar crackles. Cardiovascular: Positive S1, positive S2. Regular rate and rhythm. Abdomen: Positive bowel sounds in all 4 quadrants. Soft, nontender, nondistended. : Dixon in place. Normal external genitalia. Rectal: Deferred. Skin: Warm, dry. Intact. Extremities: 2+ radial pulses bilaterally. No lower extremity edema. Neuro: Sedated. laboratory and microbiology Laboratory Tests 06/03/24 02:55 Test 06/03/24 02:55 Range/Units Serum Glucose 114 H 74-106 mg/dL Assessment/Plan Impression: Acute hypoxic respiratory failure On mechanical ventilator Non-ST elevation HI Obesity Hyperglycemia Events: Remains on vent support On AC mode; RR 20, VT 400, PEEP 5, FiO2 30% Sedated on Propofol, Versed, Fentanyl On heparin drip. Off Levophed for 3 hours Monitor hemodynamics ABG reviewed, notable for acidemia CXR reviewed, notable for severe multifocal airspace disease. Devices in place. Labs and imaging reviewed. Rest of plan as noted below. Plan: s/p intubation on mechanical ventilator. On AC mode; RR 20, VT 400, PEEP 5, FiO2 30% Titrate FIO2 to keep O2 saturation above 90%. VAP bundle. Daily ABG and CXR while intubated Sedate for ventilator synchrony On heparin drip Follow up Cardiology recommendations Follow up Echocardiogram Plan for [facility] Continue antibiotics. F/u cultures. Accu-Cheks, ISS. Pressors as necessary for hemodynamic support Titrate to keep mean arterial pressure greater than 65 mmHg. Monitor renal function Monitor electrolytes. Supplement as necessary. Monitor ins and outs. Maintain euvolemia. GI prophylaxis. DVT prophylaxis. Prognosis: Poor given patient's multiple co-morbidities. Condition: Critical Rest of plan per hospitalist and other consultants. A total of 35 minutes of critical care time was spent reviewing the patient record, examining the patient, making a diagnostic and therapeutic plan, discussing this plan with the medical personnel, following up on diagnostic studies and following the patient for clinical stability excluding any and all procedures. At least 50% of this time was spent in direct, [id number] contact. Thank you, Dr. Rose, for allowing me to participate in this patient's care. Further recommendations will depend on the patient's clinical course. Please do not hesitate to contact me if you have any questions or concerns. This medical document was created using an electronic medical record system with [employer] dictation system. Although these documentations are being carefully reviewed, there may still be some phonetic and typographical changes. The errors are purely typographical, due to imperfection on the software program, and do not reflect any compromise in the patient's medical care. Plan discussed with: Other (REYNALDO Aceves) Critical Care Time(min): 35 CC Plasma Assessment Blood Product Administration S: 15:15 TOBIN COLE MD Jun 03, 2024 23:49
[2024-06-04] VITALS (108 sets, daily range): BP systolic 77–158; BP diastolic 33–69; PULSE 77–110; RESP 16–41; TEMP 96.8–98.8; O2SAT 88–100
[2024-06-04 03:54] LABS: Basophils # (auto) 0 10 ^3/uL (0-0.2); Basophils % (auto) 0.2 % (0.0-2.0); Eosinophils # (auto) 0 10 ^3/uL (0-0.8); Hematocrit 25.7 % (36.0-46.0); Hemoglobin 8.5 g/dL (12.2-16.2); Lymphocytes # (auto) 0.7 10 ^3/uL (0.4-5.4); Mean Corpuscular Hemoglobin 28.8 pg (28.0-32.0); Mean Corpuscular Volume 87.5 fL (80.0-100.0); Monocytes # (auto) 0.7 10 ^3/uL (0-1.3); Monocytes % (auto) 3.6 % (0.0-12.0); Neutrophils # (auto) 16.8 10 ^3/uL (1.6-8.6); Neutrophils % (auto) 92.2 % (37.0-80.0); Platelet Count (auto) 268 10^3/uL (140-450); Red Blood Cells 2.94 10^6/uL (4.0-5.20); Red Cell Distribution Width 15.5 % (11.8-14.3); White Blood Cell 18.2 10^3/uL (4.4-10.8)
[2024-06-04 04:06] LABS: INR 0.99 (0.9-1.15); Partial Thromboplastin Time 59.4 SEC (24.5-34.5); Prothrombin Time 10.5 sec (9.3-11.8)
--- NOTE | 2024-06-04 04:50 | DVH ---
CHEST RADIOGRAPH Indication: Intubated Technique: Single frontal view of the chest was obtained Comparison: XY CHEST PORTABLE on DOS: 06/03/24 FINDINGS: Lines and Tubes: The endotracheal tube terminates 3.0 cm above the nidia. The enteric tube terminat es in the stomach. Lungs: Bilateral airspace disease is similar to prior study. Pleura: No effusion. No pneumothorax. Cardiomediastinal contours: Unremarkable Bones: No acute osseous abnormality. IMPRESSION: 1. No significant interval change.
[2024-06-04 05:38] LABS: Alanine Aminotransferase 25 U/L (7-40); Albumin 3.6 g/dL (3.2-4.8); Alkaline Phosphatase 89 U/L (46-116); Anion Gap 15 (5-15); BUN/Creatinine Ratio 13.3 (10.0-20.0); Sodium 144 mmol/L (136-145); Total Protein 6.3 g/dL (5.7-8.2)
[2024-06-04 05:39] LABS: Aspartate Aminotransferase 75 U/L (13-40); Bilirubin, Total 0.2 mg/dL (0.2-1.0); Calcium 8.7 mg/dL (8.7-10.4); Carbon Dioxide 18 mmol/L (20-31); Chloride 111 mmol/L (98-107); Glucose 155 mg/dL (74-106); Potassium 5.3 mmol/L (3.5-5.1)
[2024-06-04 05:40] LABS: Blood Urea Nitrogen 111 mg/dL (9-23)
[2024-06-04] MEDS: FUROSEMIDE 40 MG/4 ML VIAL IV ONE (06:22)
[2024-06-04 07:16] LABS: Base Excess -14.3 mmol/L (-2.0-3.0)
[2024-06-04] MEDS: SODIUM BICARB 8.4% 50Meq/50ml SYR Vial IV ONE (08:55)
[2024-06-04] MEDS: SODIUM BICARB 8.4% 50Meq/50ml SYR INJ ONE (09:08)
[2024-06-04 10:57] LABS: Base Excess -11.4 mmol/L (-2.0-3.0)
--- NOTE | 2024-06-04 11:19 | DVH ---
CHEST RADIOGRAPH Indication: verify dialysis cath placement Technique: Single frontal view of the chest was obtained Comparison: XY CHEST PORTABLE on DOS: 06/04/24, XY CHEST PORTABLE on DOS: 06/03/24, XY CHEST XRAY 1 VIE W on DOS: 06/02/24, XY CHEST PORTABLE on DOS: 06/01/24, XY CHEST XRAY 1 VIEW on DOS: 06/01/24, XY CHEST PORTABLE on DOS: 06/04/24 FINDINGS: Lines and Tubes: The endotracheal tube terminates 3.0 cm above the nidia. The enteric tube terminat es in the stomach. Right HD non tunneled HD catheter. Lungs: Bilateral airspace disease is similar to prior study. Pleura: No effusion. No pneumothorax. Cardiomediastinal contours: Unremarkable Bones: No acute osseous abnormality. IMPRESSION: 1. Right HD non tunneled HD catheter.
[2024-06-04 11:25] LABS: INR 0.97 (0.9-1.15); Prothrombin Time 10.3 sec (9.3-11.8)
[2024-06-04] MEDS: HEPARIN DRIP/D5W 100UNITS/ML 250 ML IV SCH ×2 (12:30→21:00)
--- NOTE | 2024-06-04 12:33 | CONS ---
Pharmacy Clinical Information: HEPARIN DRIP WAS STOPPED FOR A PROCEDURE. NEW APTT = 38.0 (SUBTHERAPEUTIC). RE-START HEPARIN DRIP AT RATE 800 UNITS/HR = 8 ML/HR APTT DRAW SCHEDULED FOR 1830 PER RX PROTOCOL. SKY NOBLES PHARMACIST Jun 04, 2024 12:33
--- NOTE | 2024-06-04 13:28 | DVHPN2 ---
Progress Note Date Seen: Jun 04, 2024 Medical Necessity Reason Pt with a Central, PICC or Fol: Yes The following are medically ne: Central Line (Temporary dialysis catheter), Dixon Catheter Reason for dixon catheter: Strict I&O Subjective Patient reports: Other (Temporary dialysis catheter placed) Review of Systems: Deferred Objective vital signs Vital Sign Date Time Temp Pulse Resp B/P (MAP) Pulse Ox O2 Delivery O2 Flow Rate FiO2 06/04/24 12:00 30 06/04/24 12:00 105 06/04/24 12:00 Mechanical Ventilator+ 06/04/24 11:28 28 107/47 (67) 97 06/04/24 11:15 98.4 209.1 Total Intake and Output 06/03/24 06/03/24 06/04/24 14:59 22:59 06:59 Intake Total 1143.750 ml 1903.025 ml 1130.625 ml Output Total 0 ml Balance 1143.750 ml 1903.025 ml 1130.625 ml medications Current Medications Medications Dose Ordered Sig/[place] Route Start Time Stop Time Status Last Admin Dose Admin Pantoprazole Sodium 40 mg DAILY IV 06/01/24 10:00 06/04/24 09:57 40 MG Insulin Glargine 15 units DAILY SC 06/02/24 10:00 Cancel Ipratropium [place] 0.5 mg Q4HR NEB 06/01/24 10:00 06/04/24 09:22 0.5 MG Levalbuterol HCl 0.625 mg Q4HR NEB 06/01/24 10:00 06/04/24 09:22 0.625 MG Doxycycline Hyclate 100 ml @ 50 mls/hr Q12H IV 06/01/24 08:30 06/04/24 09:07 50 MLS/HR Meropenem 50 ml @ 17 mls/hr DAILY IV 06/02/24 10:00 06/04/24 11:37 17 MLS/HR Midazolam HCl 50 ml @ 1 mls/hr Q24H IV 06/01/24 13:15 06/04/24 12:24 15 MLS/HR Fentanyl Citrate 250 ml @ 2.5 mls/hr Q24H IV 06/01/24 13:15 06/04/24 11:00 30 MLS/HR Diagnostic Test (Pha) 1 strip IQ4HR 06/01/24 16:00 06/04/24 11:45 1 STRIP Insulin Human Regular IQ4HR SC 06/01/24 16:00 06/04/24 08:59 2 UNITS Dextrose 50 ml UD PRN IV 06/01/24 13:30 Norepinephrine Bitartrate 16 mg/ Sodium Chloride 250 ml @ 1.875 mls/ hr Q24H IV 06/01/24 16:30 06/04/24 01:26 3.75 MLS/HR Acetaminophen 650 mg Q6HP PRN PO 06/02/24 04:15 06/02/24 23:58 650 MG Propofol 100 ml @ 2.1 mls/hr Q24H IV 06/03/24 07:00 06/04/24 04:12 10.5 MLS/HR Aspirin 81 mg DAILY GT 06/03/24 11:00 06/04/24 09:57 81 MG Atorvastatin Calcium 40 mg HS GT 06/03/24 22:00 06/03/24 21:42 40 MG Norepinephrine Bitartrate 32 mg/ Sodium Chloride 250 ml @ 0.938 mls/ hr Q24H IV 06/04/24 08:30 Enteral Nutritional Formula 1,000 ml 30ML/HR GT 06/04/24 09:15 Heparin Sodium/ Dextrose 250 ml @ 8 mls/hr Q24H IV 06/04/24 12:30 06/04/24 12:30 8 MLS/HR Examination: GENERAL:Abnormal, LUNGS:Abnormal, CVS:Abnormal, SKIN:Abnormal laboratory and microbiology Laboratory Tests 06/04/24 03:15 Test 06/04/24 03:15 Range/Units Serum Glucose 155 H 74-106 mg/dL Microbiology Date/Time Source Procedure Growth Status 06/02/24 03:30 Nose MRSA Screen - Final Complete 06/01/24 13:21 Sputum Gram Stain - Final Complete 06/01/24 13:21 Sputum Respiratory Culture - Final Complete 06/01/24 05:07 Urine - [place] Urine Culture - Final Complete 06/01/24 00:55 Blood Blood Culture - Final Complete Problem List/Assessment/Plan Problem List/Assessment/Plan Acute kidney injury in the setting of hemodynamic instability Chronic kidney disease unspecified baseline unknown Diastolic heart failure with severe pulmonary hypertension and severe mitral regurgitation Nephrotic range proteinuria History of hypertension and diabetes Acute respiratory failure Hemodialysis treatment today for metabolic and volume control Avoid hypotension Pressors to maintain mean arterial pressure greater than 65 Monitoring urinary output Guarded prognosis Critical care time spent 35 minutes Plan discussed with: Other My Orders My Orders Orders - JAYME LATIF MD Procedure Category Date Status Time Hepatitis B Surface LAB 06/04/24 In Process Antigen 12:33 Renetta; Comprehensive LAB 06/04/24 Logged Panel 13:02 Anca Panel LAB 06/04/24 Logged 13:02 Complement C3 & C4 LAB 06/04/24 Logged 13:02 Anti-Dsdna Antibody LAB 06/04/24 Logged 13:02 Erythrocyte LAB 06/04/24 In Process Sedimentation Rate 13:02 Dietary Evaluation Review Comments: 1. ROSSY, Reducet Nepro to 20ml/hr providing 39 gProtein 850 kcal supporting 95% protein needs and 76% energy needs 2. may increase TF Nepro to 25ml/hr (49 gPro, 1062 kcal)if pt is on dialysis. 3. Reassess protein and energy as needed. Expected Outcomes/Goals: Improve nutrition related lab values. CC Plasma Assessment Blood Product Administration S: 15:15 JAYME LATIF MD Jun 04, 2024 13:28
[2024-06-04] MEDS ORDERED: EPOETIN ALFA-EPBX 10,000 UNIT/1ML VIAL SC SCH (13:30)
[2024-06-04 14:11] LABS: Erythrocyte Sedimentation Rate 114 mm/hr (0-20)
[2024-06-04] MEDS: NOREPINEPHRINE BITARTRATE 32 MG in SODIUM CHL 0.9% 218 ML IV SCH (15:02)
[2024-06-04] MEDS: ALBUMIN 25% 100 ML IV ONE (15:12)
[2024-06-04] MEDS: InsuLIN REG 1unit/0.01ml Soln (100units/ml) SC SCH (18:00)
[2024-06-04] MEDS: ACCU-CHEK COMFORT CURVE STRIP VI SCH (18:04)
--- NOTE | 2024-06-04 19:37 | DVHNC2 ---
Central Line Recorder of insertion practice: Senior Sustainability Consultant Occupation of patent engineer: Attending Physician, Name of patent engineer (Dr. Gaytan) Indication: Other (Dialysis) Room prepared for procedure: Yes Senior Sustainability Consultant performed hand hygien: Yes Maximal sterile barrier precau: Mask/Eye shield, Sterile gown, Cap, Sterlie gloves, Large sterlie drape Skin Preparation: Chlorhexidine gluconate, Providine iodine Skin preparation completely dr: Yes Insertion site: Right, Internal jugular Central line catheter type: Dialysis non-tunneled Number of lumens: 2 Central line exchanged over a: No Antiseptic ointment applied to: No Post Assessment: Chest X-Ray, Proper placement, No Pneumothorax Informed consent obtained: Yes Risks/benefits/alt described: Yes Notes Supervised by Dr. Rios Date of Service: Jun 04, 2024 Billing Provider: ERNESTINA RIOS MD Common Visit Codes: PROCEDURE ONLY Procedure Codes: [id number] NON-TUNNEL CV CATH PAYTON SHAFFER Jun 04, 2024 19:37 ERNESTINA RIOS MD Jun 05, 2024 14:38
[2024-06-04 19:47] LABS: INR 0.99 (0.9-1.15); Prothrombin Time 10.5 sec (9.3-11.8)
[2024-06-04 20:03] LABS: Partial Thromboplastin Time 97.6 SEC (24.5-34.5)
--- NOTE | 2024-06-04 20:27 | DVHPNRES ---
Progress Note Date Seen: Jun 04, 2024 Resident Creating Document: MARIO SANDERS RESIDENT Medical Necessity Reason Pt with a Central, PICC or Fol: Yes The following are medically ne: Central Line (Temporary dialysis catheter), Dixon Catheter Reason for dixon catheter: Strict I&O Subjective Review of Systems Patient was a 74-year-old female with a past medical history of type 2 diabetes mellitus, hypertension, hyperlipidemia presented to the ED with a chief complaint of chest pain. Patient reports that with the chest pain started 2 weeks ago while she was in [place] but was intermittent, left-sided/retrosternal which was acdi-ga-huljxfki in intensity which she acknowledged following which she came to the [facility] about a week ago. On Tuesday, patient started to have worsening chest pain which was radiating to the left arm and associated with dyspnea. Last night patient's chest pain increased in intensity to 10/10 following which she came to the ED. patient denied having fever or chills, had episodes of cough but denied any phlegm. Patient did not have any sick contacts. As the patient does not have teeth she has been eating pureed diet, denies any episode of syncope or loss of consciousness or aspiration. Past medical history: Type 2 diabetes mellitus, hypertension, hyperlipidemia Past surgical history: 1 C section Social history: Patient lives with her son in [place] and is currently visiting her daughter lives in [facility], denies smoking, alcohol or drug use Home medications: Amlodipine 5 mg, valsartan 160 mg, hydrochlorothiazide 12.5 mg, dapagliflozin 10 mg, aspirin 81 mg Review of systems Patient seen and examined at the bedside On mechanical ventilation over the weekend patient had fever upto 100F and had low blood pressure was started on vasopressor support minimal urine output one unit of PRBC had to be given CXR shows Pulmonary vascular congestion and opacities in the upper lobes. Objective vital signs Vital Sign Date Time Temp Pulse Resp B/P (MAP) Pulse Ox O2 Delivery O2 Flow Rate FiO2 06/04/24 18:45 96.8 82 22 100 206.2 06/04/24 18:37 30 06/04/24 18:36 Mechanical Ventilator+ Total Intake and Output 06/03/24 06/03/24 06/04/24 15:00 23:00 07:00 Intake Total 1143.750 ml 2047.625 ml 1063.525 ml Output Total 0 ml Balance 1143.750 ml 2047.625 ml 1063.525 ml medications Current Medications Medications Dose Ordered Sig/[place] Route Start Time Stop Time Status Last Admin Dose Admin Pantoprazole Sodium 40 mg DAILY IV 06/01/24 10:00 06/04/24 09:57 40 MG Insulin Glargine 15 units DAILY SC 06/02/24 10:00 Cancel Ipratropium [place] 0.5 mg Q4HR NEB 06/01/24 10:00 06/04/24 18:35 0.5 MG Levalbuterol HCl 0.625 mg Q4HR NEB 06/01/24 10:00 06/04/24 18:35 0.625 MG Doxycycline Hyclate 100 ml @ 50 mls/hr Q12H IV 06/01/24 08:30 06/04/24 20:17 50 MLS/HR Meropenem 50 ml @ 17 mls/hr DAILY IV 06/02/24 10:00 06/04/24 11:37 17 MLS/HR Midazolam HCl 50 ml @ 1 mls/hr Q24H IV 06/01/24 13:15 06/04/24 12:24 15 MLS/HR Fentanyl Citrate 250 ml @ 2.5 mls/hr Q24H IV 06/01/24 13:15 06/04/24 11:00 30 MLS/HR Acetaminophen 650 mg Q6HP PRN PO 06/02/24 04:15 06/02/24 23:58 650 MG Propofol 100 ml @ 2.1 mls/hr Q24H IV 06/03/24 07:00 06/04/24 15:30 10.5 MLS/HR Aspirin 81 mg DAILY GT 06/03/24 11:00 06/04/24 09:57 81 MG Atorvastatin Calcium 40 mg HS GT 06/03/24 22:00 06/03/24 21:42 40 MG Norepinephrine Bitartrate 32 mg/ Sodium Chloride 250 ml @ 0.938 mls/ hr Q24H IV 06/04/24 08:30 06/04/24 15:02 4.688 MLS/HR Enteral Nutritional Formula 1,000 ml 30ML/HR GT 06/04/24 09:15 Iron Sucrose 110 ml @ 110 mls/hr DAILY@1200 IV 06/05/24 12:00 06/09/24 12:59 Epoetin Richar-epbx 10,000 unit MWF MT 06/04/24 13:30 Cancel Epoetin Richar-epbx 10,000 unit MWF@2100 MT 06/04/24 21:00 Diagnostic Test (Pha) 1 strip Q6HR 06/04/24 18:00 06/04/24 18:04 1 STRIP Insulin Human Regular Q6HR SC 06/04/24 18:00 Dextrose 50 ml UD PRN IV 06/04/24 14:45 Heparin Sodium/ Dextrose 250 ml @ 5 mls/hr Q24H IV 06/04/24 21:00 Examination Constitutional: Patient is sedated and on mechanical ventilation with RASS -4 Gen - mild conjunctival pallor, no icterus, no cyanosis, no clubbing, no LAD, no pedal edema. Skin - Patients skin is warm and dry. HEENT - normocephalic, atraumatic, dry mucous membranes. Neck - full ROM, no LAD, no JVD Pulmonary - B/L diffuse inspiratory crackles, no wheezing, no stridor. cardiovascular - Regular S1,S2 heard, no added sounds, no murmurs heard. capillary refill normal <2 secs. GI - soft, nontender abdomen. no hepatospleenomegaly. Bowel sounds normoactive Neurological -on mechanical ventilation, pupils equal and reactive, gag reflex present laboratory and microbiology Laboratory Tests 06/04/24 03:15 Test 06/04/24 03:15 Range/Units Serum Glucose 155 H 74-106 mg/dL Microbiology Date/Time Source Procedure Growth Status 06/02/24 03:30 Nose MRSA Screen - Final Complete 06/01/24 13:21 Sputum Gram Stain - Final Complete 06/01/24 13:21 Sputum Respiratory Culture - Final Complete 06/01/24 05:07 Urine - [place] Urine Culture - Final Complete 06/01/24 00:55 Blood Blood Culture - Final Complete Problem List/Assessment/Plan Problem List/Assessment/Plan Neurology # Acute metabolic encephalopathy likely due to uremia # S/p Mechanical ventilation - sedated with fentanyl and midazolam - RASS -4 Respiratory # Acute hypoxic respiratory failure likely d/t acute CHF # B/L acute pulmonary edema likely flash Pulmonary edema from Severe MR # ?Sepsis likely due to pneumonia with Gram +/- bacteria - On mechanical ventilation - IV meropenam and doxycycline for broad spectrum coverage - sputum cultures pending Cardiovascular # NSTEMI likely type I # acute congestive heart failure # Cardiogenic shock on vasopressor support - EKG shows ST elevation in aVr, STd in I,II,V5,V6 - troponins uptrending - on heparin drip - atorvastatin and aspirin - cardiology on board, likely cath tomorrow - ECHO shows mild LVH and mild LV diastolic dysfunction, LVEF 65%, mod-severe mitral regurgitation, severe Pulm. HTN, RVSP 67 mm hg Nephrology # Anion Gap Metabolic acidosis likely due to uremia # severe ROSSY on CKD likely d/t shock causing ATN # Lactic acidosis # DKA less likely - on sodium bicarb drip - ABG reviewed showed mixed metabolic and respiratory acidosis, increased the RR--> improved ABG - underwent dialysis today, removed 1.5L today - nephrology on board Hematology # severe acute anemia - stool occult blood negative - given two unit PRBCs - monitor H&H Goals of care discussed with the patient's grand-daughter for over 29 mins. Full code Lines right femoral TLC- inserted on 06/01 right IJ dialysis catheter inserted on 06/04 intubated- 06/01 dixon cath- 06/01 critical care time spent excluding procedures: 81 mins Plan discussed with Plan discussed with: Other (Granddaughter, RN ( Zunilda )) My Orders My Orders Orders - MARIO SANDERS Procedure Category Date Status Time * Picc Line Consult CONS 06/04/24 Transmitted 08:23 Nutritional PHA 06/04/24 In Process Supplements (Nepro 09:15 Dietary Evaluation Review Comments: 1. ROSSY, Reducet Nepro to 20ml/hr providing 39 gProtein 850 kcal supporting 95% protein needs and 76% energy needs 2. may increase TF Nepro to 25ml/hr (49 gPro, 1062 kcal)if pt is on dialysis. 3. Reassess protein and energy as needed. Expected Outcomes/Goals: Improve nutrition related lab values. CC Plasma Assessment Blood Product Administration S: 15:15 Date of Service: Jun 04, 2024 Billing Provider: ERNESTINA RIOS MD Common Visit Codes: [id number] CARE 30-74 MIN, [id number] CARE-EACH +30MIN MARIO SANDERS RESIDENT Jun 04, 2024 20:27 ERNESTINA RIOS MD Jun 05, 2024 14:37
[2024-06-04] MEDS: EPOETIN ALFA-EPBX 4,000 UNIT/ML VIAL SC SCH (20:46)
--- NOTE | 2024-06-04 23:09 | DVHPN2 ---
Progress Note - Dictate Date Seen: Jun 04, 2024 Medical Necessity Reason Pt with a Central, PICC or Fol: Yes The following are medically ne: Central Line (Temporary dialysis catheter), Dixon Catheter Reason for dixon catheter: Strict I&O Subjective Patient was seen and evaluated in follow-up in the ICU. Patient is intubated and sedated on ventilator. 30% FiO2. Has minimal urine output. Chest x-ray shows pulmonary vascular congestion and opacities in the upper lobes. WBC 18.2, HGB 8.5, HCT 25.7, BUN 111, Bookmaker'S Clerk 8.33, K 5.3. Patient still having low grade fevers. vital signs Vital Sign Date Time Temp Pulse Resp B/P (MAP) Pulse Ox O2 Delivery O2 Flow Rate FiO2 06/04/24 22:22 137/66 06/04/24 21:51 79 28 99 30 06/04/24 21:45 97.3 207.1 06/04/24 20:00 Mechanical Ventilator+ Total Intake and Output 06/03/24 06/03/24 06/04/24 15:00 23:00 07:00 Intake Total 1143.750 ml 2047.625 ml 1063.525 ml Output Total 0 ml Balance 1143.750 ml 2047.625 ml 1063.525 ml medications Current Medications Medications Dose Ordered Sig/[place] Route Start Time Stop Time Status Last Admin Dose Admin Pantoprazole Sodium 40 mg DAILY IV 06/01/24 10:00 06/04/24 09:57 40 MG Insulin Glargine 15 units DAILY SC 06/02/24 10:00 Cancel Ipratropium [place] 0.5 mg Q4HR NEB 06/01/24 10:00 06/04/24 21:50 0.5 MG Levalbuterol HCl 0.625 mg Q4HR NEB 06/01/24 10:00 06/04/24 21:51 0.625 MG Doxycycline Hyclate 100 ml @ 50 mls/hr Q12H IV 06/01/24 08:30 06/04/24 20:17 50 MLS/HR Meropenem 50 ml @ 17 mls/hr DAILY IV 06/02/24 10:00 06/04/24 11:37 17 MLS/HR Midazolam HCl 50 ml @ 1 mls/hr Q24H IV 06/01/24 13:15 06/04/24 22:22 6 MLS/HR Fentanyl Citrate 250 ml @ 2.5 mls/hr Q24H IV 06/01/24 13:15 06/04/24 11:00 30 MLS/HR Acetaminophen 650 mg Q6HP PRN PO 06/02/24 04:15 06/02/24 23:58 650 MG Propofol 100 ml @ 2.1 mls/hr Q24H IV 06/03/24 07:00 06/04/24 15:30 10.5 MLS/HR Aspirin 81 mg DAILY GT 06/03/24 11:00 06/04/24 09:57 81 MG Atorvastatin Calcium 40 mg HS GT 06/03/24 22:00 06/04/24 21:32 40 MG Norepinephrine Bitartrate 32 mg/ Sodium Chloride 250 ml @ 0.938 mls/ hr Q24H IV 06/04/24 08:30 06/04/24 15:02 4.688 MLS/HR Enteral Nutritional Formula 1,000 ml 30ML/HR GT 06/04/24 09:15 Iron Sucrose 110 ml @ 110 mls/hr DAILY@1200 IV 06/05/24 12:00 06/09/24 12:59 Epoetin Richar-epbx 10,000 unit MWF SC 06/04/24 13:30 Cancel Epoetin Richar-epbx 10,000 unit MWF@2100 SC 06/04/24 21:00 06/04/24 20:46 10,000 UNIT Diagnostic Test (Pha) 1 strip Q6HR 06/04/24 18:00 06/04/24 18:04 1 STRIP Insulin Human Regular Q6HR SC 06/04/24 18:00 Dextrose 50 ml UD PRN IV 06/04/24 14:45 Heparin Sodium/ Dextrose 250 ml @ 5 mls/hr Q24H IV 06/04/24 21:00 objective GENERAL: Il appearing, intubated on ventilator. EYES: PERRL, EOMI. Anicteric. HENT: Moist mucous membranes. LUNGS: Decreased breath sounds. CARDIOVASCULAR: Regular rate and rhythm. ABDOMEN: Soft, nontender and nondistended. EXTREMITIES: No edema. SKIN: Warm, dry. laboratory and microbiology Laboratory Tests 06/04/24 22:31 06/04/24 03:15 Test 06/04/24 03:15 Range/Units Serum Glucose 155 H 74-106 mg/dL Problem List NSTEMI, rule out type 1. Rule out structural heart disease. Hypertensive emergency, resolved. Dyslipidemia. Sepsis. DKA. Acute kidney injury. Hyperkalemia. Assessment/Plan Continued all current supportive medical care. Aspirin, Lipitor. Heparin drip per pharmacy. GI prophylactics. Vasopressors for hemodynamic support. IV antibiotics as ordered. Additional plan as per the hospital course. Critical care time of 45 minutes provided to include time spent evaluation of patient at bedside, when appropriate patient/family education for diagnosis, treatment plan, review of pertinent medical information and discussion of care with specialty providers and PCP. Mechanical ventilator parameters, treatment and adjustments have personally been reviewed by me and treatment plan by illusionist has also been reviewed. Dietary Evaluation Review Comments: 1. ROSSY, Reducet Nepro to 20ml/hr providing 39 gProtein 850 kcal supporting 95% protein needs and 76% energy needs 2. may increase TF Nepro to 25ml/hr (49 gPro, 1062 kcal)if pt is on dialysis. 3. Reassess protein and energy as needed. Expected Outcomes/Goals: Improve nutrition related lab values. Plan discussed with: Other CC Plasma Assessment Blood Product Administration S: 15:15 BRADEN RIVERA MD Jun 04, 2024 23:09
[2024-06-05] VITALS (109 sets, daily range): BP systolic 100–160; BP diastolic 52–86; PULSE 80–117; RESP 11–39; TEMP 97.2–99.9; O2SAT 85–100
[2024-06-05 04:25] LABS: Basophils # (auto) 0 10 ^3/uL (0-0.2); Eosinophils # (auto) 0 10 ^3/uL (0-0.8); Eosinophils % (auto) 0.2 % (0.0-7.0); Hemoglobin 7.5 g/dL (12.2-16.2); Lymphocytes # (auto) 1.1 10 ^3/uL (0.4-5.4); Mean Corpuscular Hemoglobin 29.9 pg (28.0-32.0); Monocytes # (auto) 0.5 10 ^3/uL (0-1.3); Nucleated Red Blood Cells % 0.2 %
[2024-06-05 04:27] LABS: Basophils % (auto) 0.1 % (0.0-2.0); Hematocrit 21.5 % (36.0-46.0); Lymphocytes % (auto) 10.2 % (10.0-50.0); Mean Corpuscular Hgb Conc. 34.8 g/dL (32.0-36.0); Mean Corpuscular Volume 85.8 fL (80.0-100.0); Monocytes % (auto) 4.8 % (0.0-12.0); Neutrophils % (auto) 84.7 % (37.0-80.0); Platelet Count (auto) 210 10^3/uL (140-450); Red Cell Distribution Width 14.8 % (11.8-14.3); White Blood Cell 10.6 10^3/uL (4.4-10.8)
[2024-06-05 04:36] LABS: Anion Gap 15 (5-15); Carbon Dioxide 23 mmol/L (20-31); Chloride 104 mmol/L (98-107); Potassium 4.3 mmol/L (3.5-5.1); Sodium 142 mmol/L (136-145)
[2024-06-05 04:38] LABS: Calcium 8.9 mg/dL (8.7-10.4)
[2024-06-05 04:42] LABS: BUN/Creatinine Ratio 12.3 (10.0-20.0)
[2024-06-05 04:44] LABS: Blood Urea Nitrogen 70 mg/dL (9-23); Glucose 61 mg/dL (74-106)
[2024-06-05 04:45] LABS: Phosphorus 9.2 mg/dL (2.4-5.1)
[2024-06-05 05:10] LABS: Magnesium 2.2 mg/dL (1.6-2.6)
[2024-06-05] MEDS: HEPARIN DRIP/D5W 100UNITS/ML 250 ML IV SCH ×3 (05:15→22:45)
--- NOTE | 2024-06-05 05:26 | DVH ---
EXAM: XR Chest, 1 View CLINICAL INDICATION: INTUBATED TECHNIQUE: Frontal view of the chest. COMPARISON: XY CHEST XRAY 1 VIEW on DOS: 06/04/24, XY CHEST PORTABLE on DOS: 06/04/24, XY CHEST HERNANDEZ BLE on DOS: 06/03/24, XY CHEST XRAY 1 VIEW on DOS: 06/02/24, XY CHEST PORTABLE on DOS: 06/01/24 FINDINGS: LUNGS AND PLEURAL SPACES: Congestion and edema. No pneumothorax. HEART: Unremarkable. No cardiomegaly. MEDIASTINUM: Unremarkable. Normal mediastinal contour. BONES/JOINTS: Unremarkable. No acute fracture. TUBES, LINES AND DEVICES: Right internal jugular central venous catheter tip in the superior vena c meghan. The endotracheal tube (ETT) is in satisfactory position. Enteric tube tip in the stomach. OTHER FINDINGS: . . IMPRESSION: Congestion and edema.
[2024-06-05] MEDS: DEXTROSE (50%) 50ML SYRG IV PRN (05:38)
[2024-06-05 07:06] LABS: Base Excess -6.2 mmol/L (-2.0-3.0)
[2024-06-05] MEDS: SEVELAMER 800 MG TAB PO SCH (08:14)
[2024-06-05] MEDS: SODIUM CHL 0.9% 1000 ML BAG XX ONE (11:00)
[2024-06-05 12:37] LABS: INR 0.98 (0.9-1.15); Prothrombin Time 10.4 sec (9.3-11.8)
--- NOTE | 2024-06-05 12:37 | DVHPN2 ---
Progress Note Date Seen: Jun 05, 2024 Medical Necessity Reason Pt with a Central, PICC or Fol: Yes The following are medically ne: Central Line (Temporary dialysis catheter), Dixon Catheter Reason for dixon catheter: Strict I&O Subjective Review of Systems: Deferred Objective vital signs Vital Sign Date Time Temp Pulse Resp B/P (MAP) Pulse Ox O2 Delivery O2 Flow Rate FiO2 06/05/24 11:33 90 28 112/57 (75) 99 30 06/05/24 10:00 Mechanical Ventilator+ 06/05/24 06:45 97.9 208.2 Total Intake and Output 06/04/24 06/04/24 06/05/24 14:59 22:59 06:59 Intake Total 756.250 ml 605.578 ml 255.838 ml Output Total 150 ml Balance 756.250 ml 455.578 ml 255.838 ml medications Current Medications Medications Dose Ordered Sig/[place] Route Start Time Stop Time Status Last Admin Dose Admin Pantoprazole Sodium 40 mg DAILY IV 06/01/24 10:00 06/05/24 08:13 40 MG Insulin Glargine 15 units DAILY SC 06/02/24 10:00 Cancel Ipratropium [place] 0.5 mg Q4HR NEB 06/01/24 10:00 06/05/24 09:33 0.5 MG Levalbuterol HCl 0.625 mg Q4HR NEB 06/01/24 10:00 06/05/24 09:33 0.625 MG Doxycycline Hyclate 100 ml @ 50 mls/hr Q12H IV 06/01/24 08:30 06/05/24 08:14 50 MLS/HR Meropenem 50 ml @ 17 mls/hr DAILY IV 06/02/24 10:00 06/05/24 09:24 17 MLS/HR Midazolam HCl 50 ml @ 1 mls/hr Q24H IV 06/01/24 13:15 06/04/24 22:22 6 MLS/HR Fentanyl Citrate 250 ml @ 2.5 mls/hr Q24H IV 06/01/24 13:15 06/05/24 06:30 12.5 MLS/HR Acetaminophen 650 mg Q6HP PRN PO 06/02/24 04:15 06/02/24 23:58 650 MG Propofol 100 ml @ 2.1 mls/hr Q24H IV 06/03/24 07:00 06/05/24 04:51 4.2 MLS/HR Aspirin 81 mg DAILY GT 06/03/24 11:00 06/05/24 08:15 81 MG Atorvastatin Calcium 40 mg HS GT 06/03/24 22:00 06/04/24 21:32 40 MG Norepinephrine Bitartrate 32 mg/ Sodium Chloride 250 ml @ 0.938 mls/ hr Q24H IV 06/04/24 08:30 06/04/24 15:02 4.688 MLS/HR Enteral Nutritional Formula 1,000 ml 30ML/HR GT 06/04/24 09:15 Iron Sucrose 110 ml @ 110 mls/hr DAILY@1200 IV 06/05/24 12:00 06/09/24 12:59 Epoetin Richar-epbx 10,000 unit MWF SC 06/04/24 13:30 Cancel Epoetin Richar-epbx 10,000 unit MWF@2100 [place] 06/04/24 21:00 06/04/24 20:46 10,000 UNIT Diagnostic Test (Pha) 1 strip Q6HR 06/04/24 18:00 06/05/24 12:19 1 STRIP Insulin Human Regular Q6HR SC 06/04/24 18:00 Dextrose 50 ml UD PRN IV 06/04/24 14:45 06/05/24 05:38 50 ML Heparin Sodium/ Dextrose 250 ml @ 7 mls/hr Q24H IV 06/05/24 05:15 06/05/24 09:23 700 MLS/HR Sevelamer HCl 1,200 mg TIDWM PO 06/05/24 08:00 06/05/24 08:14 1,200 MG Examination: GENERAL:Abnormal, LUNGS:Abnormal, CVS:Abnormal laboratory and microbiology Laboratory Tests 06/05/24 03:38 Test 06/05/24 03:38 Range/Units Serum Glucose 61 L 74-106 mg/dL Microbiology Date/Time Source Procedure Growth Status 06/02/24 03:30 Nose MRSA Screen - Final Complete 06/01/24 13:21 Sputum Gram Stain - Final Complete 06/01/24 13:21 Sputum Respiratory Culture - Final Complete 06/01/24 05:07 Urine - [place] Urine Culture - Final Complete 4/18/25 00:55 Blood Blood Culture - Final Complete Problem List/Assessment/Plan Problem List/Assessment/Plan Acute kidney injury in the setting of hemodynamic instability Chronic kidney disease unspecified baseline unknown Diastolic heart failure with severe pulmonary hypertension and severe mitral regurgitation Nephrotic range proteinuria History of hypertension and diabetes Acute respiratory failure Hemodialysis treatment today for metabolic and volume control cardiology plans possible heart cath, will continue dialysis treatments Avoid hypotension Pressors to maintain mean arterial pressure greater than 65 Monitoring urinary output Guarded prognosis Critical care time spent 35 minutes Plan discussed with: Other My Orders My Orders Orders - JAYME LATIF MD Procedure Category Date Status Time Renetta; Comprehensive LAB 06/04/24 In Process Panel 13:02 Anca Panel LAB 06/04/24 In Process 13:02 Complement C3 & C4 LAB 06/04/24 In Process 13:02 Anti-Dsdna Antibody LAB 06/04/24 In Process 13:02 Iron Sucrose Complex PHA 06/05/24 In Process (Venofer) 12:00 Hemodialysis Orders ORDERS 06/04/24 Transmitted 13:28 Dialysis Nursing PACO 06/04/24 In Process Message 13:28 Document Fluid Input PACO 06/04/24 In Process And Outpu 13:28 Hemodialysis Orders ORDERS 06/05/24 Transmitted 07:00 Dialysis Nursing PACO 06/05/24 In Process Message 07:00 Document Fluid Input PACO 06/05/24 In Process And Outpu 07:00 Epoetin Richar-Epbx PHA 06/04/24 In Process (Retacrit) 21:00 Dietary Evaluation Review Comments: 1. ROSSY, Reducet Nepro to 20ml/hr providing 39 gProtein 850 kcal supporting 95% protein needs and 76% energy needs 2. may increase TF Nepro to 25ml/hr (49 gPro, 1062 kcal)if pt is on dialysis. 3. Reassess protein and energy as needed. Expected Outcomes/Goals: Improve nutrition related lab values. CC Plasma Assessment Blood Product Administration S: 15:15 JAYME LATIF MD Jun 05, 2024 12:37
[2024-06-05 12:38] LABS: Partial Thromboplastin Time 99.8 SEC (24.5-34.5)
[2024-06-05] MEDS: IRON SUCROSE COMPLEX 110 ML IV SCH (14:21)
--- NOTE | 2024-06-05 18:48 | DVHPNRES ---
Progress Note Date Seen: Jun 05, 2024 Resident Creating Document: MARIO SANDERS RESIDENT Medical Necessity Reason Pt with a Central, PICC or Fol: Yes The following are medically ne: Central Line (Temporary dialysis catheter), Dixon Catheter Reason for dixon catheter: Strict I&O Subjective Review of Systems Patient was a 74-year-old female with a past medical history of type 2 diabetes mellitus, hypertension, hyperlipidemia presented to the ED with a chief complaint of chest pain. Patient reports that with the chest pain started 2 weeks ago while she was in [place] but was intermittent, left-sided/retrosternal which was [id number] in intensity which she acknowledged following which she came to the [facility] about a week ago. On Tuesday, patient started to have worsening chest pain which was radiating to the left arm and associated with dyspnea. Last night patient's chest pain increased in intensity to 10/10 following which she came to the ED. patient denied having fever or chills, had episodes of cough but denied any phlegm. Patient did not have any sick contacts. As the patient does not have teeth she has been eating pureed diet, denies any episode of syncope or loss of consciousness or aspiration. Past medical history: Type 2 diabetes mellitus, hypertension, hyperlipidemia Past surgical history: 1 C section Social history: Patient lives with her son in [place] and is currently visiting her daughter lives in [facility], denies smoking, alcohol or drug use Home medications: Amlodipine 5 mg, valsartan 160 mg, hydrochlorothiazide 12.5 mg, dapagliflozin 10 mg, aspirin 81 mg Review of systems Patient seen and examined at the bedside On mechanical ventilation no vasopressors on feeding via NG tube Patient underwent dialysis today and 2L fluid removed, tolerated well Objective vital signs Vital Sign Date Time Temp Pulse Resp B/P (MAP) Pulse Ox O2 Delivery O2 Flow Rate FiO2 06/05/24 18:00 Mechanical Ventilator+ 30 30 06/05/24 18:00 100 06/05/24 16:13 30 120/66 (84) 85 06/05/24 11:45 98.8 209.8 Total Intake and Output 06/04/24 06/04/24 06/05/24 15:00 23:00 07:00 Intake Total 740.250 ml 586.916 ml 237.6 ml Output Total 150 ml Balance 740.250 ml 436.916 ml 237.6 ml medications Current Medications Medications Dose Ordered Sig/[place] Route Start Time Stop Time Status Last Admin Dose Admin Pantoprazole Sodium 40 mg DAILY IV 06/01/24 10:00 06/05/24 08:13 40 MG Insulin Glargine 15 units DAILY SC 06/02/24 10:00 Cancel Ipratropium [place] 0.5 mg Q4HR NEB 06/01/24 10:00 06/05/24 14:36 0.5 MG Levalbuterol HCl 0.625 mg Q4HR NEB 06/01/24 10:00 06/05/24 14:36 0.625 MG Doxycycline Hyclate 100 ml @ 50 mls/hr Q12H IV 06/01/24 08:30 06/05/24 08:14 50 MLS/HR Meropenem 50 ml @ 17 mls/hr DAILY IV 06/02/24 10:00 06/05/24 09:24 17 MLS/HR Midazolam HCl 50 ml @ 1 mls/hr Q24H IV 06/01/24 13:15 06/05/24 12:49 3 MLS/HR Fentanyl Citrate 250 ml @ 2.5 mls/hr Q24H IV 06/01/24 13:15 06/05/24 06:30 12.5 MLS/HR Acetaminophen 650 mg Q6HP PRN PO 06/02/24 04:15 06/02/24 23:58 650 MG Propofol 100 ml @ 2.1 mls/hr Q24H IV 06/03/24 07:00 06/05/24 04:51 4.2 MLS/HR Aspirin 81 mg DAILY GT 06/03/24 11:00 06/05/24 08:15 81 MG Atorvastatin Calcium 40 mg HS GT 06/03/24 22:00 06/04/24 21:32 40 MG Norepinephrine Bitartrate 32 mg/ Sodium Chloride 250 ml @ 0.938 mls/ hr Q24H IV 06/04/24 08:30 06/04/24 15:02 4.688 MLS/HR Enteral Nutritional Formula 1,000 ml 30ML/HR GT 06/04/24 09:15 Iron Sucrose 110 ml @ 110 mls/hr DAILY@1200 IV 06/05/24 12:00 06/09/24 12:59 06/05/24 14:21 110 MLS/HR Epoetin Richar-epbx 10,000 unit MWF SC 06/04/24 13:30 Cancel Epoetin Richar-epbx 10,000 unit MWF@2100 [place] 06/04/24 21:00 06/04/24 20:46 10,000 UNIT Diagnostic Test (Pha) 1 strip Q6HR 06/04/24 18:00 06/05/24 18:14 1 STRIP Insulin Human Regular Q6HR SC 06/04/24 18:00 Dextrose 50 ml UD PRN IV 06/04/24 14:45 06/05/24 05:38 50 ML Sevelamer HCl 1,200 mg TIDWM PO 06/05/24 08:00 06/05/24 18:40 1,200 MG Heparin Sodium/ Dextrose 250 ml @ 4 mls/hr Q24H IV 06/05/24 13:30 06/05/24 14:17 4 MLS/HR Examination Constitutional: Patient is sedated and on mechanical ventilation with RASS -4 Gen - mild conjunctival pallor, no icterus, no cyanosis, no clubbing, no LAD, no pedal edema. Skin - Patients skin is warm and dry. HEENT - normocephalic, atraumatic, dry mucous membranes. Neck - full ROM, no LAD, no JVD Pulmonary - B/L diffuse inspiratory crackles, no wheezing, no stridor. cardiovascular - Regular S1,S2 heard, no added sounds, no murmurs heard. capillary refill normal <2 secs. GI - soft, nontender abdomen. no hepatospleenomegaly. Bowel sounds normoactive Neurological -on mechanical ventilation, pupils equal and reactive, gag reflex present laboratory and microbiology Laboratory Tests 06/05/24 03:38 Test 06/05/24 03:38 Range/Units Serum Glucose 61 L 74-106 mg/dL Microbiology Date/Time Source Procedure Growth Status 06/02/24 03:30 Nose MRSA Screen - Final Complete 06/01/24 13:21 Sputum Gram Stain - Final Complete 06/01/24 13:21 Sputum Respiratory Culture - Final Complete 06/01/24 05:07 Urine - [place] Urine Culture - Final Complete 06/01/24 00:55 Blood Blood Culture - Final Complete Problem List/Assessment/Plan Problem List/Assessment/Plan Neurology # Acute metabolic encephalopathy likely due to uremia # S/p Mechanical ventilation - sedated with fentanyl and midazolam - RASS -4 Respiratory # Acute hypoxic respiratory failure likely d/t acute CHF # B/L acute pulmonary edema likely flash Pulmonary edema from Severe MR # ?Sepsis likely due to pneumonia with Gram +/- bacteria - On mechanical ventilation - IV meropenam and doxycycline for broad spectrum coverage - sputum cultures show no growth Cardiovascular # NSTEMI likely type I # acute congestive heart failure # Cardiogenic shock on vasopressor support - EKG shows ST elevation in aVr, STd in I,II,V5,V6 - troponins uptrending - on heparin drip - atorvastatin and aspirin - cardiology on board, likely cath tomorrow - ECHO shows mild LVH and mild LV diastolic dysfunction, LVEF 65%, mod-severe mitral regurgitation, severe Pulm. HTN, RVSP 67 mm hg Nephrology # Anion Gap Metabolic acidosis likely due to uremia # severe ROSSY on CKD likely d/t shock causing ATN # Lactic acidosis # DKA less likely - on sodium bicarb drip - ABG reviewed showed mixed metabolic and respiratory acidosis, increased the RR--> improved ABG - underwent dialysis on 06/04 1.5L was removed, 06/05 2L was removed - nephrology on board Hematology # severe anemia - stool occult blood negative - given 3 units PRBCs - monitor H&H Goals of care discussed with the patient's grand-daughter for over 29 mins. Full code Lines Left IJ TLC- inserted on 06/05 right IJ dialysis catheter inserted on 06/04 intubated- 06/01 dixon cath- 06/01 critical care time spent excluding procedures: 63 mins Plan discussed with Plan discussed with: Daughter, Other (Granddaughter, RN( Zunilda Stanford )) My Orders My Orders Orders - MARIO SANDERS RESIDENT Procedure Category Date Status Time Abg W/ Co-Ox RT 06/05/24 Logged 04:00 Sevelamer (Renagel) PHA 06/05/24 In Process 08:00 Packedcell-Noactive BBK 06/05/24 Logged Bleeding 17:46 Type And Screen BBK 06/05/24 Logged 17:53 Dietary Evaluation Review Comments: 1. ROSSY, Reducet Nepro to 20ml/hr providing 39 gProtein 850 kcal supporting 95% protein needs and 76% energy needs 2. may increase TF Nepro to 25ml/hr (49 gPro, 1062 kcal)if pt is on dialysis. 3. Reassess protein and energy as needed. Expected Outcomes/Goals: Improve nutrition related lab values. CC Plasma Assessment Blood Product Administration S: 15:15 Date of Service: Jun 05, 2024 Billing Provider: ERNESTINA RIOS MD Common Visit Codes: [id number] CARE 30-74 MIN MARIO SANDERS RESIDENT Jun 05, 2024 18:48 ERNESTINA RIOS MD Jun 06, 2024 15:47
--- NOTE | 2024-06-05 20:28 | DVH ---
CHEST RADIOGRAPH Indication: CENTRAL LINE PLACEMENT Technique: Single frontal view of the chest was obtained Comparison: XY CHEST PORTABLE on DOS: 06/05/24, XY CHEST XRAY 1 VIEW on DOS: 06/04/24, XY CHEST PORTABL E on DOS: 06/04/24 FINDINGS: Lines and Tubes: Endotracheal and enteric tubes in satisfactory position. Interval placement of a lef t IJ approach central venous catheter terminating over the proximal right atrium. Right IJ approach c entral venous catheter in satisfactory position. Lungs: Hazy opacification of the right hemithorax with linear density of the right mid lung zone. Sli ghtly improved aeration of the left hemithorax. Pleura: No effusion. No pneumothorax. Cardiomediastinal contours: Unchanged Bones: No acute osseous abnormality. IMPRESSION: Interstitial prominence bilateral lungs slightly improved on the left. Right mid lung zone linear at electasis. Interval placement of Left IJ approach central venous catheter terminating over the proximal right at rium. Right IJ approach central venous catheter, endotracheal and enteric tubes in satisfactory position.
--- NOTE | 2024-06-05 21:16 | DVHNC2 ---
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: Other (resident) Indication: Hypotension Room prepared for procedure: Yes Dock Pumper performed hand hygien: Yes Maximal sterile barrier precau: Mask/Eye shield, Sterile gown, Cap, Sterlie gloves, Large sterlie drape Skin Preparation: Chlorhexidine gluconate, Providine iodine Skin preparation completely dr: Yes Insertion site: Left, Internal jugular Central line catheter type: [id number] dialysis Number of lumens: 3 Central line exchanged over a: No Post Assessment: Chest X-Ray, Proper placement Informed consent obtained: Yes Date of Service: Jun 05, 2024 Billing Provider: ERNESTINA RIOS MD Common Visit Codes: PROCEDURE ONLY Procedure Codes: [id number] NON-TUNNEL CV CATH MARIO SANDERS RESIDENT Jun 05, 2024 21:16 ERNESTINA RIOS MD Jun 09, 2024 12:30
[2024-06-05 22:18] LABS: INR 0.98 (0.9-1.15); Partial Thromboplastin Time 35.9 SEC (24.5-34.5); Prothrombin Time 10.4 sec (9.3-11.8)
--- NOTE | 2024-06-05 22:59 | DVHPN2 ---
Progress Note - Dictate Date Seen: Jun 05, 2024 Medical Necessity Reason Pt with a Central, PICC or Fol: Yes The following are medically ne: Central Line (Temporary dialysis catheter), Dixon Catheter Reason for dixon catheter: Strict I&O Subjective Patient was seen and evaluated in follow-up in the ICU. Patient is intubated and sedated on ventilator. 30% FiO2. Patietn is receiving feeding via NG tube. Patient had dialysis today with 2L fluid removed. Chest x-ray shows interstitial prominence bilateral lungs slightly improved on the left. Right mid lung zone linear atelectasis. HGB 7.5, HCT 21.5. vital signs Vital Sign Date Time Temp Pulse Resp B/P (MAP) Pulse Ox O2 Delivery O2 Flow Rate FiO2 06/05/24 20:45 99.9 102 28 130/62 (84) 100 211.8 06/05/24 20:00 30 06/05/24 20:00 Mechanical Ventilator+ Total Intake and Output 06/04/24 06/04/24 06/05/24 15:00 23:00 07:00 Intake Total 740.250 ml 586.916 ml 237.6 ml Output Total 150 ml Balance 740.250 ml 436.916 ml 237.6 ml medications Current Medications Medications Dose Ordered Sig/[place] Route Start Time Stop Time Status Last Admin Dose Admin Pantoprazole Sodium 40 mg DAILY IV 06/01/24 10:00 06/05/24 08:13 40 MG Insulin Glargine 15 units DAILY SC 06/02/24 10:00 Cancel Ipratropium [place] 0.5 mg Q4HR NEB 06/01/24 10:00 06/05/24 18:58 0.5 MG Levalbuterol HCl 0.625 mg Q4HR NEB 06/01/24 10:00 06/05/24 18:58 0.625 MG Doxycycline Hyclate 100 ml @ 50 mls/hr Q12H IV 06/01/24 08:30 06/05/24 20:28 50 MLS/HR Meropenem 50 ml @ 17 mls/hr DAILY IV 06/02/24 10:00 06/05/24 09:24 17 MLS/HR Midazolam HCl 50 ml @ 1 mls/hr Q24H IV 06/01/24 13:15 06/05/24 12:49 3 MLS/HR Fentanyl Citrate 250 ml @ 2.5 mls/hr Q24H IV 06/01/24 13:15 06/05/24 06:30 12.5 MLS/HR Acetaminophen 650 mg Q6HP PRN PO 06/02/24 04:15 06/02/24 23:58 650 MG Propofol 100 ml @ 2.1 mls/hr Q24H IV 06/03/24 07:00 06/05/24 04:51 4.2 MLS/HR Aspirin 81 mg DAILY GT 06/03/24 11:00 06/05/24 08:15 81 MG Atorvastatin Calcium 40 mg HS GT 06/03/24 22:00 06/04/24 21:32 40 MG Norepinephrine Bitartrate 32 mg/ Sodium Chloride 250 ml @ 0.938 mls/ hr Q24H IV 06/04/24 08:30 06/04/24 15:02 4.688 MLS/HR Enteral Nutritional Formula 1,000 ml 30ML/HR GT 06/04/24 09:15 Iron Sucrose 110 ml @ 110 mls/hr DAILY@1200 IV 06/05/24 12:00 06/09/24 12:59 06/05/24 14:21 110 MLS/HR Epoetin Richar-epbx 10,000 unit MWF [place] 06/04/24 13:30 Cancel Epoetin Richar-epbx 10,000 unit MWF@2100 [place] 06/04/24 21:00 06/04/24 20:46 10,000 UNIT Diagnostic Test (Pha) 1 strip Q6HR 06/04/24 18:00 06/05/24 18:14 1 STRIP Insulin Human Regular Q6HR SC 06/04/24 18:00 Dextrose 50 ml UD PRN IV 06/04/24 14:45 06/05/24 05:38 50 ML Sevelamer HCl 1,200 mg TIDWM PO 06/05/24 08:00 06/05/24 18:40 1,200 MG Heparin Sodium/ Dextrose 250 ml @ 4 mls/hr Q24H IV 06/05/24 13:30 06/05/24 14:17 4 MLS/HR objective GENERAL: Il appearing, intubated on ventilator. EYES: PERRL, EOMI. Anicteric. HENT: Moist mucous membranes. LUNGS: Decreased breath sounds. CARDIOVASCULAR: Regular rate and rhythm. ABDOMEN: Soft, nontender and nondistended. EXTREMITIES: No edema. SKIN: Warm, dry. laboratory and microbiology Laboratory Tests 06/05/24 03:38 Test 06/05/24 03:38 Range/Units Serum Glucose 61 L 74-106 mg/dL Problem List NSTEMI, rule out type 1. Rule out structural heart disease. Hypertensive emergency, resolved. Dyslipidemia. Sepsis. DKA. Acute kidney injury. Hyperkalemia. Assessment/Plan Continued all current supportive medical care. Aspirin, Lipitor. IV antibiotics as ordered. Heparin drip per pharmacy. GI prophylactics. Vasopressors for hemodynamic support. Additional plan as per the hospital course. Critical care time of 45 minutes provided to include time spent evaluation of patient at bedside, when appropriate patient/family education for diagnosis, treatment plan, review of pertinent medical information and discussion of care with specialty providers and PCP. Mechanical ventilator parameters, treatment and adjustments have personally been reviewed by me and treatment plan by telephone installer has also been reviewed. Dietary Evaluation Review Comments: 1. ROSSY, Reducet Nepro to 20ml/hr providing 39 gProtein 850 kcal supporting 95% protein needs and 76% energy needs 2. may increase TF Nepro to 25ml/hr (49 gPro, 1062 kcal)if pt is on dialysis. 3. Reassess protein and energy as needed. Expected Outcomes/Goals: Improve nutrition related lab values. Plan discussed with: Other CC Plasma Assessment Blood Product Administration S: 15:15 BRADEN RIVERA MD Jun 05, 2024 21:24
[2024-06-06] VITALS (101 sets, daily range): BP systolic 85–166; BP diastolic 36–86; PULSE 72–106; RESP 8–30; TEMP 97.7–99.7; O2SAT 97–100
[2024-06-06 04:19] LABS: Basophils # (auto) 0 10 ^3/uL (0-0.2); Basophils % (auto) 0.2 % (0.0-2.0); Eosinophils # (auto) 0.1 10 ^3/uL (0-0.8); Eosinophils % (auto) 0.8 % (0.0-7.0); Hematocrit 27.2 % (36.0-46.0); Lymphocytes # (auto) 1.5 10 ^3/uL (0.4-5.4); Lymphocytes % (auto) 13.5 % (10.0-50.0); Mean Corpuscular Hemoglobin 28.9 pg (28.0-32.0); Mean Corpuscular Hgb Conc. 33.1 g/dL (32.0-36.0); Mean Corpuscular Volume 87.4 fL (80.0-100.0); Monocytes % (auto) 8.5 % (0.0-12.0); Neutrophils # (auto) 8.8 10 ^3/uL (1.6-8.6); Nucleated Red Blood Cells % 0.4 %; Platelet Count (auto) 188 10^3/uL (140-450); Red Blood Cells 3.11 10^6/uL (4.0-5.20); Red Cell Distribution Width 14.9 % (11.8-14.3); White Blood Cell 11.4 10^3/uL (4.4-10.8)
[2024-06-06 04:33] LABS: Chloride 99 mmol/L (98-107); Potassium 4.5 mmol/L (3.5-5.1); Sodium 137 mmol/L (136-145)
[2024-06-06 04:34] LABS: Anion Gap 10 (5-15); Calcium 9.2 mg/dL (8.7-10.4); Carbon Dioxide 28 mmol/L (20-31)
[2024-06-06 04:39] LABS: BUN/Creatinine Ratio 10.9 (10.0-20.0); Glucose 91 mg/dL (74-106)
[2024-06-06 04:41] LABS: Blood Urea Nitrogen 44 mg/dL (9-23)
[2024-06-06 04:42] LABS: Phosphorus 7.5 mg/dL (2.4-5.1)
[2024-06-06 06:23] LABS: INR 0.98 (0.9-1.15); Partial Thromboplastin Time 42.9 SEC (24.5-34.5); Prothrombin Time 10.4 sec (9.3-11.8)
[2024-06-06] MEDS: HEPARIN DRIP/D5W 100UNITS/ML 250 ML IV SCH (06:45)
--- NOTE | 2024-06-06 06:47 | DVH ---
EXAM: XR Chest, 1 View CLINICAL INDICATION: RESPIRATORY FAILURE TECHNIQUE: Frontal view of the chest. COMPARISON: XY CHEST PORTABLE on DOS: 06/05/24, XY CHEST PORTABLE on DOS: 06/05/24, XY CHEST XRAY 1 V IEW on DOS: 06/04/24, XY CHEST PORTABLE on DOS: 06/04/24, XY CHEST PORTABLE on DOS: 06/03/24 FINDINGS: LUNGS AND PLEURAL SPACES: Pulmonary congestion and edema. Pneumonia cannot be excluded. No pneumot horax. HEART: Unremarkable. No cardiomegaly. MEDIASTINUM: Unremarkable. Normal mediastinal contour. BONES/JOINTS: Unremarkable. No acute fracture. TUBES, LINES AND DEVICES: The endotracheal tube (ETT) is in satisfactory position. Right internal jugular central venous catheter tip in the superior vena cava. Left internal jugular central venous catheter tip in the superior vena cava. Enteric tube tip in the stomach. OTHER FINDINGS: . . . . IMPRESSION: Pulmonary congestion and edema. Pneumonia cannot be excluded.
[2024-06-06 07:08] LABS: Base Excess 1.1 mmol/L (-2.0-3.0)
[2024-06-06 08:07] LABS: Complement C3 117 mg/dL (82-167)
[2024-06-06] MEDS: LABETALOL HCL 20 MG/4 ML VL IV ONE (09:45)
[2024-06-06] MEDS: SODIUM CHL 0.9% 1000 ML BAG XX ONE ×3 (11:00→17:25)
[2024-06-06 12:07] LABS: Anti-Centromere B Antibody <0.2 AI (0.0-0.9); Anti-Jo-1 Antibody <0.2 AI (0.0-0.9); Anti-dsDNA Antibody <1 IU/mL (0-9); Antichromatin Antibody <0.2 AI (0.0-0.9); Antiscleroderma-70 Antibody <0.2 AI (0.0-0.9); RNP Antibody <0.2 AI (0.0-0.9); Sjogren's Anti-SS-A Antibody <0.2 AI (0.0-0.9); Sjogren's Anti-SS-B Antibody <0.2 AI (0.0-0.9); Smith Antibody <0.2 AI (0.0-0.9)
--- NOTE | 2024-06-06 12:58 | DVHOP2 ---
Operative Report Operative Report CARDIAC JET DYEING MACHINE TENDER PROCEDURE REPORT [place], [place] Date of Service: 06/06/24 Wind Turbine Erector: Beverley Santamaria MD PROCEDURES PERFORMED: Coronary angiogram, left heart catheterization, conscious sedation administration and supervision, less than 15 minutes; fluoroscopy use and interpretation. sedation 15-30 mins, US guided vascular access, PREOPERATIVE DIAGNOSES: ACS POSTOP DIAGNOSIS: ACS DESCRIPTION OF PROCEDURE: The patient or appropriate family signed informed consent understanding the risks, benefits and alternatives of the procedure, they wished to proceed. The patient was brought to the cardiac roofing laborer in n.p.o. state. The patient was prepped in a sterile fashion. Sedation was used per cardiac cath protocol. I administered 2 mL of 2% lidocaine to the right wrist. With an antegrade front wall puncture. I cannulated the right radial artery and placed a 6-[place] Glidesheath slender. Next, an intra-arterial spasmolytic was administered. Next, a - 6[place] catheter an JL3.5 and XB 3 guidee and were used for coronary angiogram and LVEDP measurement and pressure pullback. I was unable to access the LM given very short LM and small aorta root. SO i iturned my attention to R groin and gave 8 cc 2% lidocaine to groin. then with US guidance I cannulated the R MICA MINER and placed a 6F sheath in patent vessel. At the completion of procedure, all guides and wires were removed, and there were no immediate complications. 6F angioseal used for closure. FINDINGS: RCA: Moderate vessel off the right sinus of Valsalva, there is ostial 70% stenosis with lack of reflux and bp dropping signifying ostial lesion. mid RCA 50% s stenosis RPL is moderate vessel with 80% stenosis LEFT MAIN: Moderate size left main, it bifurcates into LAD and circumflex. distal LM is 40% stenosis .LM in generla is small heavily disease vessel. CIRCUMFLEX: Moderate caliber vessel coming off the left main . ostial CX has a 95% stenosis. mid CX has a 90% calcific stenosis. LAD: LAD is a moderate caliber vessel coming of the left main. prox LAD is patent with diffuse plaque very small vessel. mid LAD has a long tubular 80% stenosis and distal LAD has an 85-90% long lesion. apical LAD is quite small LVEDP of 34 mmhg CONCLUSIONS: 1. severe extensive multivessel cad 2. elevated LVEDP PLAN: likely very poor pci or bypass candidate recommend HD and get LVEDP lower recommend dapt, statin recommend HF management per primary cards service BEVERLEY SANTAMARIA MD Jun 06, 2024 12:58
[2024-06-06] MEDS: HEPARIN IN NS 1000Units/500mL 1,500 ML ONE (14:00)
[2024-06-06] MEDS: ANGIOMAX 250 MG VIAL IV ONE (14:00)
[2024-06-06] MEDS: LIDOCAINE 2%HCL (LOCAL ANESTH.) INJ 20ML MDV ONE ×2 (14:00)
[2024-06-06] MEDS: IODIXANOL 320MG/ML 100ML BTL IV ONE (14:00)
[2024-06-06] MEDS: HEPARIN SODIUM (PORCINE) 5000 UNITS/ML 1ML VIAL ONE ×2 (14:00)
[2024-06-06] MEDS: SODIUM CHL 0.9% 0 ML ONE (14:00)
[2024-06-06] MEDS: VERAPAMIL 2.5MG/ML INJ 2ML VIAL IV ONE (14:00)
[2024-06-06] MEDS ORDERED: DEXTROSE (50%) 50ML SYRG IV PRN (16:45)
--- NOTE | 2024-06-06 16:57 | DVHPN2 ---
Progress Note Date Seen: Jun 06, 2024 Medical Necessity Reason Pt with a Central, PICC or Fol: Yes The following are medically ne: Central Line (Temporary dialysis catheter), Dixon Catheter Reason for dixon catheter: Strict I&O Subjective Patient reports: Other (went for [facility], HD nurse now at bedside) Review of Systems: Deferred Objective vital signs Vital Sign Date Time Temp Pulse Resp B/P (MAP) Pulse Ox O2 Delivery O2 Flow Rate FiO2 06/06/24 15:43 81 28 124/64 (84) 100 30 06/06/24 14:00 Mechanical Ventilator+ 06/06/24 11:45 99.1 210.4 Total Intake and Output 06/05/24 06/05/24 06/06/24 15:00 23:00 07:00 Intake Total 323.8 ml 372.5 ml 966.4 ml Output Total 50 ml Balance 323.8 ml 372.5 ml 916.4 ml medications Current Medications Medications Dose Ordered Sig/[place] Route Start Time Stop Time Status Last Admin Dose Admin Pantoprazole Sodium 40 mg DAILY IV 06/01/24 10:00 06/06/24 10:07 40 MG Insulin Glargine 15 units DAILY SC 06/02/24 10:00 Cancel Ipratropium [place] 0.5 mg Q4HR NEB 06/01/24 10:00 06/06/24 13:58 0.5 MG Levalbuterol HCl 0.625 mg Q4HR NEB 06/01/24 10:00 06/06/24 13:58 0.625 MG Doxycycline Hyclate 100 ml @ 50 mls/hr Q12H IV 06/01/24 08:30 06/06/24 11:05 50 MLS/HR Meropenem 50 ml @ 17 mls/hr DAILY IV 06/02/24 10:00 06/06/24 10:08 17 MLS/HR Midazolam HCl 50 ml @ 1 mls/hr Q24H IV 06/01/24 13:15 06/06/24 14:12 8 MLS/HR Fentanyl Citrate 250 ml @ 2.5 mls/hr Q24H IV 06/01/24 13:15 06/06/24 14:16 17.5 MLS/HR Acetaminophen 650 mg Q6HP PRN PO 06/02/24 04:15 06/02/24 23:58 650 MG Propofol 100 ml @ 2.1 mls/hr Q24H IV 06/03/24 07:00 06/06/24 14:10 4.2 MLS/HR Aspirin 81 mg DAILY GT 06/03/24 11:00 06/06/24 16:16 81 MG Atorvastatin Calcium 40 mg HS GT 06/03/24 22:00 06/05/24 21:38 40 MG Norepinephrine Bitartrate 32 mg/ Sodium Chloride 250 ml @ 0.938 mls/ hr Q24H IV 06/04/24 08:30 06/04/24 15:02 4.688 MLS/HR Enteral Nutritional Formula 1,000 ml 30ML/HR GT 06/04/24 09:15 Iron Sucrose 110 ml @ 110 mls/hr DAILY@1200 IV 06/05/24 12:00 06/09/24 12:59 06/06/24 14:43 110 MLS/HR Epoetin Richar-epbx 10,000 unit MWF SC 06/04/24 13:30 Cancel Epoetin Richar-epbx 10,000 unit MWF@2100 [place] 06/04/24 21:00 06/04/24 20:46 10,000 UNIT Calcium Acetate 1,334 mg TIDWMEALS PO 06/06/24 18:00 Diagnostic Test (Pha) 1 strip Q6HR 06/06/24 18:00 Insulin Human Regular Q6HR SC 06/06/24 18:00 Dextrose 50 ml UD PRN IV 06/06/24 16:45 Clopidogrel Bisulfate 75 mg DAILY GT 06/07/24 10:00 Examination: GENERAL:Abnormal, LUNGS:Abnormal, ABDOMEN:Abnormal laboratory and microbiology Laboratory Tests 06/06/24 03:00 Test 06/06/24 03:00 Range/Units Serum Glucose 91 74-106 mg/dL Microbiology Date/Time Source Procedure Growth Status 06/02/24 03:30 Nose MRSA Screen - Final Complete 06/01/24 13:21 Sputum Gram Stain - Final Complete 06/01/24 13:21 Sputum Respiratory Culture - Final Complete 06/01/24 05:07 Urine - [place] Urine Culture - Final Complete 06/01/24 00:55 Blood Blood Culture - Final Complete Problem List/Assessment/Plan Problem List/Assessment/Plan Acute kidney injury in the setting of hemodynamic instability Chronic kidney disease unspecified baseline unknown NSTEMI s/p Cath severe multivessel disease Diastolic heart failure with severe pulmonary hypertension and severe mitral regurgitation Nephrotic range proteinuria History of hypertension and diabetes Acute respiratory failure Hemodialysis treatment today for metabolic and volume control -> aggressive fluid removal epogen 3x a week poor cardiac prognosis multivessel disease Avoid hypotension Pressors to maintain mean arterial pressure greater than 65 Monitoring urinary output Guarded prognosis Critical care time spent 35 minutes Plan discussed with: Other My Orders My Orders Orders - JAYME LATIF MD Procedure Category Date Status Time Hemodialysis Orders ORDERS 06/06/24 Transmitted 16:05 Dialysis Nursing PACO 06/06/24 In Process Message 16:05 Document Fluid Input PACO 06/06/24 In Process And Outpu 16:05 Calcium Acetate PHA 06/06/24 In Process Capsule (Phoslo 18:00 Dietary Evaluation Review Comments: 1. ROSSY, Reducet Nepro to 20ml/hr providing 39 gProtein 850 kcal supporting 95% protein needs and 76% energy needs 2. may increase TF Nepro to 25ml/hr (49 gPro, 1062 kcal)if pt is on dialysis. 3. Reassess protein and energy as needed. Expected Outcomes/Goals: Improve nutrition related lab values. CC Plasma Assessment Blood Product Administration S: 15:15 JAYME LATIF MD Jun 06, 2024 16:57
[2024-06-06] MEDS: CLOPIDOGREL BISULFATE 75 MG TAB GT ONE (16:58)
[2024-06-06] MEDS ORDERED: EPOETIN ALFA-EPBX 10,000 UNIT/1ML VIAL SC SCH (17:00)
[2024-06-06] MEDS: InsuLIN REG 1unit/0.01ml Soln (100units/ml) SC SCH (18:00)
--- NOTE | 2024-06-06 18:31 | DVHPNRES ---
Progress Note Date Seen: Jun 06, 2024 Resident Creating Document: MARIO SANDERS RESIDENT Medical Necessity Reason Pt with a Central, PICC or Fol: Yes The following are medically ne: Central Line (Temporary dialysis catheter), Dixon Catheter Reason for dixon catheter: Strict I&O Subjective Review of Systems Patient was a 74-year-old female with a past medical history of type 2 diabetes mellitus, hypertension, hyperlipidemia presented to the ED with a chief complaint of chest pain. Patient reports that with the chest pain started 2 weeks ago while she was in [place] but was intermittent, left-sided/retrosternal which was [id number] in intensity which she acknowledged following which she came to the [facility] about a week ago. On Tuesday, patient started to have worsening chest pain which was radiating to the left arm and associated with dyspnea. Last night patient's chest pain increased in intensity to 10/10 following which she came to the ED. patient denied having fever or chills, had episodes of cough but denied any phlegm. Patient did not have any sick contacts. As the patient does not have teeth she has been eating pureed diet, denies any episode of syncope or loss of consciousness or aspiration. Past medical history: Type 2 diabetes mellitus, hypertension, hyperlipidemia Past surgical history: 1 C section Social history: Patient lives with her son in [place] and is currently visiting her daughter lives in [facility], denies smoking, alcohol or drug use Home medications: Amlodipine 5 mg, valsartan 160 mg, hydrochlorothiazide 12.5 mg, dapagliflozin 10 mg, aspirin 81 mg Review of systems Patient seen and examined at the bedside On mechanical ventilation no vasopressors on feeding via NG tube left heart cath done with coronary angiogram showing multivessel CAD, had elevated LVEDP and patient needs a CABG, was started on DAPT Patient underwent dialysis today and 3.8L fluid removed, tolerated well Objective vital signs Vital Sign Date Time Temp Pulse Resp B/P (MAP) Pulse Ox O2 Delivery O2 Flow Rate FiO2 06/06/24 18:00 96 06/06/24 18:00 Mechanical Ventilator+ 30 30 06/06/24 17:00 97.7 21 148/57 (87) 98 207.9 Total Intake and Output 06/05/24 06/05/24 06/06/24 15:00 23:00 07:00 Intake Total 323.8 ml 372.5 ml 966.4 ml Output Total 50 ml Balance 323.8 ml 372.5 ml 916.4 ml medications Current Medications Medications Dose Ordered Sig/[place] Route Start Time Stop Time Status Last Admin Dose Admin Pantoprazole Sodium 40 mg DAILY IV 06/01/24 10:00 06/06/24 10:07 40 MG Insulin Glargine 15 units DAILY SC 06/02/24 10:00 Cancel Ipratropium [place] 0.5 mg Q4HR NEB 06/01/24 10:00 06/06/24 13:58 0.5 MG Levalbuterol HCl 0.625 mg Q4HR NEB 06/01/24 10:00 06/06/24 13:58 0.625 MG Doxycycline Hyclate 100 ml @ 50 mls/hr Q12H IV 06/01/24 08:30 06/06/24 11:05 50 MLS/HR Meropenem 50 ml @ 17 mls/hr DAILY IV 06/02/24 10:00 06/06/24 10:08 17 MLS/HR Midazolam HCl 50 ml @ 1 mls/hr Q24H IV 06/01/24 13:15 06/06/24 14:12 8 MLS/HR Fentanyl Citrate 250 ml @ 2.5 mls/hr Q24H IV 06/01/24 13:15 06/06/24 14:16 17.5 MLS/HR Acetaminophen 650 mg Q6HP PRN PO 06/02/24 04:15 06/02/24 23:58 650 MG Propofol 100 ml @ 2.1 mls/hr Q24H IV 06/03/24 07:00 06/06/24 14:10 4.2 MLS/HR Aspirin 81 mg DAILY GT 06/03/24 11:00 06/06/24 16:16 81 MG Atorvastatin Calcium 40 mg HS GT 06/03/24 22:00 06/05/24 21:38 40 MG Norepinephrine Bitartrate 32 mg/ Sodium Chloride 250 ml @ 0.938 mls/ hr Q24H IV 06/04/24 08:30 06/04/24 15:02 4.688 MLS/HR Enteral Nutritional Formula 1,000 ml 30ML/HR GT 06/04/24 09:15 Iron Sucrose 110 ml @ 110 mls/hr DAILY@1200 IV 06/05/24 12:00 06/09/24 12:59 06/06/24 14:43 110 MLS/HR Epoetin Richar-epbx 10,000 unit MWF SC 06/04/24 13:30 Cancel Epoetin Richar-epbx 10,000 unit MWF@2100 SC 06/04/24 21:00 06/04/24 20:46 10,000 UNIT Calcium Acetate 1,334 mg TIDWMEALS PO 06/06/24 18:00 Diagnostic Test (Pha) 1 strip Q6HR 06/06/24 18:00 Insulin Human Regular Q6HR SC 06/06/24 18:00 Dextrose 50 ml UD PRN IV 06/06/24 16:45 Clopidogrel Bisulfate 75 mg DAILY GT 06/07/24 10:00 Epoetin Richar-epbx 10,000 unit MWF [place] 06/06/24 17:00 UNV Examination Constitutional: Patient is sedated and on mechanical ventilation with RASS -4 Gen - mild conjunctival pallor, no icterus, no cyanosis, no clubbing, no LAD, no pedal edema. Skin - Patients skin is warm and dry. HEENT - normocephalic, atraumatic, dry mucous membranes. Neck - full ROM, no LAD, no JVD Pulmonary - B/L diffuse inspiratory crackles, no wheezing, no stridor. cardiovascular - Regular S1,S2 heard, no added sounds, no murmurs heard. capillary refill normal <2 secs. GI - soft, nontender abdomen. no hepatospleenomegaly. Bowel sounds normoactive Neurological -on mechanical ventilation, pupils equal and reactive sluggish, gag reflex present laboratory and microbiology Laboratory Tests 06/06/24 03:00 Test 06/06/24 03:00 Range/Units Serum Glucose 91 74-106 mg/dL Microbiology Date/Time Source Procedure Growth Status 06/02/24 03:30 Nose MRSA Screen - Final Complete 06/01/24 13:21 Sputum Gram Stain - Final Complete 06/01/24 13:21 Sputum Respiratory Culture - Final Complete 06/01/24 05:07 Urine - [place] Urine Culture - Final Complete 06/01/24 00:55 Blood Blood Culture - Final Complete Problem List/Assessment/Plan Problem List/Assessment/Plan Neurology # Acute metabolic encephalopathy likely due to uremia # S/p Mechanical ventilation - sedated with fentanyl and midazolam - RASS -4 Respiratory # Acute hypoxic respiratory failure likely d/t acute CHF # B/L acute pulmonary edema likely flash Pulmonary edema from Severe MR # ?Sepsis likely due to pneumonia with Gram +/- bacteria - On mechanical ventilation - IV meropenam and doxycycline for broad spectrum coverage - sputum cultures repeated Cardiovascular # NSTEMI likely type I # acute on chronic heart failure with preserved ejection fraction # Cardiogenic shock on vasopressor support # Multivessel CAD S/P coronary angiogram and LHC # severe pulmonary HTN likely type 2 - EKG shows ST elevation in aVr, STd in I,II,V5,V6 and troponins uptrending - atorvastatin - cardiology on board, likely cath tomorrow - ECHO shows mild LVH and mild LV diastolic dysfunction, LVEF 65%, mod-severe mitral regurgitation, severe Pulm. HTN, RVSP 67 mm hg - multivessel CAD, very poor pci and CABG candidate, - LVEDP high--> hemodialysis Nephrology # Anion Gap Metabolic acidosis likely due to uremia # severe ROSSY on CKD likely d/t shock causing ATN # Lactic acidosis # DKA less likely - on sodium bicarb drip - ABG reviewed showed mixed metabolic and respiratory acidosis, increased the RR--> improved ABG - underwent dialysis on 06/04 1.5L was removed, 06/05 2L was removed, 06/06- 3.8L removed - nephrology on board Hematology # severe anemia - stool occult blood negative - given 3 units PRBCs - monitor H&H Goals of care discussed with the patient's daughter for over 29 mins. Full code Lines Left IJ TLC- inserted on 06/05 Right subclavian tunneled dialysis cath inserted 06/06 intubated- 06/01 dixon cath- 06/01 critical care time spent excluding procedures: 81 mins Plan discussed with Plan discussed with: Daughter, Other (RN ( Cele )) My Orders My Orders Orders - MARIO SANDERS RESIDENT Procedure Category Date Status Time Blood Culture MORGAN 06/06/24 In Process 10:58 Respiratory Culture MORGAN 06/06/24 Uncollected W/ Gs 10:58 Heparin In Ns PHA 06/06/24 In Process 1000units/500ml 11:42 Glucose Blood PHA 06/06/24 In Process (Accu-Chek Comfort 18:00 Insulin R (Human) PHA 06/06/24 In Process (Insulin R) 18:00 Dextrose 50% Syringe PHA 06/06/24 In Process 16:45 Clopidogrel Bisulfate PHA 06/07/24 In Process (Plavix) 10:00 Dietary Evaluation Review Comments: 1. ROSSY, Reducet Nepro to 20ml/hr providing 39 gProtein 850 kcal supporting 95% protein needs and 76% energy needs 2. may increase TF Nepro to 25ml/hr (49 gPro, 1062 kcal)if pt is on dialysis. 3. Reassess protein and energy as needed. Expected Outcomes/Goals: Improve nutrition related lab values. CC Plasma Assessment Blood Product Administration S: 15:15 Date of Service: Jun 06, 2024 Billing Provider: ERNESTINA RIOS MD Common Visit Codes: 87393-WCNGRMOV CARE 30-74 MIN, 36107-OWSIGTRT CARE-EACH +30MIN MARIO SANDERS RESIDENT Jun 06, 2024 18:31 ERNESTINA RIOS MD Jun 07, 2024 12:27
[2024-06-06] MEDS: ACCU-CHEK COMFORT CURVE STRIP VI SCH (18:34)
[2024-06-06] MEDS: CALCIUM ACETATE 667 MG CAP PO SCH (18:34)
[2024-06-06] MEDS: ALBUMIN 25% 100 ML IV ONE ×2 (18:36→20:33)
--- NOTE | 2024-06-06 19:42 | DVH ---
XY Insertion of Venous Cath, HISTORY: DIALYSIS CATH PL PROCEDURE: Informed consent was obtained. The patient was placed supine on the interventional table. A limited localization ultrasound of the [facility] neck base was obtained. The right neck base and upper c hest were prepped with chlorhexidine which was allowed to dry and draped in the usual sterile fashion . Time out was performed. IV sedation was administered. The skin and the soft tissues were infiltrate d with 1% Lidocaine . With real-time ultrasound guidance, the internal jugular vein was accessed with a micropuncture kit, and an image documenting patency was recorded to PACS. A subcutaneous tunneled tract was created from the right upper chest to the venotomy site. A 14.5 [place] Path, 19 cm lo ng hemodialysis catheter was advanced through the tunneled tract. Fluoroscopy was used to advance a guidewire through the internal jugular vein into the inferior vena cava. Following serial dilatation, a 15 Upper [place] peel-away sheath was introduced, though which was adva nced the catheter into the right atrium. The catheter tip position was confirmed with fluoroscopy. Th ere was satisfactory flow in both lumens. The catheter lumens were flushed with saline and heparin wa s left indwelling in the catheter. A post-procedure image of the chest was obtained. The neck incisio n site was closed with a Dermabond and dressed sterilely. The catheter was sutured at the skin surfac e and exit site also dressed sterilely. No immediate complication was identified. DAP 100 FLUOROSCOPY TIME: 1.2 minutes. SEDATION: Dr. Susan Dodson was personally responsible for the administration of moderate sedation during the procedure performed, including the use of an independent trained observer who had no other duties during the procedure. The drugs utilized were IV fentanyl and versed (see nursing log for details). The total time of supervision by the attending physician was approximately 30 minutes. FINDINGS: Widely patent right IJV. Post procedure image demonstrates smooth course of the hemodialysi s catheter with the tip in the right atrium. IMPRESSION: Successful placement of 14.5 [place] Path, 19 cm long hemodialysis catheter through right media intern al jugular vein. Plan: Please contact IR for removal when no longer needed.
[2024-06-06] MEDS: Nepro With Carb Steady 1 Liter Bottle GT SCH (21:20)
--- NOTE | 2024-06-06 22:50 | DVHPN2 ---
Progress Note - Dictate Date Seen: Jun 06, 2024 Medical Necessity Reason Pt with a Central, PICC or Fol: Yes The following are medically ne: Central Line (Temporary dialysis catheter), Dixon Catheter Reason for dixon catheter: Strict I&O Subjective Patient was seen and evaluated in follow-up in the ICU. Patient is intubated and sedated on ventilator. 30% FiO2. Patient underwent left heart cath with Dr. Kaur which showed severe extensive multivessel cad and elevated LVEDP. WBC 11.4, HGB 9, HCT 27.2, BUN 44, TOGGLE PRESS OPERATOR 4.02. vital signs Vital Sign Date Time Temp Pulse Resp B/P (MAP) Pulse Ox O2 Delivery O2 Flow Rate FiO2 06/06/24 11:51 122/56 06/06/24 11:45 99.1 86 10 99 210.4 06/06/24 10:29 30 06/06/24 10:00 Mechanical Ventilator+ Total Intake and Output 06/05/24 06/05/24 06/06/24 15:00 23:00 07:00 Intake Total 323.8 ml 372.5 ml 966.4 ml Output Total 50 ml Balance 323.8 ml 372.5 ml 916.4 ml medications Current Medications Medications Dose Ordered Sig/[place] Route Start Time Stop Time Status Last Admin Dose Admin Pantoprazole Sodium 40 mg DAILY IV 06/01/24 10:00 06/06/24 10:07 40 MG Insulin Glargine 15 units DAILY SC 06/02/24 10:00 Cancel Ipratropium [place] 0.5 mg Q4HR NEB 06/01/24 10:00 06/06/24 10:28 0.5 MG Levalbuterol HCl 0.625 mg Q4HR NEB 06/01/24 10:00 06/06/24 10:28 0.625 MG Doxycycline Hyclate 100 ml @ 50 mls/hr Q12H IV 06/01/24 08:30 06/06/24 11:05 50 MLS/HR Meropenem 50 ml @ 17 mls/hr DAILY IV 06/02/24 10:00 06/06/24 10:08 17 MLS/HR Midazolam HCl 50 ml @ 1 mls/hr Q24H IV 06/01/24 13:15 06/06/24 06:21 9 MLS/HR Fentanyl Citrate 250 ml @ 2.5 mls/hr Q24H IV 06/01/24 13:15 06/06/24 00:29 17.5 MLS/HR Acetaminophen 650 mg Q6HP PRN PO 06/02/24 04:15 06/02/24 23:58 650 MG Propofol 100 ml @ 2.1 mls/hr Q24H IV 06/03/24 07:00 06/06/24 11:51 10.5 MLS/HR Aspirin 81 mg DAILY GT 06/03/24 11:00 06/05/24 08:15 81 MG Atorvastatin Calcium 40 mg HS GT 06/03/24 22:00 06/05/24 21:38 40 MG Norepinephrine Bitartrate 32 mg/ Sodium Chloride 250 ml @ 0.938 mls/ hr Q24H IV 06/04/24 08:30 06/04/24 15:02 4.688 MLS/HR Enteral Nutritional Formula 1,000 ml 30ML/HR GT 06/04/24 09:15 Iron Sucrose 110 ml @ 110 mls/hr DAILY@1200 IV 06/05/24 12:00 06/09/24 12:59 06/05/24 14:21 110 MLS/HR Epoetin Richar-epbx 10,000 unit MWF SC 06/04/24 13:30 Cancel Epoetin Richar-epbx 10,000 unit MWF@2100 [place] 06/04/24 21:00 06/04/24 20:46 10,000 UNIT Diagnostic Test (Pha) 1 strip Q6HR 06/04/24 18:00 06/06/24 11:35 1 STRIP Insulin Human Regular Q6HR SC 06/04/24 18:00 Dextrose 50 ml UD PRN IV 06/04/24 14:45 06/06/24 11:29 50 ML Sevelamer HCl 1,200 mg TIDWM PO 06/05/24 08:00 06/05/24 18:40 1,200 MG Heparin Sodium/ Dextrose 250 ml @ 8 mls/hr Q24H IV 06/06/24 06:45 objective GENERAL: Il appearing, intubated on ventilator. EYES: PERRL, EOMI. Anicteric. HENT: Moist mucous membranes. LUNGS: Decreased breath sounds. CARDIOVASCULAR: Regular rate and rhythm. ABDOMEN: Soft, nontender and nondistended. EXTREMITIES: No edema. SKIN: Warm, dry. laboratory and microbiology Laboratory Tests 06/06/24 03:00 Test 06/06/24 03:00 Range/Units Serum Glucose 91 74-106 mg/dL Problem List NSTEMI, rule out type 1. Rule out structural heart disease. Hypertensive emergency, resolved. Dyslipidemia. Sepsis. DKA. Acute kidney injury. Hyperkalemia. Extensive multivessel CAD. Assessment/Plan Continued all current supportive medical care. Aspirin, Lipitor, Plavix. IV antibiotics as ordered. GI prophylactics. Vasopressors for hemodynamic support. Additional plan as per the hospital course. Critical care time of 45 minutes provided to include time spent evaluation of patient at bedside, when appropriate patient/family education for diagnosis, treatment plan, review of pertinent medical information and discussion of care with specialty providers and PCP. Mechanical ventilator parameters, treatment and adjustments have personally been reviewed by me and treatment plan by associate director of nursing has also been reviewed. Dietary Evaluation Review Comments: 1. ROSSY, Reducet Nepro to 20ml/hr providing 39 gProtein 850 kcal supporting 95% protein needs and 76% energy needs 2. may increase TF Nepro to 25ml/hr (49 gPro, 1062 kcal)if pt is on dialysis. 3. Reassess protein and energy as needed. Expected Outcomes/Goals: Improve nutrition related lab values. Plan discussed with: Other CC Plasma Assessment Blood Product Administration S: 15:15 BRADEN RIVERA MD Jun 06, 2024 13:52
[2024-06-07] VITALS (77 sets, daily range): BP systolic 90–148; BP diastolic 28–67; PULSE 40–101; RESP 0–40; TEMP 95.5–99.3; O2SAT 98–100
[2024-06-07 04:08] LABS: Basophils # (auto) 0 10 ^3/uL (0-0.2); Basophils % (auto) 0.3 % (0.0-2.0); Eosinophils # (auto) 0.2 10 ^3/uL (0-0.8); Hematocrit 25.1 % (36.0-46.0); Hemoglobin 8.5 g/dL (12.2-16.2); Lymphocytes # (auto) 1.1 10 ^3/uL (0.4-5.4); Lymphocytes % (auto) 10.7 % (10.0-50.0); Mean Corpuscular Hemoglobin 28.9 pg (28.0-32.0); Mean Corpuscular Hgb Conc. 33.7 g/dL (32.0-36.0); Mean Corpuscular Volume 85.7 fL (80.0-100.0); Monocytes # (auto) 0.8 10 ^3/uL (0-1.3); Monocytes % (auto) 7.8 % (0.0-12.0); Neutrophils # (auto) 8.2 10 ^3/uL (1.6-8.6); Neutrophils % (auto) 79.2 % (37.0-80.0); Nucleated Red Blood Cells % 0.2 %; Platelet Count (auto) 161 10^3/uL (140-450); Red Blood Cells 2.92 10^6/uL (4.0-5.20); Red Cell Distribution Width 14.7 % (11.8-14.3); White Blood Cell 10.4 10^3/uL (4.4-10.8)
[2024-06-07 04:21] LABS: Anion Gap 10 (5-15); Carbon Dioxide 29 mmol/L (20-31); Potassium 4.2 mmol/L (3.5-5.1)
[2024-06-07 04:22] LABS: Calcium 9.2 mg/dL (8.7-10.4)
[2024-06-07 04:23] LABS: % Iron Saturation 47.1 % (15-50)
[2024-06-07 04:29] LABS: Blood Urea Nitrogen 27 mg/dL (9-23); Chloride 96 mmol/L (98-107); Glucose 120 mg/dL (74-106); Sodium 135 mmol/L (136-145)
--- NOTE | 2024-06-07 05:51 | DVH ---
EXAM: XR Chest, 1 View CLINICAL INDICATION: B/L pulmonary congestion, on vent TECHNIQUE: Frontal view of the chest. COMPARISON: XY CHEST PORTABLE on DOS: 06/06/24, XY CHEST PORTABLE on DOS: 06/05/24, XY CHEST PORTABLE on DOS: 06/05/24, XY CHEST XRAY 1 VIEW on DOS: 06/04/24, XY CHEST PORTABLE on DOS: 06/04/24 FINDINGS: LUNGS AND PLEURAL SPACES: Pulmonary congestion and edema. Pneumonia cannot be excluded. No pneumot horax. HEART: Unremarkable. No cardiomegaly. MEDIASTINUM: Unremarkable. Normal mediastinal contour. BONES/JOINTS: Unremarkable. No acute fracture. TUBES, LINES AND DEVICES: Right internal jugular central venous catheter tip in the superior vena c meghan. Left internal jugular central venous catheter tip in the superior vena cava. The endotracheal tube (ETT) is in satisfactory position. Enteric tube tip cannot be seen but is below the diaphragm. OTHER FINDINGS: . . . IMPRESSION: Pulmonary congestion and edema. Pneumonia cannot be excluded.
[2024-06-07 07:00] LABS: Base Excess 2.3 mmol/L (-2.0-3.0)
[2024-06-07] MEDS: ALBUMIN 25% 100 ML IV PRN (09:25)
[2024-06-07] MEDS: SODIUM CHL 0.9% 1000 ML BAG XX ONE (09:25)
[2024-06-07] MEDS ORDERED: CLOPIDOGREL BISULFATE 75 MG TAB GT SCH (10:00)
--- NOTE | 2024-06-07 12:50 | DVHPN2 ---
Progress Note Date Seen: Jun 07, 2024 Medical Necessity Reason Pt with a Central, PICC or Fol: Yes The following are medically ne: Central Line (Temporary dialysis catheter), Dixon Catheter Reason for dixon catheter: Strict I&O Subjective Patient reports: Other (hd today while on levophed) Review of Systems: Deferred Objective vital signs Vital Sign Date Time Temp Pulse Resp B/P (MAP) Pulse Ox O2 Delivery O2 Flow Rate FiO2 06/07/24 12:08 96 28 139/67 (91) 98 30 06/07/24 11:30 95.9 204.6 06/07/24 06:27 Mechanical Ventilator+ Total Intake and Output 06/06/24 06/06/24 06/07/24 14:59 22:59 06:59 Intake Total 399.3 ml 594.9 ml 709.1 ml Output Total 30 ml 50 ml Balance 399.3 ml 564.9 ml 659.1 ml medications Current Medications Medications Dose Ordered Sig/[place] Route Start Time Stop Time Status Last Admin Dose Admin Pantoprazole Sodium 40 mg DAILY IV 06/01/24 10:00 06/06/24 10:07 40 MG Insulin Glargine 15 units DAILY SC 06/02/24 10:00 Cancel Ipratropium [place] 0.5 mg Q4HR NEB 06/01/24 10:00 06/07/24 10:29 0.5 MG Levalbuterol HCl 0.625 mg Q4HR NEB 06/01/24 10:00 06/07/24 10:29 0.625 MG Doxycycline Hyclate 100 ml @ 50 mls/hr Q12H IV 06/01/24 08:30 06/06/24 21:14 50 MLS/HR Meropenem 50 ml @ 17 mls/hr DAILY IV 06/02/24 10:00 06/06/24 10:08 17 MLS/HR Midazolam HCl 50 ml @ 1 mls/hr Q24H IV 06/01/24 13:15 06/07/24 09:08 8 MLS/HR Fentanyl Citrate 250 ml @ 2.5 mls/hr Q24H IV 06/01/24 13:15 06/07/24 05:29 15 MLS/HR Acetaminophen 650 mg Q6HP PRN PO 06/02/24 04:15 06/02/24 23:58 650 MG Propofol 100 ml @ 2.1 mls/hr Q24H IV 06/03/24 07:00 06/07/24 07:42 8.4 MLS/HR Aspirin 81 mg DAILY GT 06/03/24 11:00 06/06/24 16:16 81 MG Atorvastatin Calcium 40 mg HS GT 06/03/24 22:00 06/06/24 21:14 40 MG Norepinephrine Bitartrate 32 mg/ Sodium Chloride 250 ml @ 0.938 mls/ hr Q24H IV 06/04/24 08:30 06/07/24 10:32 0.938 MLS/HR Enteral Nutritional Formula 1,000 ml 30ML/HR GT 06/04/24 09:15 06/06/24 21:20 1,000 ML Iron Sucrose 110 ml @ 110 mls/hr DAILY@1200 IV 06/05/24 12:00 06/09/24 12:59 06/06/24 14:43 110 MLS/HR Epoetin Richar-epbx 10,000 unit MWF [place] 06/04/24 13:30 Cancel Epoetin Richar-epbx 10,000 unit MWF@2100 [place] 06/04/24 21:00 06/06/24 21:15 10,000 UNIT Calcium Acetate 1,334 mg TIDWMEALS PO 06/06/24 18:00 06/06/24 18:34 1,334 MG Diagnostic Test (Pha) 1 strip Q6HR 06/06/24 18:00 06/07/24 05:26 1 STRIP Insulin Human Regular Q6HR [place] 06/06/24 18:00 06/06/24 22:59 2 UNITS Dextrose 50 ml UD PRN IV 06/06/24 16:45 Clopidogrel Bisulfate 75 mg DAILY GT 06/07/24 10:00 Epoetin Richar-epbx 10,000 unit MWF [place] 06/06/24 17:00 UNV Albumin Human 100 ml @ 100 mls/hr PRN PRN IV 06/07/24 08:30 06/07/24 23:59 06/07/24 10:25 100 MLS/HR Examination: GENERAL:Abnormal, CVS:Abnormal laboratory and microbiology Laboratory Tests 06/07/24 03:15 Test 06/07/24 03:15 Range/Units Serum Glucose 120 H 74-106 mg/dL Microbiology Date/Time Source Procedure Growth Status 06/02/24 03:30 Nose MRSA Screen - Final Complete 06/01/24 13:21 Sputum Gram Stain - Final Complete 06/01/24 13:21 Sputum Respiratory Culture - Final Complete 06/01/24 05:07 Urine - [place] Urine Culture - Final Complete 06/01/24 00:55 Blood Blood Culture - Final Complete Problem List/Assessment/Plan Problem List/Assessment/Plan Acute kidney injury in the setting of hemodynamic instability Chronic kidney disease unspecified baseline unknown NSTEMI s/p Cath severe multivessel disease Diastolic heart failure with severe pulmonary hypertension and severe mitral regurgitation Nephrotic range proteinuria History of hypertension and diabetes Acute respiratory failure Hemodialysis treatment today for metabolic and volume control -> aggressive fluid removal epogen 3x a week poor cardiac prognosis multivessel disease Avoid hypotension Pressors to maintain mean arterial pressure greater than 65 Monitoring urinary output Guarded prognosis Critical care time spent 35 minutes Plan discussed with: Other My Orders My Orders Orders - JAYME LATIF MD Procedure Category Date Status Time Hemodialysis Orders ORDERS 06/06/24 Transmitted 16:05 Dialysis Nursing PACO 06/06/24 In Process Message 16:05 Document Fluid Input PACO 06/06/24 In Process And Outpu 16:05 Calcium Acetate PHA 06/06/24 In Process Capsule (Phoslo 18:00 Hemodialysis Orders ORDERS 06/07/24 Transmitted 07:00 Dialysis Nursing PACO 06/07/24 In Process Message 07:00 Document Fluid Input PACO 06/07/24 In Process And Outpu 07:00 Albumin 25% (Albutein) PHA 06/07/24 In Process 08:30 Dietary Evaluation Review Comments: 1. ROSSY, Reducet Nepro to 20ml/hr providing 39 gProtein 850 kcal supporting 95% protein needs and 76% energy needs 2. may increase TF Nepro to 25ml/hr (49 gPro, 1062 kcal)if pt is on dialysis. 3. Reassess protein and energy as needed. Expected Outcomes/Goals: Improve nutrition related lab values. CC Plasma Assessment Blood Product Administration S: 15:15 JAYME LATIF MD Jun 07, 2024 12:50
[2024-06-07] MEDS ORDERED: LORazepam 2MG/ML-1ML VIAL IV PRN (13:30)
[2024-06-07 14:06] LABS: Antimyeloperoxidase (MPO) Ab <0.2 units (0.0-0.9); Antiproteinase 3 (PR-3) Ab <0.2 units (0.0-0.9)
[2024-06-07] MEDS: MORPHINE SULFATE INJ 2 MG/ml SYRG IV PRN (14:57)
[2024-06-07 16:07] LABS: Cytoplasmic (C-ANCA) <1:20 titer (Neg:<1:20); Perinuclear (P-ANCA) <1:20 titer (Neg:<1:20)
--- NOTE | 2024-06-07 18:12 | DVHDS2 ---
Summary Date of Admission Jun 01, 2024 at 02:26 Date and Time of Expiration: Jun 07, 2024 16:32 Reason for Admission: NSTEMI probable type 1 Hypertensive emergency DKA Sepsis probably secondary to UTI does pneumonia Acute congestive heart failure (pending LVEF) Acute respiratory failure due to above ROSSY hemodynamically mediated Hyperkalemia Diabetes Nonadherent Wounds: none Labs/Diagnostic Data: Laboratory Results Test 06/07/24 06:49 06/07/24 05:30 06/07/24 03:15 06/06/24 15:41 Blood Gas Specimen Type Arterial Blood Gas Sample Site Right radial Blood Gas Patient Temperature 37.0 Arterial Blood Date Drawn [id number] Arterial Blood pH 7.468 (7.350-7.450) Arterial Blood Partial Pressure CO2 36.7 mmHg (32.0-45.0) Arterial Blood Partial Pressure O2 80.1 mmHg (83.0-108.0) Arterial Blood HCO3 26.0 mmol/L (21.0-28.0) Arterial Blood Oxygen Saturation 95.6 % (94.0-98.0) Arterial Blood Base Excess 2.3 mmol/L (-2.0-3.0) Arterial Blood Oxyhemoglobin 94.7 % (94.0-98.0) Arterial Blood Carboxyhemoglobin 0.6 % (0.5-1.5) Arterial Blood Methemoglobin 0.3 % (0.0-1.5) Anil Test Modified Blood Gas Total Hemoglobin 9.30 g/dL (12.0-16.0) Blood Gas Set Respiration Rate 28.0 Blood Gas Modality Vent - ac Blood Gas Spontaneous Rate 28 FiO2 % 30.0 Blood Gas Tidal Volume 400.0 Blood Gas PEEP or CPAP 5.0 POC Glucose 122 mg/dl (70-106) White Blood Count 10.4 10^3/uL (4.4-10.8) Red Blood Count 2.92 10^6/uL (4.0-5.20) Hemoglobin 8.5 g/dL (12.2-16.2) Hematocrit 25.1 % (36.0-46.0) Mean Corpuscular Volume 85.7 fL (80.0-100.0) Mean Corpuscular Hemoglobin 28.9 pg (28.0-32.0) Mean Corpuscular Hemoglobin Concent 33.7 g/dL (32.0-36.0) Red Cell Distribution Width 14.7 % (11.8-14.3) Platelet Count 161 10^3/uL (140-450) Mean Platelet Volume 9.4 fL (6.9-10.8) Neutrophils (%) (Auto) 79.2 % (37.0-80.0) Lymphocytes (%) (Auto) 10.7 % (10.0-50.0) Monocytes (%) (Auto) 7.8 % (0.0-12.0) Eosinophils (%) (Auto) 2.0 % (0.0-7.0) Basophils (%) (Auto) 0.3 % (0.0-2.0) Neutrophils # (Auto) 8.2 10 ^3/uL (1.6-8.6) Lymphocytes # (Auto) 1.1 10 ^3/uL (0.4-5.4) Monocytes # (Auto) 0.8 10 ^3/uL (0-1.3) Eosinophils # (Auto) 0.2 10 ^3/uL (0-0.8) Basophils # (Auto) 0 10 ^3/uL (0-0.2) Nucleated Red Blood Cells 0.2 % Sodium Level 135 mmol/L (136-145) Potassium Level 4.2 mmol/L (3.5-5.1) Chloride Level 96 mmol/L (98-107) Carbon Dioxide Level 29 mmol/L (20-31) Anion Gap 10 (5-15) Blood Urea Nitrogen 27 mg/dL (9-23) Creatinine 2.71 mg/dL (0.550-1.02) Glomerular Filtration Rate Calc 18 mL/min (>90) BUN/Creatinine Ratio 10.0 (10.0-20.0) Serum Glucose 120 mg/dL (74-106) Calcium Level 9.2 mg/dL (8.7-10.4) Iron Level 64 ug/dL (50-170) Total Iron Binding Capacity 136 ug/dL (250-425) Percent Iron Saturation 47.1 % (15-50) Ferritin 415.2 ng/mL (10-291) Hepatitis B Surface Antigen Negative (Negative) Test 06/06/24 05:00 06/06/24 03:00 06/05/24 03:38 06/04/24 18:45 Prothrombin Time 10.4 sec (9.3-11.8) Prothrombin Time INR 0.98 (0.9-1.15) Activated Partial Thromboplast Time 42.9 SEC (24.5-34.5) Phosphorus Level 7.5 mg/dL (2.4-5.1) Magnesium Level 2.2 mg/dL (1.6-2.6) Anti-Nuclear Antibody Comment Comment (.) Cytoplasmic ANCA (c-ANCA) Antibody <1:20 titer (Neg:<1:20) Anti-Proteinase 3 (c-ANCA) <0.2 units (0.0-0.9) Atypical p-ANCA <1:20 titer (Neg:<1:20) Perinuclear ANCA (p-ANCA) Antibody <1:20 titer (Neg:<1:20) Myeloperoxidase Antibody <0.2 units (0.0-0.9) RAH-1 Antibody <0.2 AI (0.0-0.9) SS-A/Ro Antibody <0.2 AI (0.0-0.9) SS-B/La Antibody <0.2 AI (0.0-0.9) Sm Antibody <0.2 AI (0.0-0.9) INSURANCE CLAIMS ADJUSTER Antibody <0.2 AI (0.0-0.9) Scl-70 (Scleroderma) Antibody <0.2 AI (0.0-0.9) Anti-Double Strand DNA Antibody <1 IU/mL (0-9) Chromatin Antibody <0.2 AI (0.0-0.9) Centromere B Antibody <0.2 AI (0.0-0.9) Complement C3 117 mg/dL (82-167) Complement C4 35 mg/dL (12-38) Test 06/04/24 10:50 06/04/24 09:50 06/04/24 03:15 06/03/24 02:55 Blood Gas Critical Value Read Back Yes Blood Gas Notified Whom Krzysztof jiang md Blood Gas Notified Time [id number] Blood Gas Notified By Bull melendrez Lactic Acid Level 0.6 mmol/L (0.4-2.0) Erythrocyte Sedimentation Rate 114 mm/hr (0-20) Total Bilirubin 0.2 mg/dL (0.2-1.0) Aspartate Amino Transferase (AST) 75 U/L (13-40) Alanine Aminotransferase (ALT) 25 U/L (7-40) Alkaline Phosphatase 89 U/L (46-116) Total Protein 6.3 g/dL (5.7-8.2) Albumin 3.6 g/dL (3.2-4.8) Platelet Estimate [place] Large Platelets Few Test 06/02/24 06:30 06/01/24 14:00 06/01/24 12:35 06/01/24 12:00 Blood Gas Spontaneous Tidal Volume 849 Troponin I High Sensitivity 6715 ng/L (</=34) Blood Gas Liter Flow 10.00 Stool Occult Blood Negative (Negative) Stool Occult Blood Sample #3 (Negative) Test 06/01/24 08:25 06/01/24 07:50 06/01/24 05:07 06/01/24 05:05 Serum Osmolality 363 mOsm/kg (278-298) Beta-Hydroxybutyric Acid 0.137 mmol/L (< 0.4) Urine Color Colorless (Yellow) Urine Clarity Clear (Clear) Urine pH 6.0 (5.0-9.0) Urine Specific Groom 1.012 (1.001-1.035) Urine Protein 2+ (Negative) Urine Ketones Negative (Negative) Urine Blood 1+ /uL (Negative) Urine Nitrite Negative (Negative) Urine Bilirubin Negative (Negative) Urine Urobilinogen Normal mg/dL (Negative) Urine Leukocyte Esterase Negative /uL (Negative) Urine RBC 2 /hpf (0 - 4) Urine Microscopic WBC 17 /HPF (0-5) Urine Squamous Epithelial Cells Few /hpf (<5) Urine Bacteria None seen /hpf (None Seen) Urine Osmolality 382 mOsm/kg Urine Random Microalbumin 2548.9 ug/mL (Not Estab.) Urine Creatinine 44.36 mg/dL (30.0-125.0) Urine Protein/Creatinine Ratio 8.53 Urine Sodium 49 mmol/L (40-220) Urine Glucose 4+ mg/dL (Normal) Urine Total Protein 378.6 mg/dL (1-14) Urine Opiates Screen Neg (NEGATIVE) Urine Fentanyl Screen Neg (NEGATIVE) Urine Barbiturates Screen Neg (NEGATIVE) Urine Phencyclidine Screen Neg (NEGATIVE) Urine Amphetamines Screen Neg (NEGATIVE) Urine Benzodiazepines Screen Neg (NEGATIVE) Urine Cocaine Screen Neg (NEGATIVE) Urine Cannabinoids Screen Neg (NEGATIVE) Influenza Type A Antigen Negative (Negative) Influenza Type B Antigen Negative (Negative) SARS-CoV-2 Antigen (Rapid) Negative (NEGATIVE) Test 06/01/24 02:55 06/01/24 01:02 05/31/24 22:36 Hemoglobin A1c 5.3 % A1C (<5.7) Triglycerides Level 147 mg/dL (< 150) Cholesterol Level 227 mg/dL (< 200) LDL Cholesterol 165 mg/dL (< 100) HDL Cholesterol 37 mg/dL (40-59) Vitamin B12 Level 390 pg/mL (211-911) Vitamin D 25-Hydroxy 10.9 ng/mL (30.0-100) Thyroid Stimulating Hormone (TSH) 0.71 uIU/mL (0.55-4.78) Blood Gas EPAP 5 Blood Gas IPAP 12 B-Type Natriuretic Peptide 604.23 pg/mL (0-100) Other Laboratory Tests 06/07/24 03:15 Brief Hx & Hospital Course: HPI Patient was a 74-year-old female with a past medical history of type 2 diabetes mellitus, hypertension, hyperlipidemia presented to the ED with a chief complaint of chest pain. Patient reports that with the chest pain started 2 weeks ago while she was in [place] but was intermittent, left-sided/retrosternal which was [id number] in intensity which she acknowledged following which she came to the [facility] about a week ago. On Tuesday, patient started to have worsening chest pain which was radiating to the left arm and associated with dyspnea. Last night patient's chest pain increased in intensity to 10/10 following which she came to the ED. patient denied having fever or chills, had episodes of cough but denied any phlegm. Patient did not have any sick contacts. As the patient does not have teeth she has been eating pureed diet, denies any episode of syncope or loss of consciousness or aspiration. Past medical history: Type 2 diabetes mellitus, hypertension, hyperlipidemia Past surgical history: 1 C section Social history: Patient lives with her son in [place] and is currently visiting her daughter lives in [facility], denies smoking, alcohol or drug use Home medications: Amlodipine 5 mg, valsartan 160 mg, hydrochlorothiazide 12.5 mg, dapagliflozin 10 mg, aspirin 81 mg Hospital course Patient came into the hospital with a chest pain, EKG showed ST elevation in the AVR and ST depression in leads 1, V5 V6, troponin levels elevated was started on heparin drip, aspirin and atorvastatin. chest x-ray showed severe pulmonary congestion. Patient had high anion gap metabolic acidosis with a ROSSY on CKD with uremia and low urine output. Lactic acid was elevated and bedside focus revealed collapsible IVC following which patient was initially given fluids and had to be started on vasopressor support because of the low blood pressure. On day 1 of admission after 2 hours of being started on the vasopressor support, patient was noted to have increased work of breathing and was not able to talk in frozen is following which she was put on mechanical ventilation. Patient was then shifted to the ICU for further care. Nephrology were consulted in the patient was started on hemodialysis with a about 7 L of fluid removed after 3 dialysis sessions. Patient underwent coronary angiogram which showed severe multivessel coronary artery disease with elevated LVEDP and was a poor candidate for PCI and CABG, was put on DAPT and continued with the hemodialysis to reduce fluid overload. Family were informed in a prolonged discussion about in the patient's current medical condition in the need for hemodialysis given the patient was in severe ROSSY and had no urine output. Family decided to change the code status of the patient to comfort measures. Patient was extubated on 06/07 at 3:17 p.m. and was pronounced at 4:32 p.m. Consults/Reason for consult Cardiology consultation for NSTEMI type 1 Operations or Procedures Operative Report Operative Report CARDIAC EMERGENCY DEPARTMENT COORDINATOR PROCEDURE REPORT [place], [place] Date of Service: 06/06/24 Director Operations: Grzegorz Santamaria MD PROCEDURES PERFORMED: Coronary angiogram, left heart catheterization, conscious sedation administration and supervision, less than 15 minutes; fluoroscopy use and interpretation. sedation 15-30 mins, US guided vascular access, PREOPERATIVE DIAGNOSES: ACS POSTOP DIAGNOSIS: ACS DESCRIPTION OF PROCEDURE: The patient or appropriate family signed informed consent understanding the risks, benefits and alternatives of the procedure, they wished to proceed. The patient was brought to the cardiac cath lab manager in n.p.o. state. The patient was prepped in a sterile fashion. Sedation was used per cardiac cath protocol. I administered 2 mL of 2% lidocaine to the right wrist. With an antegrade front wall puncture. I cannulated the right radial artery and placed a 6-Tristanian Glidesheath slender. Next, an intra-arterial spasmolytic was administered. Next, a - 6French [place] catheter an JL3.5 and XB 3 guidee and were used for coronary angiogram and LVEDP measurement and pressure pullback. I was unable to access the LM given very short LM and small aorta root. SO i iturned my attention to R groin and gave 8 cc 2% lidocaine to groin. then with US guidance I cannulated the R SENIOR MATERIALS PLANNER and placed a 6F sheath in patent vessel. At the completion of procedure, all guides and wires were removed, and there were no immediate complications. 6F angioseal used for closure. FINDINGS: RCA: Moderate vessel off the right sinus of Valsalva, there is ostial 70% stenosis with lack of reflux and bp dropping signifying ostial lesion. mid RCA 50% s stenosis RPL is moderate vessel with 80% stenosis LEFT MAIN: Moderate size left main, it bifurcates into LAD and circumflex. distal LM is 40% stenosis .LM in generla is small heavily disease vessel. CIRCUMFLEX: Moderate caliber vessel coming off the left main . ostial CX has a 95% stenosis. mid CX has a 90% calcific stenosis. LAD: LAD is a moderate caliber vessel coming of the left main. prox LAD is patent with diffuse plaque very small vessel. mid LAD has a long tubular 80% stenosis and distal LAD has an 85-90% long lesion. apical LAD is quite small LVEDP of 34 mmhg CONCLUSIONS: 1. severe extensive multivessel cad 2. elevated LVEDP PLAN: likely very poor pci or bypass candidate recommend HD and get LVEDP lower recommend dapt, statin recommend HF management per primary cards service GRZEGORZ SANTAMARIA MD Jun 06, 2024 12:58 XY Insertion of Venous Cath, HISTORY: DIALYSIS CATH PL PROCEDURE: Informed consent was obtained. The patient was placed supine on the interventional table. A limited localization ultrasound of the [facility] neck base was obtained. The right neck base and upper chest were prepped with chlorhexidine which was allowed to dry and draped in the usual sterile fashion. Time out was performed. IV sedation was administered. The skin and the soft tissues were infiltrated with 1% Lidocaine . With real-time ultrasound guidance, the internal jugular vein was accessed with a micropuncture kit, and an image documenting patency was recorded to PACS. A subcutaneous tunneled tract was created from the right upper chest to the venotomy site. A 14.5 Tristanian Kellogg Path, 19 cm long hemodialysis catheter was advanced through the tunneled tract. Fluoroscopy was used to advance a guidewire through the internal jugular vein into the inferior vena cava. Following serial dilatation, a 15 Tristanian peel-away sheath was introduced, though which was advanced the catheter into the right atrium. The catheter tip position was confirmed with fluoroscopy. There was satisfactory flow in both lumens. The catheter lumens were flushed with saline and heparin was left indwelling in the catheter. A post-procedure image of the chest was obtained. The neck incision site was closed with a Dermabond and dressed sterilely. The catheter was sutured at the skin surface and exit site also dressed sterilely. No immediate complication was identified. DAP 100 FLUOROSCOPY TIME: 1.2 minutes. SEDATION: Dr. Susan Dodson was personally responsible for the administration of moderate sedation during the procedure performed, including the use of an independent trained observer who had no other duties during the procedure. The drugs utilized were IV fentanyl and versed (see nursing log for details). The total time of supervision by the attending physician was approximately 30 minutes. FINDINGS: Widely patent right IJV. Post procedure image demonstrates smooth course of the hemodialysis catheter with the tip in the right atrium. IMPRESSION: Successful placement of 14.5 arabic Kellogg Path, 19 cm long hemodialysis catheter through right internal jugular vein. Plan: Please contact IR for removal when no longer needed. ATED BY: ALEC DODSON MD DICTATED DATE/TIME: 06/06/241939 Final Diagnosis/Problems List # Acute metabolic encephalopathy likely due to uremia # S/p Mechanical ventilation # Acute hypoxic respiratory failure likely d/t acute CHF # B/L acute pulmonary edema likely flash Pulmonary edema from Severe MR # ?Sepsis likely due to pneumonia with Gram +/- bacteria # NSTEMI likely type I # acute on chronic heart failure with preserved ejection fraction # Cardiogenic shock on vasopressor support # Multivessel CAD S/P coronary angiogram and LHC # severe pulmonary HTN likely type 2 # Anion Gap Metabolic acidosis likely due to uremia # severe ROSSY on CKD likely d/t shock causing ATN # Lactic acidosis # DKA less likely # severe anemia Discharge Disposition: at Hospital MARIO TSAI RESIDENT Jun 07, 2024 18:12
--- NOTE | 2024-06-07 23:10 | DVHPN2 ---
Progress Note - Dictate Date Seen: Jun 07, 2024 Medical Necessity Reason Pt with a Central, PICC or Fol: Yes The following are medically ne: Central Line (Temporary dialysis catheter), Dixon Catheter Reason for dixon catheter: Strict I&O Subjective Patient was seen and evaluated in follow up in the ICU earlier today. Patient is intubated and sedated on ventilator. 30% FiO2. Patient receiving vasopressors. HGB 8.5, HCT 25.1, CL 96, BUN 27, MAINTENANCE WORKER HOUSE TRAILER 2.71. Chest x-ray showed pulmonary congestion and edema. Family is considering compassionate extubation today. vital signs Vital Sign Date Time Temp Pulse Resp B/P (MAP) Pulse Ox O2 Delivery O2 Flow Rate FiO2 06/07/24 12:00 30 06/07/24 11:30 95.9 81 28 148/58 (88) 100 204.6 06/07/24 06:27 Mechanical Ventilator+ Total Intake and Output 06/06/24 06/06/24 06/07/24 15:00 23:00 07:00 Intake Total 395.5 ml 654.3 ml 652.4 ml Output Total 30 ml 50 ml Balance 395.5 ml 624.3 ml 602.4 ml medications Current Medications Medications Dose Ordered Sig/[place] Route Start Time Stop Time Status Last Admin Dose Admin Pantoprazole Sodium 40 mg DAILY IV 06/01/24 10:00 06/06/24 10:07 40 MG Insulin Glargine 15 units DAILY SC 06/02/24 10:00 Cancel Ipratropium [place] 0.5 mg Q4HR NEB 06/01/24 10:00 06/07/24 10:29 0.5 MG Levalbuterol HCl 0.625 mg Q4HR NEB 06/01/24 10:00 06/07/24 10:29 0.625 MG Doxycycline Hyclate 100 ml @ 50 mls/hr Q12H IV 06/01/24 08:30 06/06/24 21:14 50 MLS/HR Meropenem 50 ml @ 17 mls/hr DAILY IV 06/02/24 10:00 06/06/24 10:08 17 MLS/HR Midazolam HCl 50 ml @ 1 mls/hr Q24H IV 06/01/24 13:15 06/07/24 09:08 8 MLS/HR Fentanyl Citrate 250 ml @ 2.5 mls/hr Q24H IV 06/01/24 13:15 06/07/24 05:29 15 MLS/HR Acetaminophen 650 mg Q6HP PRN PO 06/02/24 04:15 06/02/24 23:58 650 MG Propofol 100 ml @ 2.1 mls/hr Q24H IV 06/03/24 07:00 06/07/24 07:42 8.4 MLS/HR Aspirin 81 mg DAILY GT 06/03/24 11:00 06/06/24 16:16 81 MG Atorvastatin Calcium 40 mg HS GT 06/03/24 22:00 06/06/24 21:14 40 MG Norepinephrine Bitartrate 32 mg/ Sodium Chloride 250 ml @ 0.938 mls/ hr Q24H IV 06/04/24 08:30 06/07/24 10:32 0.938 MLS/HR Enteral Nutritional Formula 1,000 ml 30ML/HR GT 06/04/24 09:15 06/06/24 21:20 1,000 ML Iron Sucrose 110 ml @ 110 mls/hr DAILY@1200 IV 06/05/24 12:00 06/09/24 12:59 06/06/24 14:43 110 MLS/HR Epoetin Richar-epbx 10,000 unit MWF SC 06/04/24 13:30 Cancel Epoetin Richar-epbx 10,000 unit MWF@2100 SC 06/04/24 21:00 06/06/24 21:15 10,000 UNIT Calcium Acetate 1,334 mg TIDWMEALS PO 06/06/24 18:00 06/06/24 18:34 1,334 MG Diagnostic Test (Pha) 1 strip Q6HR 06/06/24 18:00 06/07/24 05:26 1 STRIP Insulin Human Regular Q6HR SC 06/06/24 18:00 06/06/24 22:59 2 UNITS Dextrose 50 ml UD PRN IV 06/06/24 16:45 Clopidogrel Bisulfate 75 mg DAILY GT 06/07/24 10:00 Epoetin Richar-epbx 10,000 unit MWF MT 06/06/24 17:00 UNV Albumin Human 100 ml @ 100 mls/hr PRN PRN IV 06/07/24 08:30 06/07/24 23:59 06/07/24 10:25 100 MLS/HR objective GENERAL: Il appearing, intubated on ventilator. EYES: PERRL, EOMI. Anicteric. HENT: Moist mucous membranes. LUNGS: Decreased breath sounds. CARDIOVASCULAR: Regular rate and rhythm. ABDOMEN: Soft, nontender and nondistended. EXTREMITIES: No edema. SKIN: Warm, dry. laboratory and microbiology Laboratory Tests 06/07/24 03:15 Test 06/07/24 03:15 Range/Units Serum Glucose 120 H 74-106 mg/dL Problem List NSTEMI, rule out type 1. Rule out structural heart disease. Hypertensive emergency, resolved. Dyslipidemia. Sepsis. DKA. Acute kidney injury. Hyperkalemia. Extensive multivessel CAD. Assessment/Plan Continued all current supportive medical care. Aspirin, Lipitor, Plavix. IV antibiotics as ordered. GI prophylactics. Vasopressors for hemodynamic support. Additional plan as per the hospital course. Critical care time of 45 minutes provided to include time spent evaluation of patient at bedside, when appropriate patient/family education for diagnosis, treatment plan, review of pertinent medical information and discussion of care with specialty providers and PCP. Mechanical ventilator parameters, treatment and adjustments have personally been reviewed by me and treatment plan by strapper and buffer has also been reviewed. Dietary Evaluation Review Comments: 1. ROSSY, Reducet Nepro to 20ml/hr providing 39 gProtein 850 kcal supporting 95% protein needs and 76% energy needs 2. may increase TF Nepro to 25ml/hr (49 gPro, 1062 kcal)if pt is on dialysis. 3. Reassess protein and energy as needed. Expected Outcomes/Goals: Improve nutrition related lab values. Plan discussed with: Other CC Plasma Assessment Blood Product Administration S: 15:15 BRADEN RIVERA MD Jun 07, 2024 12:17
--- NOTE | 2024-06-10 12:44 | DVHPNRES ---
Progress Note Date Seen: Jun 07, 2024 Resident Creating Document: MARIO SANDERS RESIDENT Medical Necessity Reason Pt with a Central, PICC or Fol: Yes The following are medically ne: Central Line (Temporary dialysis catheter), Dixon Catheter Reason for dixon catheter: Strict I&O Subjective Review of Systems Patient was a 74-year-old female with a past medical history of type 2 diabetes mellitus, hypertension, hyperlipidemia presented to the ED with a chief complaint of chest pain. Patient reports that with the chest pain started 2 weeks ago while she was in [place] but was intermittent, left-sided/retrosternal which was [id number] in intensity which she acknowledged following which she came to the [facility] about a week ago. On Tuesday, patient started to have worsening chest pain which was radiating to the left arm and associated with dyspnea. Last night patient's chest pain increased in intensity to 10/10 following which she came to the ED. patient denied having fever or chills, had episodes of cough but denied any phlegm. Patient did not have any sick contacts. As the patient does not have teeth she has been eating pureed diet, denies any episode of syncope or loss of consciousness or aspiration. Past medical history: Type 2 diabetes mellitus, hypertension, hyperlipidemia Past surgical history: 1 C section Social history: Patient lives with her son in [place] and is currently visiting her daughter lives in [facility], denies smoking, alcohol or drug use Home medications: Amlodipine 5 mg, valsartan 160 mg, hydrochlorothiazide 12.5 mg, dapagliflozin 10 mg, aspirin 81 mg Review of systems Patient seen and examined at the bedside On mechanical ventilation no vasopressors on feeding via NG tube Objective medications Current Medications Medications Dose Ordered Sig/[place] Route Start Time Stop Time Status Last Admin Dose Admin Insulin Glargine 15 units DAILY SC 06/02/24 10:00 Cancel Epoetin Richar-epbx 10,000 unit MWF SC 06/04/24 13:30 Cancel Epoetin Richar-epbx 10,000 unit MWF SC 06/06/24 17:00 UNV Examination Constitutional: Patient is sedated and on mechanical ventilation with RASS -4 Gen - mild conjunctival pallor, no icterus, no cyanosis, no clubbing, no LAD, no pedal edema. Skin - Patients skin is warm and dry. HEENT - normocephalic, atraumatic, dry mucous membranes. Neck - full ROM, no LAD, no JVD Pulmonary - B/L diffuse inspiratory crackles, no wheezing, no stridor. cardiovascular - Regular S1,S2 heard, no added sounds, no murmurs heard. capillary refill normal <2 secs. GI - soft, nontender abdomen. no hepatospleenomegaly. Bowel sounds normoactive Neurological -on mechanical ventilation, pupils equal and reactive sluggish, gag reflex present laboratory and microbiology Laboratory Tests 06/07/24 03:15 Test 06/07/24 03:15 Range/Units Serum Glucose 120 H 74-106 mg/dL Microbiology Date/Time Source Procedure Growth Status 06/06/24 18:57 Sputum Gram Stain - Final Complete 06/06/24 18:57 Sputum Respiratory Culture - Final Complete 06/06/24 16:50 Blood Blood Culture - Preliminary NO GROWTH AFTER 72 HOURS OF INCUBATION. Resulted 06/02/24 03:30 Nose MRSA Screen - Final Complete 06/01/24 05:07 Urine - [place] Urine Culture - Final Complete Problem List/Assessment/Plan Problem List/Assessment/Plan Neurology # Acute metabolic encephalopathy likely due to uremia # S/p Mechanical ventilation - sedated with fentanyl and midazolam - RASS -4 Respiratory # Acute hypoxic respiratory failure likely d/t acute CHF # B/L acute pulmonary edema likely flash Pulmonary edema from Severe MR # ?Sepsis likely due to pneumonia with Gram +/- bacteria - On mechanical ventilation - IV meropenam and doxycycline for broad spectrum coverage - sputum cultures repeated Cardiovascular # NSTEMI likely type I # acute on chronic heart failure with preserved ejection fraction # Cardiogenic shock on vasopressor support likely present on admission # Multivessel CAD S/P coronary angiogram and LHC # severe pulmonary HTN likely type 2 - EKG shows ST elevation in aVr, STd in I,II,V5,V6 and troponins uptrending - atorvastatin - cardiology on board, likely cath tomorrow - ECHO shows mild LVH and mild LV diastolic dysfunction, LVEF 65%, mod-severe mitral regurgitation, severe Pulm. HTN, RVSP 67 mm hg - multivessel CAD, very poor pci and CABG candidate, - LVEDP high--> hemodialysis Nephrology # Anion Gap Metabolic acidosis likely due to uremia # severe ROSSY on CKD likely d/t shock causing ATN # Lactic acidosis # DKA less likely - on sodium bicarb drip - ABG reviewed showed mixed metabolic and respiratory acidosis, increased the RR--> improved ABG - underwent dialysis on 06/04 1.5L was removed, 06/05 2L was removed, 06/06- 3.8L removed - nephrology on board Hematology # severe anemia - stool occult blood negative - given 3 units PRBCs - monitor H&H Goals of care discussed with the patient's sisters and her daughter for over 33 mins. Code status changed to comfort measures. Lines Left IJ TLC- inserted on 06/05 Right subclavian tunneled dialysis cath inserted 06/06 intubated- 06/01 dixon cath- 06/01 critical care time spent excluding procedures: 63 mins Plan discussed with Plan discussed with: Daughter, Other (Patient's sisters, RN ( Claribel )) Dietary Evaluation Review Comments: 1. ROSSY, Reducet Nepro to 20ml/hr providing 39 gProtein 850 kcal supporting 95% protein needs and 76% energy needs 2. may increase TF Nepro to 25ml/hr (49 gPro, 1062 kcal)if pt is on dialysis. 3. Reassess protein and energy as needed. Expected Outcomes/Goals: Improve nutrition related lab values. CC Plasma Assessment Blood Product Administration S: 15:15 MARIO SANDERS RESIDENT Jun 10, 2024 12:44
== END 2024-06-07 16:32 | DRG 720 ==
LOC: ER 22:30 → OVERFLOW 06-01 02:26 → ICU WEST 06-03 23:44
PROVIDERS: ADMIT Internal Medicine; ATTEND Internal Medicine
PROC: 5A09357 Assistance with Respiratory Ventilation, Less than 24 Consecutive Hours, Continuous Positive Airway Pressure (ICD-10-PCS; 2024-05-31)
PROC: 06HY33Z Insertion of Infusion Device into Lower Vein, Percutaneous Approach (ICD-10-PCS; principal; 2024-06-01)
PROC: 5A1955Z Respiratory Ventilation, Greater than 96 Consecutive Hours (ICD-10-PCS; 2024-06-01)
PROC: 0BH17EZ Insertion of Endotracheal Airway into Trachea, Via Natural or Artificial Opening (ICD-10-PCS; 2024-06-01)
PROC: 30233N1 Transfusion of Nonautologous Red Blood Cells into Peripheral Vein, Percutaneous Approach (ICD-10-PCS; 2024-06-01)
PROC: 05HM33Z Insertion of Infusion Device into Right Internal Jugular Vein, Percutaneous Approach (ICD-10-PCS; 2024-06-04)
PROC: 5A1D70Z Performance of Urinary Filtration, Intermittent, Less than 6 Hours Per Day (ICD-10-PCS; 2024-06-04)
PROC: 05HN33Z Insertion of Infusion Device into Left Internal Jugular Vein, Percutaneous Approach (ICD-10-PCS; 2024-06-05)
PROC: 5A1D70Z Performance of Urinary Filtration, Intermittent, Less than 6 Hours Per Day (ICD-10-PCS; 2024-06-05)
PROC: 0JH63XZ Insertion of Tunneled Vascular Access Device into Chest Subcutaneous Tissue and Fascia, Percutaneous Approach (ICD-10-PCS; 2024-06-06)
PROC: 02H633Z Insertion of Infusion Device into Right Atrium, Percutaneous Approach (ICD-10-PCS; 2024-06-06)
PROC: B5181ZA Fluoroscopy of Superior Vena Cava using Low Osmolar Contrast, Guidance (ICD-10-PCS; 2024-06-06)
PROC: B548ZZA Ultrasonography of Superior Vena Cava, Guidance (ICD-10-PCS; 2024-06-06)
PROC: 4A023N7 Measurement of Cardiac Sampling and Pressure, Left Heart, Percutaneous Approach (ICD-10-PCS; 2024-06-06)
PROC: B211YZZ Fluoroscopy of Multiple Coronary Arteries using Other Contrast (ICD-10-PCS; 2024-06-06)
PROC: 5A1D70Z Performance of Urinary Filtration, Intermittent, Less than 6 Hours Per Day (ICD-10-PCS; 2024-06-06)
PROC: 5A1D70Z Performance of Urinary Filtration, Intermittent, Less than 6 Hours Per Day (ICD-10-PCS; 2024-06-07)
DX: A41.59 Other Gram-negative sepsis (principal); N17.0 Acute kidney failure with tubular necrosis; J96.01 Acute respiratory failure with hypoxia; R57.0 Cardiogenic shock; G93.41 Metabolic encephalopathy; I50.33 Acute on chronic diastolic (congestive) heart failure; J15.69 Pneumonia due to other Gram-negative bacteria; J15.9 Unspecified bacterial pneumonia; I21.4 Non-ST elevation (NSTEMI) myocardial infarction; I27.22 Pulmonary hypertension due to left heart disease; I13.0 Hypertensive heart and chronic kidney disease with heart failure and stage 1 through stage 4 chronic kidney disease, or unspecified chronic kidney disease; E87.20 Acidosis, unspecified; E11.22 Type 2 diabetes mellitus with diabetic chronic kidney disease; E78.5 Hyperlipidemia, unspecified; D64.9 Anemia, unspecified; I16.1 Hypertensive emergency; E87.5 Hyperkalemia; N18.9 Chronic kidney disease, unspecified; E66.9 Obesity, unspecified; E11.65 Type 2 diabetes mellitus with hyperglycemia; J96.21 Acute and chronic respiratory failure with hypoxia; I34.0 Nonrheumatic mitral (valve) insufficiency; I25.10 Atherosclerotic heart disease of native coronary artery without angina pectoris; Z79.899 Other long term (current) drug therapy; Z68.21 Body mass index [BMI] 21.0-21.9, adult
CPT/HCPCS: 36415; 36556; 36558; 36600; 71045; 71250; 76775; 76937; 77001; 80048; 80053; 80061; 80307; 81001; 82010; 82043; 82270; 82306; 82570; 82607; 82728; 82805; 82962; 83036; 83516; 83520; 83540; 83550; 83605; 83735; 83880; 83930; 83935; 84100; 84132; 84156; 84300; 84443; 84484; 85014; 85018; 85025; 85610; 85652; 85730; 86160; 86225; 86235; 86256; 86850; 86900; 86901; 86920; 87040; 87070; 87081; 87086; 87205; 87340; 87426; 87804; 90935; 93005; 93306; 93458; 94002; 94003; 94640; 99152; 99291; C1894; G0378; J0692; J1642; J1756; J1815; J2003; J2185; J2470; J2704; P9047; Q9967